=== PATIENT | female | born 1950 | race Caucasian/White ===

== ENCOUNTER 2016-07-16 19:45 | Outpatient (CLI) | payer MEDICARE, OTHER ==
[~2016-07-16 19:45] MED LIST: ALPR0.5T7 PO; ASPI-587 PO; CALC-671 PO; CHOL200014 PO; DIVA250T4 PO; FLEC100T PO; FLECAINIDE; FLUO20CA42 PO; HYDR-2890; LEVO125T PO; LISI40TA PO; LISINOPRIL; MULT-1039 PO; NAPR500T8 PO; OMEP40CA36 PO; ONDA-42 SL; SERT100T8; SIMV40TA4 PO; SYNTHROID; TRAZ150T72 PO; [UNRECOGNIZED DRUG - OTHER] PO
== END 2016-07-17 06:35 | disposition home or self-care (01) ==
LOC: SLEEP 19:45
PROVIDERS: ATTEND Nurse Practitioner Family
DX: G47.33 Obstructive sleep apnea (adult) (pediatric) (principal)
CPT/HCPCS: 95811

== ENCOUNTER → 2016-07-19 | Outpatient (CLI) | payer MEDICARE, OTHER ==
--- NOTE | 2016-08-01 20:27 | Diagnostic Imaging Report ---
Bilateral screening mammogram. The current study was also evaluated with a Computer Aided Detection (CAD) system. INDICATION: Screening. No current complaints stated on the questionnaire. COMPARISON: 07/18/2015. FINDINGS: The breasts are composed of heterogeneously dense parenchyma which may decrease mammographic sensitivity. Multiple benign-appearing calcifications are seen. Allowing for technique and positional differences, no suspicious change is seen. IMPRESSION: Dense breasts with no definite change. ACR BI-RADS Category 2: Benign findings. Result letter will be mailed to the patient. Note: At least 10% of breast cancer is not imaged by mammography. Dictated by: Dictated on workstation # [id number]
== END ==
LOC: RAD 09:38
PROVIDERS: ATTEND Nurse Practitioner Community Health
DX: Z12.31 Encounter for screening mammogram for malignant neoplasm of breast (principal)
CPT/HCPCS: 77067

== ENCOUNTER 2016-08-01 09:19 | Outpatient (RCR) | payer MEDICARE, OTHER ==
[2016-07-22 15:09] LABS: INR 1.9 (0.8-1.4); PROTHROMBIN TIME PATIENT 21.7 SEC (12.2-14.7)
[2016-08-01 09:54] LABS: INR 1.4 (0.8-1.4); PROTHROMBIN TIME PATIENT 17.2 SEC (12.2-14.7)
[2016-08-09 10:18] LABS: INR 1.5 (0.8-1.4); PROTHROMBIN TIME PATIENT 17.7 SEC (12.2-14.7)
== END 2016-10-20 | disposition home or self-care (01) ==
LOC: LAB 09:19
PROVIDERS: ATTEND Nurse Practitioner Family
DX: I48.0 Paroxysmal atrial fibrillation (principal)
CPT/HCPCS: 36415; 85610

== ENCOUNTER → 2017-08-18 | Outpatient (CLI) | payer MEDICARE, OTHER ==
--- NOTE | 2017-08-18 11:15 | Diagnostic Imaging Report ---
INDICATION: Routine screening. COMPARISON: 07/19/2016 and 07/18/2015. TECHNIQUE: 2D and 3D bilateral screening mammography was performed with CAD. FINDINGS: Scattered fibroglandular densities are identified bilaterally. Benign-appearing calcifications are identified bilaterally. No spiculated mass or malignant appearing microcalcifications are seen. The axillae are unremarkable. IMPRESSION: No mammographic features suspicious for malignancy are identified. ACR BI-RADS Category 2: Benign findings. Result letter will be mailed to the patient. Note: At least 10% of breast cancer is not imaged by mammography. Dictated by: Dictated on workstation # [id number]
== END ==
LOC: RAD 08:27
PROVIDERS: ATTEND Nurse Practitioner Community Health
DX: Z12.31 Encounter for screening mammogram for malignant neoplasm of breast (principal)
CPT/HCPCS: 77067

== ENCOUNTER → 2017-12-11 | Outpatient (CLI) | payer MEDICARE, OTHER ==
[~2017-12-11] MED LIST changes: +APIX5TAB PO; +ASPI81TA16 PO; +CALC-694 PO; -CHOL200014 PO; +CHOL200085 PO; +DIVA-74 PO; +DIVA250T12 PO; -DIVA250T4 PO; +FLUO40CA PO; +LEVO100T7 PO
[2017-12-11 10:19] LABS: RED BLOOD COUNT 3.72 10^6/uL (4.35-5.85); RETICULOCYTE % 1.61 % (0.50-2.40)
[2017-12-11 13:06] LABS: BILIRUBIN,URINE NEGATIVE (NEGATIVE); CLARITY,URINE CLEAR; COLOR,URINE YELLOW; GLUCOSE, URINE (UA) NEGATIVE (NEGATIVE); KETONES,URINE NEGATIVE (NEGATIVE); LEUKOCYTE ESTERASE ,URINE 1+ (NEGATIVE); NITRITE,URINE NEGATIVE (NEGATIVE); PH,URINE 8 (5-9); PROTEIN,URINE NEGATIVE (NEGATIVE); UROBILINOGEN,URINE 1 MG/DL (NORMAL)
[2017-12-11 13:19] LABS: BACTERIA,URINE LARGE /HPF; RBC,URINE 0-2 /HPF
== END ==
LOC: LAB 09:59
PROVIDERS: ATTEND Nurse Practitioner Community Health
DX: D50.9 Iron deficiency anemia, unspecified (principal)
CPT/HCPCS: 36415; 81000; 82607; 82728; 82746; 83540; 85045; 87088; 87186

== ENCOUNTER 2017-12-25 10:15 | Outpatient (CLI) | payer MEDICARE, OTHER ==
[~2017-12-25] VITALS: Ht 167.6 cm; Wt 61.2 kg
[~2017-12-25 10:15] MED LIST changes: -APIX5TAB PO; -ASPI81TA16 PO; -CALC-694 PO; -DIVA250T12 PO; -FLUO40CA PO; -LEVO100T7 PO
[2017-12-25] MEDS ORDERED: DIVA250T12 PO (10:26)
[2017-12-25] MEDS ORDERED: ASPI81TA16 PO (10:26)
[2017-12-25] MEDS ORDERED: CALC-694 PO (10:26)
[2017-12-25] MEDS ORDERED: LEVO100T7 PO (10:26)
[2017-12-25] MEDS ORDERED: FLUO40CA PO (10:26)
[2017-12-25] MEDS ORDERED: APIX5TAB PO (10:26)
== END 2017-12-25 11:59 | disposition home or self-care (01) ==
LOC: PREOP 10:15
PROVIDERS: ATTEND Surgery
DX: Z01.818 Encounter for other preprocedural examination (principal)

== ENCOUNTER 2017-12-29 07:33 | Day surgery (SDC) | payer MEDICARE, OTHER ==
[~2017-12-29] VITALS: Ht 167.6 cm; Wt 61.2 kg
[~2017-12-29 07:33] MED LIST changes: +APIX5TAB PO; +ASPI81TA16 PO; +CALC-694 PO; +DIVA250T12 PO; +FLUO40CA PO; +LEVO100T7 PO
[2017-12-29] MEDS ORDERED: NS IV 500 ML 500 ML ONE (07:42)
[2017-12-29] MEDS ORDERED: NS IV 500 ML 500 ML IV PRN (07:47)
[2017-12-29 07:58] VITALS: BP 163/88
[2017-12-29] MEDS ORDERED: HURRICAINE EXT TUBE (BENZOCAINE) XX PRN (08:00)
[2017-12-29] MEDS ORDERED: fentaNYL INJECTION 100 MCG/2 ML AMP IVP ONE (08:00)
[2017-12-29] MEDS ORDERED: MIDAZOLAM 2 MG/2 ML (VERSED) VIAL IVP ONE (08:00)
[2017-12-29] MEDS ORDERED: MIDAZOLAM 2 MG/2 ML (VERSED) VIAL ONE ×6 (08:38→09:41)
[2017-12-29] MEDS ORDERED: fentaNYL INJECTION 100 MCG/2 ML AMP ONE (08:38)
[2017-12-29] MEDS ORDERED: HURRICAINE EXT TUBE (BENZOCAINE) ONE (08:38)
--- NOTE | 2017-12-29 10:00 | History & Physicial ---
History of Present Illness History of Present Illness Reason for visit/HPI to undergo an upper endoscopy with concomitant colonoscopy, in view of Sheri deficiency anemia. In addition, she has a family history of colon cancer as well. Date of Admission 12/29/17 Date Seen by a Provider: Dec 29, 2017 Time Seen by a Provider: 08:10 I consulted on this patient on 12/29/17 09:58 Attending Physician Ayaan Small MD Admitting Physician Faviola William DO Consult Allergies and Home Medications Allergies Coded Allergies: No Known Drug Allergies (Unverified , 03/14/16) Home Medications Apixaban 5 Mg Tablet, 5 MG PO BID, (Reported) Aspirin 81 Mg Tablet.dr, 81 MG PO HS, (Reported) Calcium Carbonate/Vitamin D3 1 Each Tablet, 1 EACH PO DAILY, (Reported) Divalproex Sodium 250 Mg Tab.er.24h, 250 MG PO HS, (Reported) Flecainide Acetate 100 Mg Tablet, 100 MG PO BID, (Reported) Fluoxetine HCl 40 Mg Capsule, 40 MG PO DAILY, (Reported) Levothyroxine Sodium 100 Mcg Tablet, 100 MCG PO DAILY, (Reported) Lisinopril 40 Mg Tablet, 40 MG PO DAILY, (Reported) Multivit-Min/FA/Lycopene/Lut 1 Each Tablet, 1 EACH PO DAILY, (Reported) Naproxen 500 Mg Tablet.dr, 500 MG PO Q12H PRN for BACK PAIN, (Reported) Omeprazole 40 Mg Capsule.dr, 40 MG PO DAILY, (Reported) Simvastatin 40 Mg Tablet, 40 MG PO HS, (Reported) Patient Home Medication List Home Medication List Reviewed: Yes Past Hyliiti-Pojjtn-Xignmy Hx Patient Social History Marrital Status: Employed/Student: retired Alcohol Use: Denies Use Recreational Drug Use: No Smoking Status: Former Smoker Former Smoker, Quit: Mar 14, 2000 Type Used: Cigarettes Recent Foreign Travel: No Contact w/other who traveled: No Recent Hopitalizations: No Recent Infectious Disease Expo: No Immunizations Up To Date Tetanus Booster (TDap): Less than 5yrs Date of Pneumonia Vaccine: Mar 14, 2015 Date of Influenza Vaccine: Jan 08, 2016 Seasonal Allergies Seasonal Allergies: No Surgeries Yes Hysterectomy, Joint Replacement, Orthopedic, Tonsillectomy, Tubal Ligation Respiratory No Currently Using CPAP: No Cardiovascular Yes Atrial Fibrillation, Hypertension Reproductive System Hx Reproductive Disorders: No Sexually Transmitted Disease: No HIV/AIDS: No 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 BALLS History: Hysterectomy Gastrointestinal Yes Polyps Musculoskeletal Yes Arthritis, Chronic Back Pain Endocrine Endocrine Disorders: Hypothyroidsim HEENT HEENT Disorders: Cataract Loss of Vision: Bilateral Hearing Impairment: Denies Psychosocial Behavioral Health Disorders: Anxiety, Depression Blood Transfusions Adverse Reaction to a Blood Tr: No (N/A) Family Medical History Family Hx: Colon cancer Review of Systems Constitutional: no symptoms reported EENTM: no symptoms reported Respiratory: no symptoms reported Cardiovascular: no symptoms reported Gastrointestinal: see HPI Genitourinary: no symptoms reported Musculoskeletal: joint pain Skin: no symptoms reported Psychiatric/Neurological: No Symptoms Reported Physical Exam Vital Signs Vital Signs - First Documented 12/29/17 07:58 Temp 97.1 Pulse 56 Resp 16 B/P (MAP) 163/88 (113) Pulse Ox 100 O2 Delivery Room Air Capillary Refill : Height, Weight, BMI Height: 5'6.00" Weight: 135lbs. 0.0oz. 61.499972vn; 21.8 BMI Method:Stated General Appearance: No Apparent Distress Respiratory: Lungs Clear Cardiovascular: Regular Rate, Rhythm Gastrointestinal: Non Tender, Soft Rectal: Deferred Neurologic/Psychiatric: Oriented x3 Skin: Warm/Dry Assessment/Plan Assessment and Plan lady with iron deficiency anemia and a family history of colon cancer. For upper endoscopy with colonoscopy Admission Diagnosis Admission Status: Other (Outpt Proc) AYAAN SMALL MD Dec 29, 2017 10:00
--- NOTE | 2017-12-29 10:03 | Conscious Sedation/ASA ---
Conscious Sedation Pre-Proced Time 08:12 ASA Score 2 For ASA 3 and 4: Consider anesthesia and medical clearance. Also, for patients with a history of failed moderate sedation consider anesthesia. Airway Lungs Heart ASA score ASA 1: a normal healthy patient ASA 2: a patient with a mild systemic disease (mid diabetes, controlled hypertension, obesity ASA 3: a patient with a severe systemic disease that limits activity (angina , COPD, prior Myocardial infarction) ASA 4: a patient with an incapacitating disease that is a constant threat to life (CHF, renal failure) ASA 5: a moribund patient not expected to survive 24 hrs. (ruptured aneurysm) ASA 6: a declared brain patient whose organs are being harvested. For emergent operations, add the letter E after the classification Mallampati Classification Grade 1 Sedation Plan Discussed options with patient/fam The patient is an appropriate candidate to undergo the planned procedure, sedation, and anesthesia. The patient immediately re-assessed prior to indication. ABDOUL SMALL MD Dec 29, 2017 10:03
--- OUTSIDE RECORDS SUMMARY | 2017-12-29 10:04 | XMS REPORT ---
Author Author TINO GRESHAM [facility] Address [address] [place] [address] Care Team Providers Care Catalogue Maker Name Role Phone TINO GRESHAM Unavailable PROBLEMS Type Condition ICD9-CM Code VTZ00-OA Code Onset Dates Condition Status SNOMED Code Problem Hypothyroidism, unspecified type E03.9 Active 24516850 Problem Atrial fibrillation, unspecified type I48.91 Active 03009724 Problem Hyperlipidemia, unspecified hyperlipidemia type E78.5 Active 58198781 Problem Abnormal laboratory test result R89.9 Active 642492469 Problem Frequent falls R29.6 Active 744082611 Problem Anxiety F41.9 Active 82095245 Problem Anemia, unspecified type D64.9 Active 452122392 Problem Essential hypertension I10 Active 61548847 Problem Sleep apnea in adult G47.33 Active 23820783 Problem Sleep apnea in adult G47.30 Active 37980399 Problem Psychophysiological insomnia F51.04 Active 958772162 Problem Microcytic anemia D50.9 Active 274147486 Problem Other bipolar disorder F31.89 Active 50300254 Problem Hypertriglyceridemia E78.1 Active 308193032 Problem Forgetfulness R68.89 Active 92836358 Problem Chronic atrial fibrillation I48.2 Active 764617260 Problem Other chronic pain G89.29 Active 35708976 Problem Unspecified symptoms and signs involving cognitive functions and awareness R41.9 Active 000020879 Problem Depression, unspecified depression type F32.9 Active 66595017 Problem Dorsalgia, unspecified M54.9 Active 709073110 Problem PAF (paroxysmal atrial fibrillation) I48.0 Active 787963146 ALLERGIES No Information ENCOUNTERS Encounter Location Date Diagnosis [facility] [address] [facility] [id number] [address] Feb, [facility] [address] [facility] [id number] [address] Nov, [facility] [id number] [place] [address]86[address] 13 Nov, 2017 Microcytic anemia D50.9 ; Diaper rash L22 ; Urinary tract infection without hematuria, site unspecified N39.0 and Anxiety F41.9 [facility] [id number] [place] [address] 19712- 8762 12 Nov, 2017 Microcytic anemia D50.9 [facility] [id number] [place] [address] 10865- 9359 Oct, Hypertriglyceridemia E78.1 and Abnormal laboratory test result R89.9 [place] [address] [address] Aug, PAF (paroxysmal atrial fibrillation) I48.0 ; Hyperlipidemia , unspecified hyperlipidemia type E78.5 ; Essential hypertension I10 and Sleep apnea in adult G47.30 [place] [address] [address] July, Hypertriglyceridemia E78.1 and Abnormal laboratory test result R89.9 [facility] [id number] [place] [address] 76513- 2605 July, Chronic atrial fibrillation I48.2 and Hypothyroidism, unspecified type E03.9 [facility] [id number] [place] [address] 98872- 2063 16 Jul, 2017 Sleep apnea in adult G47.33 ; Chronic atrial fibrillation I48.2 ; Depression, unspecified depression type F32.9 ; Essential hypertension I10 ; Hypothyroidism, unspecified type E03.9 ; Encounter for screening mammogram for breast cancer Z12.31 and Anxiety F41.9 [place] [id number] [place] [address] 96572- 4730 Jun, [facility] [id number] [place] [address]6479 -9989 09 May, 2017 Acute nasopharyngitis J00 [place] [id number] [place] [address] 76136- 6928 Jan, Medicare annual wellness visit, initial Z00.00 and Encounter for immunization Z23 [place] [id number] [place] [address] 21523- 8738 20 Nov, 2016 [facility] [place] [id number] [place] [address] 89068- 9742 13 Nov, 2016 Sebaceous cyst L72.3 [place] [address] [address] Oct, Other eczema L30.8 [facility] [id number] [place] [address] 95997- 7076 Sep, Hyperlipidemia, unspecified hyperlipidemia type E78.5 and Sleep apnea in adult G47.33 [facility] [place] [id number] [place] [address] 64393- 0815 Sep, PAF (paroxysmal atrial fibrillation) I48.0 ; Hyperlipidemia , unspecified hyperlipidemia type E78.5 ; Sleep apnea in adult G47.33 and Essential hypertension I10 [place] [id number] [place] [address] 26481- 8485 Aug, Hypothyroidism, unspecified type E03.9 ; PAF (paroxysmal atrial fibrillation) I48.0 ; Hyperlipidemia, unspecified hyperlipidemia type E78.5 ; Sleep apnea in adult G47.33 and Essential hypertension I10 [place] [id number] [place] [address] 26600- 0233 Jun, PAF (paroxysmal atrial fibrillation) I48.0 ; Hyperlipidemia , unspecified hyperlipidemia type E78.5 ; Sleep apnea in adult G47.33 and Essential hypertension I10 [place] [id number] [place] [address] 15745- 0854 Jun, PAF (paroxysmal atrial fibrillation) I48.0 ; Hyperlipidemia , unspecified hyperlipidemia type E78.5 ; Sleep apnea in adult G47.33 and Essential hypertension I10 [place] [id number] [place] [address] 35079- 9694 Jun, Breast cancer screening Z12.39 ; Yeast vaginitis B37.3 ; Sleep apnea in adult G47.30 and Encounter for immunization Z23 [place] [id number] [place] [address] 84142- 0152 May, Hypothyroidism, unspecified type E03.9 [facility] [place] [id number] [place] [address] 12370- 9346 May, Hypothyroidism, unspecified type E03.9 [facility] [place] [id number] [place] [address] 41975- 3115 May, Hypothyroidism, unspecified type E03.9 [place] [address] 91700- 8289 May, [facility] [id number] [place] [address] 48100- 1678 May, Other bipolar disorder F31.89 [place] [address] 45782- 1683 May, Other bipolar disorder F31.89 [facility] [place] [id number] [place] [address] 61964- 8643 Mar, PAF (paroxysmal atrial fibrillation) I48.0 ; Essential hypertension I10 ; Hyperlipidemia, unspecified hyperlipidemia type E78.5 and Sleep apnea in adult G47.33 [place] [id number] [place] [address] 31774- 4168 Mar, Depression, unspecified depression type F32.9 ; Sleep apnea in adult G47.33 and Psychophysiological insomnia F51.04 [place] [id number] [place] [address] 14370- 1646 Feb, [place] [address] [address]- [address] Feb, [place] [id number] [place] [address] 78747- 9903 Jan, Other bipolar disorder F31.89 ; Polyp of colon, unspecified part of colon, unspecified type K63.5 and Left hip pain M25.552 [place] [address] [place] [address] 03511- 7117 Jan, [facility] [place] [id number] [place] [address] 30877- 3164 Jan, PAF (paroxysmal atrial fibrillation) I48.0 ; Palpitations R00.2 ; Pain in right leg M79.604 ; Pain of left leg M79.605 ; Sleep apnea in adult G47.33 ; Hypothyroidism, unspecified type E03.9 and Hyperlipidemia, unspecified hyperlipidemia type E78.5 [facility] [place] [id number] [place] [address] 79900- 3102 Dec, [place] [id number] [place] [address] 25741- 3601 Oct, Chronic atrial fibrillation I48.2 [place] [id number] [place] [address] 54974- 4647 Oct, Chronic atrial fibrillation I48.2 [facility] [place] [id number] [place] [address] 09071- 9346 Oct, Depression, unspecified depression type F32.9 ; Chronic atrial fibrillation I48.2 ; Other chronic pain G89.29 and Hyperlipidemia, unspecified hyperlipidemia type E78.5 [place] [address] [place] [address] 10013- 4292 Sep, [place] [id number] [place] [address] 71886- 4459 Aug, [place] [id number] [place] [address] 62145- 9320 Aug, Dorsalgia, unspecified M54.9 ; Other chronic pain G89.29 ; Depression, unspecified depression type F32.9 and Chronic atrial fibrillation I48.2 [place] [id number] [place] [address] 15524- 9122 Aug, Other bipolar disorder F31.89 and Unspecified symptoms and signs involving cognitive functions and awareness R41.9 [facility] [address] [address] Aug, Dental examination Z01.20 [facility] [address] [address] Aug, [facility] [id number] [place] [address] 61662- 0048 Aug, Other bipolar disorder F31.89 [facility] [id number] [place] [address] 27224- 7595 Aug, [facility] [id number] [place] [address] 98315- 8850 July, [facility] [id number] [place] [address] 39715- 2126 July, [facility] [id number] [place] [address] 88811- 2805 July, Other bipolar disorder F31.89 [facility] [id number] [place] [address] 48017- 7402 July, Other bipolar disorder F31.89 and Unspecified symptoms and signs involving cognitive functions and awareness R41.9 [place] [address] [address] July, Establishing care with new doctor, encounter for Z71.89 ; Bianca F30.9 ; Essential hypertension I10 and Hyperlipidemia, unspecified hyperlipidemia type E78.5 IMMUNIZATIONS No Known Immunizations SOCIAL HISTORY Never Assessed REASON FOR VISIT Lab (walk-in) PLAN OF CARE VITAL SIGNS MEDICATIONS Unknown Medications RESULTS No Results PROCEDURES Procedure Date Ordered Result Body Site LAB NOT BILLED BY [facility] Nov 18, 2017 INSTRUCTIONS MEDICATIONS ADMINISTERED No Known Medications MEDICAL (GENERAL) HISTORY Type Description Date Medical History Hyperlipidemia, unspecified hyperlipidemia type Medical History Essential (primary) hypertension Medical History Cardiac arrhythmia, unspecified Medical History Sleep apnea, unspecified Medical History right rotator cuff pain Medical History bulging discs in her back. Has had epidurals without benefit. Medical History irregular heart beat Medical History Normal Echo 01/2016 EF 65% Surgical History right hip replacement 2013 Surgical History hysterectomy, total with bilateral salpingo-oophorectomy (BSO ) Surgical History tonsillectomy and adenoidectomy Surgical History colonoscopy Surgical History tubal ligation Hospitalization History Hospitalization History [facility]
--- OUTSIDE RECORDS SUMMARY | 2017-12-29 10:04 | XMS REPORT | Clinical Summary ---
Author Author [facility] Organization [facility] Address Unknown Phone Unavailable Care Team Providers Care Marketing Director Name Role Phone Yanira Ward MD PCP Roxi Meng MD Unavailable Carol Moran MD Unavailable Johnna Wilkinson RN Unavailable Unavailable Robb Tenorio MD Unavailable Clarissa Sanchez RN Unavailable Unavailable Franklin Washington RN Unavailable Unavailable Yin Gonzales PA-C Unavailable Chayito Irizarry Unavailable Unavailable Kristin Navarro LPN Unavailable Unavailable Source Comments Some departments are not documenting in the electronic medical record. If you do not see the information that you expected, contact Release of Information in the Health Information Management department at [phone] for further assistance in locating additional records.[facility] Allergies No Known Allergies Current Medications Prescription Sig. Disp. Refills Start End Date Status Date ezetimibe-simvastatin Take 1 Tab by mouth at 90 Tab 3 12/28/19 Active (VYTORIN) 10-40 mg tablet bedtime daily. 14 calcium carbonate/vitamin Take 1 Tab by mouth twice Active D-3 (OSCAL-500+D) 1250 daily with meals. Calcium mg/200 unit tablet Carb 1250mg delivers 500mg elemental Ca vitamins, multiple Take 1 Tab by mouth Active (MULTIPLE VITAMINS) daily. tablet FLECAINIDE ACETATE Take by mouth. Unknown Active (FLECAINIDE PO) dose - taking bid levothyroxine (SYNTHROID) Take 1 Tab by mouth 30 Tab 3 05/19/19 Active 100 mcg tablet daily. 15 ALPRAZolam (XANAX) 0.5 mg 1 Tab three times daily 60 Tab 0 08/31/19 Active tablet as needed. Leonardo borrero 15 lisinopril (PRINIVIL, TAKE 1 TABLET BY MOUTH 30 Tab 5 01/06/20 Active ZESTRIL) 40 mg tablet DAILY. 15 HYDROcodone-acetaminophen 1 Tab every 4 hours as 100 Tab 0 04/07/19 Active (+) (LORTAB, NORCO) needed for Pain Earliest 16 10-325 mg tablet Fill Date: 04/07/15 HYDROcodone/acetaminophen Take 1 Tab by mouth every 100 Tab 0 Active (+) (LORTAB, NORCO) 4 hours as needed for 16 10/325 mg tablet Pain Earliest Fill Date: 07/11/15 meloxicam (MOBIC) 7.5 mg Take 7.5 mg by mouth Active tablet daily. omeprazole DR(+) Take 20 mg by mouth Active (PRILOSEC) 20 mg capsule daily. sertraline (ZOLOFT) 100 Take 200 mg by mouth Active mg tablet daily. DOCOSAHEXANOIC ACID/EPA Take 2,400 mg by mouth Active (FISH OIL PO) twice daily. traZODone (DESYREL) 50 mg Take 1 Tab by mouth at 30 Tab 5 07/18/19 Active tablet bedtime daily. 16 cephalexin (KEFLEX) 500 Take 4 capsules by mouth 20 Cap 3 07/18/19 Active mg capsule one hour before dental 16 procedure. Use remaining capsules for future dental procedures. HYDROcodone/acetaminophen 1 Tab every 4 hours as 100 Tab 0 07/18/19 Active (+) (LORTAB, NORCO) needed for Pain 16 10/325 mg tablet Active Problems Problem Noted Date LEIGHA (obstructive sleep apnea) 05/18/2014 Paroxysmal A-fib (HCC) 05/18/2014 Oxygen desaturation during sleep 01/20/2014 Osteoarthritis 01/17/2014 S/P total hip arthroplasty 01/17/2014 Hip arthritis 12/07/2013 Back pain 09/11/2007 Hypercholesteremia 08/06/2007 Hypertension 08/06/2007 Depression 05/29/2000 Hypothyroidism 05/29/2000 Resolved Problems Problem Noted Date Resolved Date Other screening mammogram 05/20/2008 05/20/2008 Nonspecific abnormal results of liver function study 08/14/2007 08/23/2009 Nonspecific abnormal results of other endocrine function study 03/03/2007 05/20/2008 Abdominal pain, unspecified site 02/27/2007 02/17/2009 Immunizations Name Dates Previously Given Next Due FLU VACCINE >3YO 01/13/2012 Flu Vaccine 6-35 Months 02/16/2009 Flu Vaccine=>3 YO 01/29/2015 (Historical) Flu Vaccine 01/18/2014 Quadrivalent=>3 Yo (Preservative Free) Pneumococcal 07/18/2015 Vaccine(13-[facility]/immunocompromised adult) Td Vaccine 05/29/2000 Tdap Vaccine 07/15/2011 Varicella-Zoster Vaccine 07/15/2011 - live (ZOSTAVAX) Family History Medical History Relation Name Comments High Cholesterol Brother Relation Name Status Comments Brother CAD- metastatic cancer- pt thinks lung primary Brother Etoh-head and neck cancer (Age 66) Brother Father CVA (Age 75) Mother colon cancer (Age 53) Sister brain tumor (Age 60) Social History Tobacco Use Types Packs/Day Years Used Date Former Smoker Cigarettes 30 Quit: 10/30/1999 Smokeless Tobacco: Never Used Tobacco Cessation: Counseling Given: Yes Comments: quit at age 49 Alcohol Use Drinks/Week oz/Week Comments No 0 Standard 0.0 drinks or equivalent Sex Assigned at Date Recorded Not on file Last Filed Vital Signs Vital Sign Reading Time Taken Blood Pressure 140/70 07/18/2015 8:51 AM CDT Pulse 56 07/18/2015 8:51 AM CDT Temperature 36.7 C (98.1 F) 01/20/2014 6:28 AM CDT Respiratory Rate 16 05/20/2008 9:00 AM SHANKER OUT Oxygen Saturation 95% 01/20/2014 9:14 AM CDT Inhaled Oxygen - - Concentration Weight 68.3 kg (150 lb 8 oz) 07/18/2015 8:51 AM CDT Height 167.6 cm (5' 6") 07/18/2015 8:51 AM CDT Body Mass Index 24.29 07/18/2015 8:51 AM CDT Plan of Treatment Health Maintenance Due Date Last Done Comments SHINGLES RECOMBINANT 09/13/1999 VACCINE (1 of 2) PHYSICAL (COMPREHENSIVE) 05/18/2015 05/18/2014, 04/09/2013, 06/29/2012, EXAM Additional history exists BREAST CANCER SCREENING 07/17/2016 07/18/2015, 05/18/2014, 04/09/2013, Additional history exists PNEUMONIA (PCV13/PPSV23) 07/17/2016 07/18/2015 VACCINES (2 of 2 - PPSV23) INFLUENZA VACCINE 10/29/2017 01/29/2015, 12/29/2014, 01/18/2014, Additional history exists COLORECTAL CANCER 08/22/2020 08/22/2010, 08/22/2010 SCREENING TETANUS VACCINE 07/14/2021 07/15/2011, 05/29/2000 HEPATITIS C SCREENING Completed 03/06/2007 OSTEOPOROSIS SCREENING Completed 08/07/2010 PERTUSSIS VACCINE Completed 07/15/2011 Results Not on filefrom Last 3 Months
--- OUTSIDE RECORDS SUMMARY | 2017-12-29 10:04 | XMS REPORT ---
Author Author TREVA HATFIELD [facility] Address [address] [place] [address] Care Team Providers Care Dry Goods Clerk Name Role Phone ADAMAALEXANDRATREVA Unavailable PROBLEMS Type Condition ICD9-CM Code SGB65-RI Code Onset Dates Condition Status SNOMED Code Problem Hyperlipidemia, unspecified hyperlipidemia type E78.5 Active 45911443 Problem PAF (paroxysmal atrial fibrillation) I48.0 Active 073187051 Problem Atrial fibrillation, unspecified type I48.91 Active 41287373 Problem Abnormal laboratory test result R89.9 Active 473005623 Problem Anxiety F41.9 Active 51783067 Problem Essential hypertension I10 Active 20442935 Problem Sleep apnea in adult G47.33 Active 46945022 Problem Sleep apnea in adult G47.30 Active 09963413 Problem Psychophysiological insomnia F51.04 Active 127886973 Problem Hypertriglyceridemia E78.1 Active 396771063 Problem Other bipolar disorder F31.89 Active 74517152 Problem Microcytic anemia D50.9 Active 135630894 Problem Chronic atrial fibrillation I48.2 Active 403474278 Problem Other chronic pain G89.29 Active 45195253 Problem Unspecified symptoms and signs involving cognitive functions and awareness R41.9 Active 363481374 Problem Depression, unspecified depression type F32.9 Active 90140824 Problem Dorsalgia, unspecified M54.9 Active 775871144 Problem Hypothyroidism, unspecified type E03.9 Active 07200495 ALLERGIES No Known Allergies ENCOUNTERS Encounter Location Date Diagnosis [facility] [id number] [address] Feb, [facility] [address] [place] [address]92[address] Oct, Hypertriglyceridemia E78.1 and Abnormal laboratory test result R89.9 [facility] [id number], [place] [address] Aug, PAF (paroxysmal atrial fibrillation) I48.0 ; Hyperlipidemia , unspecified hyperlipidemia type E78.5 ; Essential hypertension I10 and Sleep apnea in adult G47.30 [facility] [id number] [place] [address] 6[address]32- 3737 July, Hypertriglyceridemia E78.1 and Abnormal laboratory test result R89.9 [facility] [address] [address] July, Chronic atrial fibrillation I48.2 and Hypothyroidism, unspecified type E03.9 [facility] [address] [address] July, Sleep apnea in adult G47.33 ; Chronic atrial fibrillation I48.2 ; Depression, unspecified depression type F32.9 ; Essential hypertension I10 ; Hypothyroidism, unspecified type E03.9 ; Encounter for screening mammogram for breast cancer Z12.31 and Anxiety F41.9 [facility] [address] [address] Jun, [facility] [address] [address] 09 May, 2017 Acute nasopharyngitis J00 [place] [address] [address] Jan, Medicare annual wellness visit, initial Z00.00 and Encounter for immunization Z23 [facility] [address] [address] Nov, [facility] [address] [address]- [address] Nov, Sebaceous cyst L72.3 [facility] [address] [address]- [address] Oct, Other eczema L30.[address] [address] Sep, Hyperlipidemia, unspecified hyperlipidemia type E78.5 and Sleep apnea in adult G47.33 [facility] [facility] [id number] [place] [address] 23436- 8993 Sep, PAF (paroxysmal atrial fibrillation) I48.0 ; Hyperlipidemia , unspecified hyperlipidemia type E78.5 ; Sleep apnea in adult G47.33 and Essential hypertension I10 [facility] [id number] [place] [address] 19745- 0221 Aug, Hypothyroidism, unspecified type E03.9 ; PAF (paroxysmal atrial fibrillation) I48.0 ; Hyperlipidemia, unspecified hyperlipidemia type E78.5 ; Sleep apnea in adult G47.33 and Essential hypertension I10 [facility] [address] [address] Jun, PAF (paroxysmal atrial fibrillation) I48.0 ; Hyperlipidemia , unspecified hyperlipidemia type E78.5 ; Sleep apnea in adult G47.33 and Essential hypertension I10 [facility] [id number] [place] [address] 64720- 8836 Jun, PAF (paroxysmal atrial fibrillation) I48.0 ; Hyperlipidemia , unspecified hyperlipidemia type E78.5 ; Sleep apnea in adult G47.33 and Essential hypertension I10 [facility] [id number] [place] [address] 60447- 6410 Jun, Breast cancer screening Z12.39 ; Yeast vaginitis B37.3 ; Sleep apnea in adult G47.30 and Encounter for immunization Z23 [facility] [id number] [place] [address] 06375- 0241 May, Hypothyroidism, unspecified type E03.9 [facility] [id number] [place] [address] 34791- 6311 May, Hypothyroidism, unspecified type E03.9 [facility] [id number] [place] [address] 05843- 3197 May, Hypothyroidism, unspecified type E03.9 [facility] [address] [address]- 14[address] May, [facility] [id number] [place] [address] 00429- 8068 May, Other bipolar disorder F31.89 [facility] [id number] [place] [address] 66820- 8985 May, Other bipolar disorder F31.89 [facility] [id number] [place] [address] 32972- 0298 Mar, PAF (paroxysmal atrial fibrillation) I48.0 ; Essential hypertension I10 ; Hyperlipidemia, unspecified hyperlipidemia type E78.5 and Sleep apnea in adult G47.33 [facility] [address] [address]- 3[address] Mar, Depression, unspecified depression type F32.9 ; Sleep apnea in adult G47.33 and Psychophysiological insomnia F51.04 [facility] [id number] [place] [address] 61845- 1198 Feb, [facility] [id number] [place] [address] 42035- 8974 Feb, [facility] [id number] [place] [address] 20760- 2587 Jan, Other bipolar disorder F31.89 ; Polyp of colon, unspecified part of colon, unspecified type K63.5 and Left hip pain M25.552 [facility] [id number] [place] [address] 02779- 0300 Jan, [facility] [id number] [place] [address] 77383- 1267 Jan, PAF (paroxysmal atrial fibrillation) I48.0 ; Palpitations R00.2 ; Pain in right leg M79.604 ; Pain of left leg M79.605 ; Sleep apnea in adult G47.33 ; Hypothyroidism, unspecified type E03.9 and Hyperlipidemia, unspecified hyperlipidemia type E78.5 [facility] [id number] [place] [address] 42291- 9373 Dec, [facility] [address] [address] Oct, Chronic atrial fibrillation I48.2 [facility] [id number] [place] [address] 05115- 8046 Oct, Chronic atrial fibrillation I48.2 [facility] [id number] [place] [address] 79607- 3253 Oct, Depression, unspecified depression type F32.9 ; Chronic atrial fibrillation I48.2 ; Other chronic pain G89.29 and Hyperlipidemia, unspecified hyperlipidemia type E78.5 [facility] [id number] [place] [address] 19565- 6795 Sep, [facility] [id number] [place] [address] 71457- 9041 Aug, [facility] [id number] [place] [address] 98674- 4823 Aug, Dorsalgia, unspecified M54.9 ; Other chronic pain G89.29 ; Depression, unspecified depression type F32.9 and Chronic atrial fibrillation I48.2 [facility] [id number] [place] [address] 81022- 1279 Aug, Other bipolar disorder F31.89 and Unspecified symptoms and signs involving cognitive functions and awareness R41.9 [facility] [address] [place] [address] 18132- 8489 Aug, Dental examination Z01.20 [facility] [id number] [place] [address] 96711- 4017 Aug, [facility] [id number] [place] [address] 69428- 2773 Aug, Other bipolar disorder F31.89 [facility] [id number] [place] [address] 42939- 9475 Aug, [facility] [id number] [place] [address] 72522- 7493 July, [place] [address] [facility] [id number] [address] July, [place] [place] [address] [facility] [id number] [address] July, Other bipolar disorder F31.89 [facility] [id number], [place] [address] July, Other bipolar disorder F31.89 and Unspecified symptoms and signs involving cognitive functions and awareness R41.9 [facility] [address] [facility] [id number] [address] July, Establishing care with new doctor, encounter for Z71.89 ; Bianca F30.9 ; Essential hypertension I10 and Hyperlipidemia, unspecified hyperlipidemia type E78.5 IMMUNIZATIONS No Known Immunizations SOCIAL HISTORY Never Assessed REASON FOR VISIT f/u (last seen 09/2016) PLAN OF CARE Activity Details Follow Up 6 Months Reason: VITAL SIGNS Height 66.0 in 2017-09-10 Weight 132 lbs 2017-09-10 Heart Rate 60 bpm 2017-09-10 Oximetry 91 % 2017-09-10 BMI 21.30 kg/m2 2017-09-10 Blood pressure systolic 130 mmHg 2017-09-10 Blood pressure diastolic 70 mmHg 2017-09-10 MEDICATIONS Medication Instructions Dosage Frequency Start Date End Date Duration Status Zocor 40 mg Orally Once a day 1 tablet in the evening 24h 90 Active Prilosec 40 mg Orally Once a day 1 capsule 24h 30 Active Lisinopril 40 mg Orally Once a day 1 tablet 24h 90 Active Flecainide Acetate 100 MG Orally 2 times a day 1 tablet 12h 90 Active Fluoxetine HCl 40 MG TAKE ONE CAPSULE BY MOUTH ONCE DAILY IN THE MORNING 90 Active Fish Oil 1200 MG Orally twice a day 2 capsules 12h Active Multivitamin Adult Active Lorazepam 0.5 MG Orally Once a day as needed 1 tablet as needed July, Active Depakote ER 250 MG Orally Once a day 1 tablet at bedtime 24h 90 Active Naproxen 500 MG TAKE ONE TABLET BY MOUTH EVERY 12 HOURS NEEDED FOR BACK PAIN 90 Active Triamcinolone Acetonide 0.5 % Externally Twice a day for 10 days and then prn. Apply Desitin over the triamcinolone 1 application to affected area Oct, Not-Taking Levothyroxine Sodium 100 MCG Orally Once a day 1 tablet 24h 90 Active Prozac 40 mg Orally Once a day 1 capsule in the morning 24h 30 Active Calcium 200 mg Orally Twice a day 1 tablet 12h Active Eliquis 5 MG Orally BID 1 tablet 12h Active Aspirin Adult Low Dose 81 MG Orally Once a day 1 tablet 24h Active RESULTS No Results PROCEDURES Procedure Date Ordered Result Body Site [facility] VISIT ESTABLISHED PATIENT September 10, 2017 INSTRUCTIONS MEDICATIONS ADMINISTERED No Known Medications [...] History tubal ligation Hospitalization History Hospitalization History [facility]
--- OUTSIDE RECORDS SUMMARY | 2017-12-29 10:05 | XMS REPORT ---
Author Author TINO GRESHAM [facility] Address [address] [place] [address] Care Team Providers Care Puppy Sitter Name Role Phone TINO GRESHAM Unavailable PROBLEMS Type Condition ICD9-CM Code KEW50-BX Code Onset Dates Condition Status SNOMED Code Problem Hyperlipidemia, unspecified hyperlipidemia type E78.5 Active 46773410 Problem PAF (paroxysmal atrial fibrillation) I48.0 Active 517243655 Problem Atrial fibrillation, unspecified type I48.91 Active 08818155 Problem Abnormal laboratory test result R89.9 Active 792908854 Problem Anxiety F41.9 Active 40846457 Problem Essential hypertension I10 Active 70534675 Problem Sleep apnea in adult G47.33 Active 65903468 Problem Sleep apnea in adult G47.30 Active 07066190 Problem Psychophysiological insomnia F51.04 Active 927529907 Problem Hypertriglyceridemia E78.1 Active 432674569 Problem Other bipolar disorder F31.89 Active 33587416 Problem Microcytic anemia D50.9 Active 419858049 Problem Chronic atrial fibrillation I48.2 Active 157784334 Problem Other chronic pain G89.29 Active 62994043 Problem Unspecified symptoms and signs involving cognitive functions and awareness R41.9 Active 368440285 Problem Depression, unspecified depression type F32.9 Active 46756626 Problem Dorsalgia, unspecified M54.9 Active 259293850 Problem Hypothyroidism, unspecified type E03.9 Active 58698196 ALLERGIES No Information ENCOUNTERS Encounter Location Date Diagnosis [facility] [address] [facility] [id number] [address] Feb, [facility] [id number] [address] 13 Aug, 2017 PAF (paroxysmal atrial fibrillation) I48.0 ; Hyperlipidemia , unspecified hyperlipidemia type E78.5 ; Essential hypertension I10 and Sleep apnea in adult G47.30 [facility] [id number] [place] [address]13- 0507 July, Hypertriglyceridemia E78.1 and Abnormal laboratory test result R89.9 [place] [id number] [place] [address] 05333- 4810 July, Chronic atrial fibrillation I48.2 and Hypothyroidism, unspecified type E03.9 [facility] [facility] [address] [address]- [address] July, Sleep apnea in adult G47.33 ; Chronic atrial fibrillation I48.2 ; Depression, unspecified depression type F32.9 ; Essential hypertension I10 ; Hypothyroidism, unspecified type E03.9 ; Encounter for screening mammogram for breast cancer Z12.31 and Anxiety F41.9 [place] [address] 29[address]- [address] Jun, [facility] [address] [address] 09 May, 2017 Acute nasopharyngitis J00 [place] [address] 10253- 3234 Jan, Medicare annual wellness visit, initial Z00.00 and Encounter for immunization Z23 [place] [id number] [place] [address] 20362- 2177 20 Nov, 2016 [place] [address] [address]- [address]505 Nov, Sebaceous cyst L72.3 [place] [address] 53[address]- 1721 Oct, Other eczema L30.8 [place] [address] 02032- 6133 Sep, Hyperlipidemia, unspecified hyperlipidemia type E78.5 and Sleep apnea in adult G47.33 [facility] [facility] [address] 05080- 9192 Sep, PAF (paroxysmal atrial fibrillation) I48.0 ; Hyperlipidemia , unspecified hyperlipidemia type E78.5 ; Sleep apnea in adult G47.33 and Essential hypertension I10 [facility] [id number] [place] [address] 29113- 4657 Aug, Hypothyroidism, unspecified type E03.9 ; PAF (paroxysmal atrial fibrillation) I48.0 ; Hyperlipidemia, unspecified hyperlipidemia type E78.5 ; Sleep apnea in adult G47.33 and Essential hypertension I10 [facility] [id number] [place] [address] 69517- 7321 Jun, PAF (paroxysmal atrial fibrillation) I48.0 ; Hyperlipidemia , unspecified hyperlipidemia type E78.5 ; Sleep apnea in adult G47.33 and Essential hypertension I10 [place] [id number] [place] [address] 15007- 3018 Jun, PAF (paroxysmal atrial fibrillation) I48.0 ; Hyperlipidemia , unspecified hyperlipidemia type E78.5 ; Sleep apnea in adult G47.33 and Essential hypertension I10 [place] [id number] [place] [address] 61147- 4179 Jun, Breast cancer screening Z12.39 ; Yeast vaginitis B37.3 ; Sleep apnea in adult G47.30 and Encounter for immunization Z23 [place] [id number] [place] [address] 29588- 0908 May, Hypothyroidism, unspecified type E03.9 [place] [id number] [place] [address] 56201- 7736 May, Hypothyroidism, unspecified type E03.9 [place] [id number] [place] [address] 40229- 8602 May, Hypothyroidism, unspecified type E03.9 [place] [id number] [place] [address] 30657- 1335 May, [place] [id number] [place] [address] 59786- 3078 May, Other bipolar disorder F31.89 [place] [id number] [place] [address] 54244- 4515 May, Other bipolar disorder F31.89 [place] [id number] [place] [address] 34956- 5428 Mar, PAF (paroxysmal atrial fibrillation) I48.0 ; Essential hypertension I10 ; Hyperlipidemia, unspecified hyperlipidemia type E78.5 and Sleep apnea in adult G47.33 [place] [address] 76457- 5521 Mar, Depression, unspecified depression type F32.9 ; Sleep apnea in adult G47.33 and Psychophysiological insomnia F51.04 [place] [id number] [place] [address] 71857- 1231 Feb, [place] [address] 99432- 1481 Feb, [place] [address] 89156- 0705 Jan, Other bipolar disorder F31.89 ; Polyp of colon, unspecified part of colon, unspecified type K63.5 and Left hip pain M25.552 [place] [id number] [place] [address] 11585- 4292 Jan, [place] [id number] [place] [address] 69514- 0503 Jan, PAF (paroxysmal atrial fibrillation) I48.0 ; Palpitations R00.2 ; Pain in right leg M79.604 ; Pain of left leg M79.605 ; Sleep apnea in adult G47.33 ; Hypothyroidism, unspecified type E03.9 and Hyperlipidemia, unspecified hyperlipidemia type E78.5 [place] [id number] [place] [address] 90994- 2393 Dec, [place] [id number] [place] [address] 75457- 1100 Oct, Chronic atrial fibrillation I48.2 [facility] [address] [address]- 0839 Oct, Chronic atrial fibrillation I48.2 [place] [address] [place] [address] 33905- 7520 Oct, Depression, unspecified depression type F32.9 ; Chronic atrial fibrillation I48.2 ; Other chronic pain G89.29 and Hyperlipidemia, unspecified hyperlipidemia type E78.5 [place] [id number] [place] [address] 89953- 1321 Sep, [place] [id number] [place] [address] 17637- 0237 Aug, [place] [id number] [place] [address] 98943- 5682 Aug, Dorsalgia, unspecified M54.9 ; Other chronic pain G89.29 ; Depression, unspecified depression type F32.9 and Chronic atrial fibrillation I48.2 [place] [address] [place] [address] 05060- 0158 Aug, Other bipolar disorder F31.89 and Unspecified symptoms and signs involving cognitive functions and awareness R41.9 [place] [address] [address]- 0377 Aug, Dental examination Z01.20 [place] [id number] [place] [address] 23033- 1783 Aug, [place] [address] [address]- 8357 Aug, Other bipolar disorder F31.89 [place] [id number] [place] [address] 57988- 4827 Aug, [place] [address] [place] [address] 47512- 2342 July, [place] [id number] [place] [address] 71269- 9121 July, [facility] [address] [facility] [id number] [address]- 6768 July, Other bipolar disorder F31.89 [facility] [address] [facility] [id number] [address] 8[address] July, Other bipolar disorder F31.89 and Unspecified symptoms and signs involving cognitive functions and awareness R41.9 [facility] [address] [facility] [id number] [place] [address]- [address] July, Establishing care with new doctor, encounter for Z71.89 ; Bianca F30.9 ; Essential hypertension I10 and Hyperlipidemia, unspecified hyperlipidemia type E78.5 IMMUNIZATIONS No Known Immunizations SOCIAL HISTORY Never Assessed REASON FOR VISIT Dental Question/LVM PLAN OF CARE VITAL SIGNS MEDICATIONS Unknown Medications RESULTS No Results PROCEDURES No Known procedures INSTRUCTIONS MEDICATIONS ADMINISTERED No Known Medications MEDICAL [...]
--- OUTSIDE RECORDS SUMMARY | 2017-12-29 10:05 | XMS REPORT ---
Author Author TINO GRESHAM [facility] Address [address] [place] [address] Care Team Providers Care Manager Of Human Resources Name Role Phone TINO GRESHAM Unavailable PROBLEMS Type Condition ICD9-CM Code HZR26-GI Code Onset Dates Condition Status SNOMED Code Problem Hyperlipidemia, unspecified hyperlipidemia type E78.5 Active 44166596 Problem PAF (paroxysmal atrial fibrillation) I48.0 Active 922722320 Problem Atrial fibrillation, unspecified type I48.91 Active 32962264 Problem Abnormal laboratory test result R89.9 Active 313229278 Problem Anxiety F41.9 Active 01090335 Problem Essential hypertension I10 Active 56970848 Problem Sleep apnea in adult G47.33 Active 36035375 Problem Sleep apnea in adult G47.30 Active 37136921 Problem Psychophysiological insomnia F51.04 Active 780208436 Problem Hypertriglyceridemia E78.1 Active 157249924 Problem Other bipolar disorder F31.89 Active 41357139 Problem Microcytic anemia D50.9 Active 168502448 Problem Chronic atrial fibrillation I48.2 Active 455408980 Problem Other chronic pain G89.29 Active 31218346 Problem Unspecified symptoms and signs involving cognitive functions and awareness R41.9 Active 135271453 Problem Depression, unspecified depression type F32.9 Active 10342297 Problem Dorsalgia, unspecified M54.9 Active 003949122 Problem Hypothyroidism, unspecified type E03.9 Active 35980706 ALLERGIES No Information ENCOUNTERS Encounter Location Date Diagnosis [facility] [address] [facility] [id number] [address] Feb, [facility] [address] [id number] [address] 13 Aug, 2017 PAF (paroxysmal atrial fibrillation) I48.0 ; Hyperlipidemia , unspecified hyperlipidemia type E78.5 ; Essential hypertension I10 and Sleep apnea in adult G47.30 [facility] [id number] [place] [address]- 9[address] July, Hypertriglyceridemia E78.1 and Abnormal laboratory test result R89.9 [place] [id number] [place] [address] 8[address]24- [address] July, Chronic atrial fibrillation I48.2 and Hypothyroidism, unspecified type E03.9 [place] [address] [address] July, Sleep apnea in adult G47.33 ; Chronic atrial fibrillation I48.2 ; Depression, unspecified depression type F32.9 ; Essential hypertension I10 ; Hypothyroidism, unspecified type E03.9 ; Encounter for screening mammogram for breast cancer Z12.31 and Anxiety F41.9 [place] [address] [address] Jun, [facility] [address] [address] May, Acute nasopharyngitis J00 [place] [address] [address] Jan, Encounter for immunization Z23 and Medicare annual wellness visit, initial Z00.00 [place] [id number] [place] [address] 9[address]25- 6327 20 Nov, 2016 [place] [address] [address] Nov, Sebaceous cyst L72.3 [place] [address] [address]- 1212 Oct, Other eczema L30.8 [place] [address] [address]73- 8[address] Sep, Hyperlipidemia, unspecified hyperlipidemia type E78.5 and Sleep apnea in adult G47.33 [place] [address] [address]- [address] Sep, PAF (paroxysmal atrial fibrillation) I48.0 ; Hyperlipidemia , unspecified hyperlipidemia type E78.5 ; Sleep apnea in adult G47.33 and Essential hypertension I10 [facility] [id number] [place] [address] 13052- 0490 Aug, Hypothyroidism, unspecified type E03.9 ; PAF (paroxysmal atrial fibrillation) I48.0 ; Hyperlipidemia, unspecified hyperlipidemia type E78.5 ; Sleep apnea in adult G47.33 and Essential hypertension I10 [facility] [id number] [place] [address] 1952 Jun, PAF (paroxysmal atrial fibrillation) I48.0 ; Hyperlipidemia , unspecified hyperlipidemia type E78.5 ; Sleep apnea in adult G47.33 and Essential hypertension I10 [place] [id number] [place] [address] 39672- 7[address] Jun, PAF (paroxysmal atrial fibrillation) I48.0 ; Hyperlipidemia , unspecified hyperlipidemia type E78.5 ; Sleep apnea in adult G47.33 and Essential hypertension I10 [place] [id number] [place] [address] 75004- 6552 Jun, Breast cancer screening Z12.39 ; Yeast vaginitis B37.3 ; Sleep apnea in adult G47.30 and Encounter for immunization Z23 [place] [id number] [place] [address] 77194- 2852 May, Hypothyroidism, unspecified type E03.9 [place] [id number] [place] [address] 73590- 8299 May, Hypothyroidism, unspecified type E03.9 [place] [id number] [place] [address] 14962- 9458 May, Hypothyroidism, unspecified type E03.9 [place] [id number] [place] [address] 72896- 7191 May, [place] [id number] [place] [address] 63264- 7048 May, Other bipolar disorder F31.89 [place] [id number] [place] [address] 11579- 8658 May, Other bipolar disorder F31.89 [place] [id number] [place] [address] 15417- 9098 Mar, PAF (paroxysmal atrial fibrillation) I48.0 ; Essential hypertension I10 ; Hyperlipidemia, unspecified hyperlipidemia type E78.5 and Sleep apnea in adult G47.33 [place] [address] 6[address]- 6[address] Mar, Depression, unspecified depression type F32.9 ; Sleep apnea in adult G47.33 and Psychophysiological insomnia F51.04 [place] [id number] [place] [address] 15908- 3677 Feb, [place] [address] [address]- [address] Feb, [place] [address] [address]- 1360 Jan, Other bipolar disorder F31.89 ; Polyp of colon, unspecified part of colon, unspecified type K63.5 and Left hip pain M25.552 [place] [id number] [place] [address] 67170- 6791 Jan, [place] [id number] [place] [address] 07814- 3732 Jan, PAF (paroxysmal atrial fibrillation) I48.0 ; Palpitations R00.2 ; Pain in right leg M79.604 ; Pain of left leg M79.605 ; Sleep apnea in adult G47.33 ; Hypothyroidism, unspecified type E03.9 and Hyperlipidemia, unspecified hyperlipidemia type E78.5 [place] [id number] [place] [address] 76790- 5126 Dec, [place] [id number] [place] [address] 67978- 5021 Oct, Chronic atrial fibrillation I48.2 [facility] [address] [address] Oct, Chronic atrial fibrillation I48.2 [place] [address] [place] [address] 52089- 5618 Oct, Depression, unspecified depression type F32.9 ; Chronic atrial fibrillation I48.2 ; Other chronic pain G89.29 and Hyperlipidemia, unspecified hyperlipidemia type E78.5 [place] [id number] [place] [address] 38757- 0474 Sep, [place] [id number] [place] [address] 10188- 3830 Aug, [place] [id number] [place] [address] 57377- 9082 Aug, Dorsalgia, unspecified M54.9 ; Other chronic pain G89.29 ; Depression, unspecified depression type F32.9 and Chronic atrial fibrillation I48.2 [place] [address] [place] [address] 76335- 8008 Aug, Other bipolar disorder F31.89 and Unspecified symptoms and signs involving cognitive functions and awareness R41.9 [place] [address] [address] Aug, Dental examination Z01.20 [place] [id number] [place] [address] 99990- 4189 Aug, [place] [address] [address] Aug, Other bipolar disorder F31.89 [place] [id number] [place] [address] 38783- 5089 Aug, [place] [address] [place] [address] 95641- 5968 July, [place] [id number] [place] [address] 67402- 1424 July, [facility] [address] [facility] [id number] [place] [address] July, Other bipolar disorder F31.89 [facility] [address] [facility] [id number], [place] [address] July, Other bipolar disorder F31.89 and Unspecified symptoms and signs involving cognitive functions and awareness R41.9 [facility] [address] [facility] [id number], [place] [address] July, Establishing care with new doctor, encounter for Z71.89 ; Bianca F30.9 ; Essential hypertension I10 and Hyperlipidemia, unspecified hyperlipidemia type E78.5 IMMUNIZATIONS No Known Immunizations SOCIAL HISTORY Never Assessed REASON FOR VISIT Lab (walk-in) PLAN OF CARE VITAL SIGNS MEDICATIONS Unknown Medications RESULTS No Results PROCEDURES Procedure Date Ordered Result Body Site LAB NOT BILLED BY [facility] August 14, 2017 VENIPUNCT, ROUTINE* August 14, 2017 INSTRUCTIONS MEDICATIONS ADMINISTERED No Known Medications [...] History tubal ligation Hospitalization History Hospitalization History [facility]
--- OUTSIDE RECORDS SUMMARY | 2017-12-29 10:05 | XMS REPORT ---
Author Author TINO GRESHAM [facility] Address [address] [place] [address] Care Team Providers Care Mri Manager Name Role Phone TINO GRESHAM Unavailable PROBLEMS Type Condition ICD9-CM Code YSO01-YH Code Onset Dates Condition Status SNOMED Code Problem Hyperlipidemia, unspecified hyperlipidemia type E78.5 Active 90732921 Problem PAF (paroxysmal atrial fibrillation) I48.0 Active 445923997 Problem Atrial fibrillation, unspecified type I48.91 Active 99248519 Problem Abnormal laboratory test result R89.9 Active 022960577 Problem Anxiety F41.9 Active 47984703 Problem Essential hypertension I10 Active 81353989 Problem Sleep apnea in adult G47.33 Active 86600145 Problem Sleep apnea in adult G47.30 Active 76436080 Problem Psychophysiological insomnia F51.04 Active 443421946 Problem Hypertriglyceridemia E78.1 Active 655558301 Problem Other bipolar disorder F31.89 Active 57450245 Problem Microcytic anemia D50.9 Active 343371383 Problem Chronic atrial fibrillation I48.2 Active 514888970 Problem Other chronic pain G89.29 Active 16588943 Problem Unspecified symptoms and signs involving cognitive functions and awareness R41.9 Active 776268745 Problem Depression, unspecified depression type F32.9 Active 31123005 Problem Dorsalgia, unspecified M54.9 Active 926946672 Problem Hypothyroidism, unspecified type E03.9 Active 81062908 ALLERGIES No Information ENCOUNTERS Encounter Location Date Diagnosis [facility] [address] [facility] [id number] [address] Feb, [facility] [address] [id number], [place] [address] 13 Aug, 2017 PAF (paroxysmal atrial fibrillation) I48.0 ; Hyperlipidemia , unspecified hyperlipidemia type E78.5 ; Essential hypertension I10 and Sleep apnea in adult G47.30 [facility] [id number] [place] [address]38- [address]40 July, Hypertriglyceridemia E78.1 and Abnormal laboratory test result R89.9 [place] [id number] [place] [address] 93695- 7017 July, Chronic atrial fibrillation I48.2 and Hypothyroidism, unspecified type E03.9 [place] [address] [address]- 1849 July, Sleep apnea in adult G47.33 ; Chronic atrial fibrillation I48.2 ; Depression, unspecified depression type F32.9 ; Essential hypertension I10 ; Hypothyroidism, unspecified type E03.9 ; Encounter for screening mammogram for breast cancer Z12.31 and Anxiety F41.9 [place] [address] 7[address]- 3219 Jun, [facility] [address] [address] 09 May, 2017 Acute nasopharyngitis J00 [place] [address] 54885- 7152 Jan, Medicare annual wellness visit, initial Z00.00 and Encounter for immunization Z23 [place] [id number] [place] [address] 36062- 8352 20 Nov, 2016 [place] [address] 36216- 0333 Nov, Sebaceous cyst L72.3 [place] [address] 19865- 8308 Oct, Other eczema L30.8 [place] [address] 58678- 0066 Sep, Hyperlipidemia, unspecified hyperlipidemia type E78.5 and Sleep apnea in adult G47.33 [place] [address] 56668- 0865 Sep, PAF (paroxysmal atrial fibrillation) I48.0 ; Hyperlipidemia , unspecified hyperlipidemia type E78.5 ; Sleep apnea in adult G47.33 and Essential hypertension I10 [facility] [id number] [place] [address] 79548- 3129 Aug, Hypothyroidism, unspecified type E03.9 ; PAF (paroxysmal atrial fibrillation) I48.0 ; Hyperlipidemia, unspecified hyperlipidemia type E78.5 ; Sleep apnea in adult G47.33 and Essential hypertension I10 [facility] [id number] [place] [address] 59229- 3002 Jun, PAF (paroxysmal atrial fibrillation) I48.0 ; Hyperlipidemia , unspecified hyperlipidemia type E78.5 ; Sleep apnea in adult G47.33 and Essential hypertension I10 [place] [id number] [place] [address] 53599- 6064 Jun, PAF (paroxysmal atrial fibrillation) I48.0 ; Hyperlipidemia , unspecified hyperlipidemia type E78.5 ; Sleep apnea in adult G47.33 and Essential hypertension I10 [place] [id number] [place] [address] 47301- 1258 Jun, Breast cancer screening Z12.39 ; Yeast vaginitis B37.3 ; Sleep apnea in adult G47.30 and Encounter for immunization Z23 [place] [id number] [place] [address] 71508- 5113 May, Hypothyroidism, unspecified type E03.9 [place] [id number] [place] [address] 07164- 3653 May, Hypothyroidism, unspecified type E03.9 [place] [id number] [place] [address] 23980- 2731 May, Hypothyroidism, unspecified type E03.9 [place] [id number] [place] [address] 19272- 2901 May, [place] [id number] [place] [address] 95353- 7378 May, Other bipolar disorder F31.89 [place] [id number] [place] [address] 04414- 4563 May, Other bipolar disorder F31.89 [place] [id number] [place] [address] 56692- 9434 Mar, PAF (paroxysmal atrial fibrillation) I48.0 ; Essential hypertension I10 ; Hyperlipidemia, unspecified hyperlipidemia type E78.5 and Sleep apnea in adult G47.33 [place] [address] 47548- 8829 Mar, Depression, unspecified depression type F32.9 ; Sleep apnea in adult G47.33 and Psychophysiological insomnia F51.04 [place] [id number] [place] [address] 88342- 1905 Feb, [place] [address] 30454- 9040 Feb, [place] [address] 96472- 7808 Jan, Other bipolar disorder F31.89 ; Polyp of colon, unspecified part of colon, unspecified type K63.5 and Left hip pain M25.552 [place] [id number] [place] [address] 58378- 9097 Jan, [place] [id number] [place] [address] 14367- 0772 Jan, PAF (paroxysmal atrial fibrillation) I48.0 ; Palpitations R00.2 ; Pain in right leg M79.604 ; Pain of left leg M79.605 ; Sleep apnea in adult G47.33 ; Hypothyroidism, unspecified type E03.9 and Hyperlipidemia, unspecified hyperlipidemia type E78.5 [place] [id number] [place] [address] 26577- 5797 Dec, [place] [id number] [place] [address] 46526- 2545 Oct, Chronic atrial fibrillation I48.2 [facility] [address], [place] [address]- 0158 Oct, Chronic atrial fibrillation I48.2 [place] [address] [place] [address] 28361- 5422 Oct, Depression, unspecified depression type F32.9 ; Chronic atrial fibrillation I48.2 ; Other chronic pain G89.29 and Hyperlipidemia, unspecified hyperlipidemia type E78.5 [place] [id number] [place] [address] 82301- 2634 Sep, [place] [id number] [place] [address] 57313- 4507 Aug, [place] [id number] [place] [address] 28363- 0744 Aug, Dorsalgia, unspecified M54.9 ; Other chronic pain G89.29 ; Depression, unspecified depression type F32.9 and Chronic atrial fibrillation I48.2 [place] [address] [place] [address] 03138- 5932 Aug, Other bipolar disorder F31.89 and Unspecified symptoms and signs involving cognitive functions and awareness R41.9 [place] [address], [place] [address]- 8331 Aug, Dental examination Z01.20 [place] [id number] [place] [address] 73950- 4284 Aug, [place] [address], [place] [address]- 3165 Aug, Other bipolar disorder F31.89 [place] [id number] [place] [address] 93833- 0776 Aug, [place] [address] [place] [address] 78708- 7806 July, [place] [id number] [place] [address] 43292- 0285 July, [facility] [address] [facility] [id number] [place] [address]- 1470 July, Other bipolar disorder F31.89 [facility] [address] [facility] [id number], [place] [address]- 1790 July, Other bipolar disorder F31.89 and Unspecified symptoms and signs involving cognitive functions and awareness R41.9 [facility] [address] [facility] [id number] [place] [address]- 2009 July, Establishing care with new doctor, encounter for Z71.89 ; Bianca F30.9 ; Essential hypertension I10 and Hyperlipidemia, unspecified hyperlipidemia type E78.5 IMMUNIZATIONS No Known Immunizations SOCIAL HISTORY Never Assessed REASON FOR VISIT Orders from Results PLAN OF CARE VITAL SIGNS MEDICATIONS Unknown [...] History tubal ligation Hospitalization History Hospitalization History [facility]
--- OUTSIDE RECORDS SUMMARY | 2017-12-29 10:05 | XMS REPORT ---
Author Author TINO GRESHAM [facility] Address [address] [place] [address] Care Team Providers Care Rotary Furnace Operator Name Role Phone TINO GRESHAM Unavailable PROBLEMS Type Condition ICD9-CM Code LFK77-DQ Code Onset Dates Condition Status SNOMED Code Problem Hyperlipidemia, unspecified hyperlipidemia type E78.5 Active 58299311 Problem PAF (paroxysmal atrial fibrillation) I48.0 Active 342110501 Problem Atrial fibrillation, unspecified type I48.91 Active 49666407 Problem Abnormal laboratory test result R89.9 Active 699651984 Problem Anxiety F41.9 Active 18105805 Problem Essential hypertension I10 Active 87078285 Problem Sleep apnea in adult G47.33 Active 18676719 Problem Sleep apnea in adult G47.30 Active 90775999 Problem Psychophysiological insomnia F51.04 Active 743579110 Problem Hypertriglyceridemia E78.1 Active 247789792 Problem Other bipolar disorder F31.89 Active 74548600 Problem Microcytic anemia D50.9 Active 208223249 Problem Chronic atrial fibrillation I48.2 Active 953198674 Problem Other chronic pain G89.29 Active 12413017 Problem Unspecified symptoms and signs involving cognitive functions and awareness R41.9 Active 891812585 Problem Depression, unspecified depression type F32.9 Active 38993277 Problem Dorsalgia, unspecified M54.9 Active 069420642 Problem Hypothyroidism, unspecified type E03.9 Active 41342907 ALLERGIES No Known Allergies ENCOUNTERS Encounter Location Date Diagnosis [facility] [address] [facility] [id number] [address] Feb, [facility] [address] [id number] [address] 13 Aug, 2017 PAF (paroxysmal atrial fibrillation) I48.0 ; Hyperlipidemia , unspecified hyperlipidemia type E78.5 ; Essential hypertension I10 and Sleep apnea in adult G47.30 [facility] [id number] [place] [address]020[address] 85[address] July, Hypertriglyceridemia E78.1 and Abnormal laboratory test result R89.9 [place] [address] [address] July, Chronic atrial fibrillation I48.2 and Hypothyroidism, unspecified type E03.9 [place] [address] [address] July, Sleep apnea in adult G47.33 ; Chronic atrial fibrillation I48.2 ; Depression, unspecified depression type F32.9 ; Essential hypertension I10 ; Hypothyroidism, unspecified type E03.9 ; Encounter for screening mammogram for breast cancer Z12.31 and Anxiety F41.9 [place] [address] [address] Jun, [facility] [address] [address] 09 May, 2017 Acute nasopharyngitis J00 [place] [address] [address] Jan, Medicare annual wellness visit, initial Z00.00 and Encounter for immunization Z23 [place] [address] [address] 20 Nov, 2016 [place] [address] [address] Nov, Sebaceous cyst L72.3 [place] [address] [address] Oct, Other eczema L30.8 [place] [address] [address] Sep, Hyperlipidemia, unspecified hyperlipidemia type E78.5 and Sleep apnea in adult G47.33 [place] [address] [address] Sep, PAF (paroxysmal atrial fibrillation) I48.0 ; Hyperlipidemia , unspecified hyperlipidemia type E78.5 ; Sleep apnea in adult G47.33 and Essential hypertension I10 [facility] [id number] [place] [address] 64677- 6651 Aug, Hypothyroidism, unspecified type E03.9 ; PAF (paroxysmal atrial fibrillation) I48.0 ; Hyperlipidemia, unspecified hyperlipidemia type E78.5 ; Sleep apnea in adult G47.33 and Essential hypertension I10 [facility] [id number] [place] [address] 09129- 8934 Jun, PAF (paroxysmal atrial fibrillation) I48.0 ; Hyperlipidemia , unspecified hyperlipidemia type E78.5 ; Sleep apnea in adult G47.33 and Essential hypertension I10 [facility] [id number] [place] [address] 11974- 2888 Jun, PAF (paroxysmal atrial fibrillation) I48.0 ; Hyperlipidemia , unspecified hyperlipidemia type E78.5 ; Sleep apnea in adult G47.33 and Essential hypertension I10 [facility] [id number] [place] [address] 96291- 6745 Jun, Breast cancer screening Z12.39 ; Yeast vaginitis B37.3 ; Sleep apnea in adult G47.30 and Encounter for immunization Z23 [place] [id number] [place] [address] 61650- 1761 May, Hypothyroidism, unspecified type E03.9 [place] [id number] [place] [address] 68313- 2485 May, Hypothyroidism, unspecified type E03.9 [place] [id number] [place] [address] 46051- 2708 May, Hypothyroidism, unspecified type E03.9 [facility] [id number] [place] [address] 72977- 9223 May, [place] [id number] [place] [address] 50001- 6798 May, Other bipolar disorder F31.89 [place] [address] [place] [address] 73506- 7680 15 May, 2016 Other bipolar disorder F31.89 [place] [id number] [place] [address] 27574- 4735 Mar, PAF (paroxysmal atrial fibrillation) I48.0 ; Essential hypertension I10 ; Hyperlipidemia, unspecified hyperlipidemia type E78.5 and Sleep apnea in adult G47.33 [place] [id number] [place] [address] 68419- 0500 Mar, Depression, unspecified depression type F32.9 ; Sleep apnea in adult G47.33 and Psychophysiological insomnia F51.04 [place] [id number] [place] [address] 43241- 6809 Feb, [place] [id number] [place] [address] 45578- 6244 Feb, [place] [id number] [place] [address] 57749- 4379 Jan, Other bipolar disorder F31.89 ; Polyp of colon, unspecified part of colon, unspecified type K63.5 and Left hip pain M25.552 [place] [id number] [place] [address] 12396- 8756 Jan, [place] [id number] [place] [address] 32490- 3848 Jan, PAF (paroxysmal atrial fibrillation) I48.0 ; Palpitations R00.2 ; Pain in right leg M79.604 ; Pain of left leg M79.605 ; Sleep apnea in adult G47.33 ; Hypothyroidism, unspecified type E03.9 and Hyperlipidemia, unspecified hyperlipidemia type E78.5 [place] [id number] [place] [address] 05229- 6440 Dec, [place] [id number] [place] [address] 94621- 0989 Oct, Chronic atrial fibrillation I48.2 [facility] [address], [place] [address] Oct, Chronic atrial fibrillation I48.2 [facility] [address] [place] [address] 65370- 8078 Oct, Depression, unspecified depression type F32.9 ; Chronic atrial fibrillation I48.2 ; Other chronic pain G89.29 and Hyperlipidemia, unspecified hyperlipidemia type E78.5 [place] [id number] [place] [address] 43773- 3728 Sep, [place] [id number] [place] [address] 93691- 8266 Aug, [place] [id number] [place] [address] 16587- 9900 Aug, Dorsalgia, unspecified M54.9 ; Other chronic pain G89.29 ; Depression, unspecified depression type F32.9 and Chronic atrial fibrillation I48.2 [place] [address] [address] Aug, Other bipolar disorder F31.89 and Unspecified symptoms and signs involving cognitive functions and awareness R41.9 [place] [address], [place] [address] Aug, Dental examination Z01.20 [place] [id number] [address] Aug, [place] [address] [place] [address] 98901- 0049 Aug, Other bipolar disorder F31.89 [place] [address] [id number] [address] Aug, [place] [address] [place] [address] 12736- 5743 July, [place] [id number] [place] [address] 43043- [address]65 July, [facility] [address] [facility] [id number] [address] July, Other bipolar disorder F31.89 [place] [address] [facility] [id number], [place] [address] July, Other bipolar disorder F31.89 and Unspecified symptoms and signs involving cognitive functions and awareness R41.9 [place] [address] [facility] [id number], [place] [address] July, Establishing care with new doctor, encounter for Z71.89 ; Bianca F30.9 ; Essential hypertension I10 and Hyperlipidemia, unspecified hyperlipidemia type E78.5 IMMUNIZATIONS No Known Immunizations SOCIAL HISTORY Never Assessed REASON FOR VISIT Blood pressure/eczema WB-MA PLAN OF CARE Activity Details Follow Up 6 Months Reason:anxiety VITAL SIGNS Height 66.0 in 2017-08-13 Weight 132.5 lbs 2017-08-13 Temperature 98.0 degrees Fahrenheit 2017-08-13 Heart Rate 68 bpm 2017-08-13 Respiratory Rate 20 2017-08-13 BMI 21.38 kg/m2 2017-08-13 Blood pressure systolic 114 mmHg 2017-08-13 Blood pressure diastolic 74 mmHg 2017-08-13 MEDICATIONS Medication Instructions Dosage Frequency Start Date End Date Duration Status Fluoxetine HCl 40 MG TAKE ONE CAPSULE BY MOUTH ONCE DAILY IN THE MORNING 90 Active Calcium 200 mg Orally Twice a day 1 tablet 12h Active Depakote ER 250 MG Orally Once a day 1 tablet at bedtime 24h 90 Active Prilosec 40 mg Orally Once a day 1 capsule 24h 30 Active Lorazepam 0.5 MG Orally Once a day as needed 1 tablet as needed July, Active Zocor 40 mg Orally Once a day 1 tablet in the evening 24h 90 Active Aspirin Adult Low Dose 81 MG Orally Once a day 1 tablet 24h Active Triamcinolone Acetonide 0.5 % Externally Twice a day for 10 days and then prn. Apply Desitin over the triamcinolone 1 application to affected area Oct, Not-Taking Fish Oil 1200 MG Orally twice a day 2 capsules 12h Active Multivitamin Adult Active Flecainide Acetate 100 MG Orally 2 times a day 1 tablet 12h 90 Active Naproxen 500 MG TAKE ONE TABLET BY MOUTH EVERY 12 HOURS NEEDED FOR BACK PAIN 90 Active Levothyroxine Sodium 100 MCG Orally Once a day 1 tablet 24h 90 Active Prozac 40 mg Orally Once a day 1 capsule in the morning 24h 30 Active Lisinopril 40 mg Orally Once a day 1 tablet 24h 90 Active Eliquis 5 MG Orally BID 1 tablet 12h Active RESULTS Name Result Date Reference Range Mammogram, Bilateral Screening 2017-08-18 PROCEDURES Procedure Date Ordered Result Body Site [facility] VISIT ESTABLISHED PATIENT August 13, 2017 INSTRUCTIONS MEDICATIONS ADMINISTERED No Known Medications [...] History tubal ligation Hospitalization History Hospitalization History [facility]
--- OUTSIDE RECORDS SUMMARY | 2017-12-29 10:05 | XMS REPORT ---
Author Author TINO GRESHAM Organization [facility] Address [address] [place] [address] Care Team Providers Care Attorney General Name Role Phone TINO GRESHAM Unavailable PROBLEMS Type Condition ICD9-CM Code KIT69-MM Code Onset Dates Condition Status SNOMED Code Problem Depression, unspecified depression type F32.9 Active 86825251 Problem Hyperlipidemia, unspecified hyperlipidemia type E78.5 Active 26422813 Problem Hypothyroidism, unspecified type E03.9 Active 30965808 Problem Sleep apnea in adult G47.30 Active 81976715 Problem Psychophysiological insomnia F51.04 Active 987382507 Problem PAF (paroxysmal atrial fibrillation) I48.0 Active 906327063 Problem Atrial fibrillation, unspecified type I48.91 Active 54805529 Problem Essential hypertension I10 Active 47239111 Problem Sleep apnea in adult G47.33 Active 62668681 Problem Unspecified symptoms and signs involving cognitive functions and awareness R41.9 Active 988694673 Problem Dorsalgia, unspecified M54.9 Active 301268696 Problem Chronic atrial fibrillation I48.2 Active 538661370 Problem Other bipolar disorder F31.89 Active 97071720 Problem Other chronic pain G89.29 Active 85114346 ALLERGIES No Information ENCOUNTERS Encounter Location Date Diagnosis [facility] [address] [id number], [place] [address] July, [facility] [address], [place] [address] Jun, [facility] [address] [place] [address] 09 May, 2017 Acute nasopharyngitis J00 [facility] [address] [id number], [place] [address] Jan, Medicare annual wellness visit, initial Z00.00 and Encounter for immunization Z23 [place] [id number] [place] [address] 36154- 4701 20 Nov, 2016 [place] [address] [id number] [place] [address] 94191- 7274 13 Nov, 2016 Sebaceous cyst L72.3 [place] [address] 23487- 6749 Oct, Other eczema L30.8 [place] [address] 16992- 1927 Sep, Hyperlipidemia, unspecified hyperlipidemia type E78.5 and Sleep apnea in adult G47.33 [place] [address] [address]28- 0973 Sep, PAF (paroxysmal atrial fibrillation) I48.0 ; Hyperlipidemia , unspecified hyperlipidemia type E78.5 ; Sleep apnea in adult G47.33 and Essential hypertension I10 [place] [id number] [place] [address] 93235- 0664 Aug, Hypothyroidism, unspecified type E03.9 ; PAF (paroxysmal atrial fibrillation) I48.0 ; Hyperlipidemia, unspecified hyperlipidemia type E78.5 ; Sleep apnea in adult G47.33 and Essential hypertension I10 [place] [address] [id number] [place] [address] 30757- 5818 Jun, PAF (paroxysmal atrial fibrillation) I48.0 ; Hyperlipidemia , unspecified hyperlipidemia type E78.5 ; Sleep apnea in adult G47.33 and Essential hypertension I10 [place] [address] [place] [address] 21653- 4737 Jun, PAF (paroxysmal atrial fibrillation) I48.0 ; Hyperlipidemia , unspecified hyperlipidemia type E78.5 ; Sleep apnea in adult G47.33 and Essential hypertension I10 [place] [address] [place] [address] 87195- 5011 Jun, Breast cancer screening Z12.39 ; Yeast vaginitis B37.3 ; Sleep apnea in adult G47.30 and Encounter for immunization Z23 [facility] [address] [place] [address] 25213- 5011 May, Hypothyroidism, unspecified type E03.9 [facility] [id number] [place] [address] 04422- 7572 May, Hypothyroidism, unspecified type E03.9 [place] [address] [id number] [place] [address] 80123- 4739 May, Hypothyroidism, unspecified type E03.9 [place] [address] [id number] [place] [address] 77748- 7950 May, [place] [address] [id number] [place] [address] 68821- 1226 May, Other bipolar disorder F31.89 [place] [address] [id number] [place] [address] 32363- 6735 May, Other bipolar disorder F31.89 [place] [address] [id number] [place] [address] 53627- 9966 Mar, PAF (paroxysmal atrial fibrillation) I48.0 ; Essential hypertension I10 ; Hyperlipidemia, unspecified hyperlipidemia type E78.5 and Sleep apnea in adult G47.33 [place] [address] [place] [address] 69833- 3013 Mar, Depression, unspecified depression type F32.9 ; Sleep apnea in adult G47.33 and Psychophysiological insomnia F51.04 [place] [address], [place] [address]- 18[address] Feb, [place] [address] [id number] [place] [address] 04500- 2784 Feb, [place] [address] [id number] [place] [address] 16915- 0975 Jan, Other bipolar disorder F31.89 ; Polyp of colon, unspecified part of colon, unspecified type K63.5 and Left hip pain M25.552 [place] [address], [place] [address]- 30[address] Jan, [place] [id number] [place] [address] 62134- 8446 Jan, PAF (paroxysmal atrial fibrillation) I48.0 ; Palpitations R00.2 ; Pain in right leg M79.604 ; Pain of left leg M79.605 ; Sleep apnea in adult G47.33 ; Hypothyroidism, unspecified type E03.9 and Hyperlipidemia, unspecified hyperlipidemia type E78.5 [place] [address] [id number] [place] [address] 91789- 0030 Dec, [place] [address] [id number] [place] [address] 99667- 8483 Oct, Chronic atrial fibrillation I48.2 [place] [id number] [place] [address] 03629- 9377 Oct, Chronic atrial fibrillation I48.2 [place] [id number] [place] [address] 85878- 4694 Oct, Depression, unspecified depression type F32.9 ; Chronic atrial fibrillation I48.2 ; Other chronic pain G89.29 and Hyperlipidemia, unspecified hyperlipidemia type E78.5 [place] [address], [place] [address]- [address] Sep, [address], [place] [address]- 8[address] Aug, [place] [address] [place] [address] 90884- 6068 Aug, Dorsalgia, unspecified M54.9 ; Other chronic pain G89.29 ; Depression, unspecified depression type F32.9 and Chronic atrial fibrillation I48.2 [place] [address], [place] [address]- 8316 14 Aug, 2015 Other bipolar disorder F31.89 and Unspecified symptoms and signs involving cognitive functions and awareness R41.[address] [id number] [address] Aug, Dental examination Z01.20 [place] [address] [id number] [place] [address] 38284- 1551 Aug, [place] [address] [id number] [place] [address] 42900- 4555 Aug, Other bipolar disorder F31.89 [place] [address] [id number] [place] [address] 29071- 1434 Aug, [place] [address] [id number] [place] [address] 52858- 0208 July, [place] [address] [id number] [place] [address] 24649- 8296 July, [place] [address] [id number] [place] [address] 08919- 7723 July, Other bipolar disorder F31.89 [place] [address] [id number] [place] [address] 26453- 2389 July, Other bipolar disorder F31.89 and Unspecified symptoms and signs involving cognitive functions and awareness R41.9 [place] [address] [place] [address] 76255- 1986 July, Establishing care with new doctor, encounter for Z71.89 ; Bianca F30.9 ; Essential hypertension I10 and Hyperlipidemia, unspecified hyperlipidemia type E78.5 IMMUNIZATIONS No Known Immunizations SOCIAL HISTORY Never Assessed REASON FOR VISIT Suture removal [facility] PLAN OF CARE VITAL SIGNS MEDICATIONS Unknown [...] History tubal ligation Hospitalization History Hospitalization History [facility]
--- OUTSIDE RECORDS SUMMARY | 2017-12-29 10:06 | XMS REPORT ---
Author Author ALMA BAR [facility] Address [address] [id number] Care Team Providers Care School Age Teacher Name Role Phone ALMA BAR Unavailable PROBLEMS Type Condition ICD9-CM Code NZN84-YQ Code Onset Dates Condition Status SNOMED Code Problem Dorsalgia, unspecified M54.9 Active 625949135 Problem Hypothyroidism, unspecified type E03.9 Active 98568586 Problem Hyperlipidemia, unspecified hyperlipidemia type E78.5 Active 91914459 Problem Sleep apnea in adult G47.30 Active 76025159 Problem Psychophysiological insomnia F51.04 Active 806514969 Problem PAF (paroxysmal atrial fibrillation) I48.0 Active 091988617 Problem Sleep apnea in adult G47.33 Active 06366109 Problem Essential hypertension I10 Active 08278243 Problem Atrial fibrillation, unspecified type I48.91 Active 93610481 Problem Other bipolar disorder F31.89 Active 81852459 Problem Chronic atrial fibrillation I48.2 Active 874946103 Problem Depression, unspecified depression type F32.9 Active 24621688 Problem Unspecified symptoms and signs involving cognitive functions and awareness R41.9 Active 934453476 Problem Other chronic pain G89.29 Active 12558312 ALLERGIES Unknown Allergies SOCIAL HISTORY No smoking Hx information available PLAN OF CARE VITAL SIGNS MEDICATIONS Unknown Medications RESULTS No Results PROCEDURES No Known procedures IMMUNIZATIONS No Known Immunizations
--- OUTSIDE RECORDS SUMMARY | 2017-12-29 10:06 | XMS REPORT ---
Author Author TINO GRESHAM [facility] Address [address] [place] [address] Care Team Providers Care Ski Lift Attendant Name Role Phone TINO GRESHAM Unavailable PROBLEMS Type Condition ICD9-CM Code IQU61-HW Code Onset Dates Condition Status SNOMED Code Problem Depression, unspecified depression type F32.9 Active 00492839 Problem Hyperlipidemia, unspecified hyperlipidemia type E78.5 Active 94229010 Problem Hypothyroidism, unspecified type E03.9 Active 32569226 Problem Sleep apnea in adult G47.30 Active 40572511 Problem Psychophysiological insomnia F51.04 Active 552019241 Problem PAF (paroxysmal atrial fibrillation) I48.0 Active 978940337 Problem Atrial fibrillation, unspecified type I48.91 Active 58586568 Problem Essential hypertension I10 Active 11649629 Problem Sleep apnea in adult G47.33 Active 84349075 Problem Unspecified symptoms and signs involving cognitive functions and awareness R41.9 Active 676801443 Problem Dorsalgia, unspecified M54.9 Active 215602024 Problem Chronic atrial fibrillation I48.2 Active 026290359 Problem Other bipolar disorder F31.89 Active 57268670 Problem Other chronic pain G89.29 Active 75871040 ALLERGIES Substance Reaction Event Type Date Status N.K.D.A. Unknown Non Drug Allergy Mar, Unknown SOCIAL HISTORY No smoking Hx information available PLAN OF CARE Activity Details Follow Up 6 Months Reason:depression VITAL SIGNS Height 66.0 in 2016-04-03 Weight 135 lbs 2016-04-03 Temperature 98.6 degrees Fahrenheit 2016-04-03 Heart Rate 68 bpm 2016-04-03 Respiratory Rate 16 2016-04-03 BMI 21.79 kg/m2 2016-04-03 Blood pressure systolic 100 mmHg 2016-04-03 Blood pressure diastolic 80 mmHg 2016-04-03 MEDICATIONS Medication Instructions Dosage Frequency Start Date End Date Duration Status Levothyroxine Sodium 125 mcg Orally Once a day 1 tablet 24h 30 Active Prozac 40 mg Orally Once a day 1 capsule in the morning 24h 90 days Active Prilosec 40 mg Orally Once a day 1 capsule 24h Active Fish Oil 1200 MG Orally twice a day 2 capsules 12h Active Zocor 40 mg Orally Once a day 1 tablet in the evening 24h Oct, Active Multivitamin Adult Active Lisinopril 40 mg Orally Once a day 1 tablet 24h 30 days Active Depakote ER 250 MG Orally Once a day 1 tablet at bedtime 24h 90 days Active Naproxen 500 MG Orally every 12 hrs for back pain 1 tablet as needed Aug, Active Flecainide Acetate 100 MG Orally 2 times a day 1 tablet 12h Active Calcium 200 mg Orally Twice a day 1 tablet 12h Active RESULTS No Results PROCEDURES Procedure Date Ordered Related Diagnosis Body Site [facility] VISIT ESTABLISHED PATIENT Apr 03, 2016 Office Visit, Est Pt., Level 3 Apr 03, 2016 IMMUNIZATIONS No Known Immunizations
--- OUTSIDE RECORDS SUMMARY | 2017-12-29 10:06 | XMS REPORT ---
Author Author TINO GRESHAM Organization [facility] Address [address] [place] [address] Care Team Providers Care Field Artillery Senior Sergeant Name Role Phone TINO GRESHAM Unavailable PROBLEMS Type Condition ICD9-CM Code VOI15-DI Code Onset Dates Condition Status SNOMED Code Problem Depression, unspecified depression type F32.9 Active 67006564 Problem Hyperlipidemia, unspecified hyperlipidemia type E78.5 Active 31616753 Problem Hypothyroidism, unspecified type E03.9 Active 92805111 Problem Sleep apnea in adult G47.30 Active 40100466 Problem Psychophysiological insomnia F51.04 Active 384995008 Problem PAF (paroxysmal atrial fibrillation) I48.0 Active 605212205 Problem Atrial fibrillation, unspecified type I48.91 Active 51923721 Problem Essential hypertension I10 Active 94568569 Problem Sleep apnea in adult G47.33 Active 26772840 Problem Unspecified symptoms and signs involving cognitive functions and awareness R41.9 Active 980998297 Problem Dorsalgia, unspecified M54.9 Active 930880763 Problem Chronic atrial fibrillation I48.2 Active 513239324 Problem Other bipolar disorder F31.89 Active 00765954 Problem Other chronic pain G89.29 Active 35803150 ALLERGIES No Known Allergies ENCOUNTERS Encounter Location Date Diagnosis [facility] [id number] [address] July, [facility] [id number] [address] Jun, [facility] [address] [address] May, Acute nasopharyngitis J00 [facility] [id number] [address] Jan, Medicare annual wellness visit, initial Z00.00 and Encounter for immunization Z23 [address] [place] [address]491[address] Nov, [place] [address] [address] [address] Nov, Sebaceous cyst L72.3 [place] [address] [address] Oct, Other eczema L30.8 [place] [address] [address] Sep, Hyperlipidemia, unspecified hyperlipidemia type E78.5 and Sleep apnea in adult G47.33 [address] [address] [address] Sep, PAF (paroxysmal atrial fibrillation) I48.0 ; Hyperlipidemia , unspecified hyperlipidemia type E78.5 ; Sleep apnea in adult G47.33 and Essential hypertension I10 [address] [id number] [place] [address] 87915- 97[address] Aug, Hypothyroidism, unspecified type E03.9 ; PAF (paroxysmal atrial fibrillation) I48.0 ; Hyperlipidemia, unspecified hyperlipidemia type E78.5 ; Sleep apnea in adult G47.33 and Essential hypertension I10 [address] [id number] [place] [address] 19487- 9979 Jun, PAF (paroxysmal atrial fibrillation) I48.0 ; Hyperlipidemia , unspecified hyperlipidemia type E78.5 ; Sleep apnea in adult G47.33 and Essential hypertension I10 [address] [address] [id number] [place] [address] 5[address]34- 9[address] Jun, PAF (paroxysmal atrial fibrillation) I48.0 ; Hyperlipidemia , unspecified hyperlipidemia type E78.5 ; Sleep apnea in adult G47.33 and Essential hypertension I10 [address] [address] [place] [address] 90343- 8221 Jun, Breast cancer screening Z12.39 ; Yeast vaginitis B37.3 ; Sleep apnea in adult G47.30 and Encounter for immunization Z23 [facility] [address] [place] [address]18- 7114 May, Hypothyroidism, unspecified type E03.9 [facility] [id number] [place] [address] 16408- 0679 May, Hypothyroidism, unspecified type E03.9 [facility] [id number] [place] [address] 49677- 7096 May, Hypothyroidism, unspecified type E03.9 [facility] [id number] [place] [address] 26665- 0081 May, [facility] [id number] [place] [address] 94091- 2668 May, Other bipolar disorder F31.89 [place] [id number] [place] [address] 40779- 9466 May, Other bipolar disorder F31.89 [facility] [id number] [place] [address] 27359- 1511 Mar, PAF (paroxysmal atrial fibrillation) I48.0 ; Essential hypertension I10 ; Hyperlipidemia, unspecified hyperlipidemia type E78.5 and Sleep apnea in adult G47.33 [address] [place] [address] 57270- 7033 Mar, Depression, unspecified depression type F32.9 ; Sleep apnea in adult G47.33 and Psychophysiological insomnia F51.04 [facility] [address] [place] [address] 24169- 1851 Feb, [place] [id number] [place] [address] 91977- 35[address] Feb, [facility] [id number] [place] [address] 31892- 3345 Jan, Other bipolar disorder F31.89 ; Polyp of colon, unspecified part of colon, unspecified type K63.5 and Left hip pain M25.552 [address] [address] Jan, [address] [id number] [place] [address] 37172- 87[address] Jan, PAF (paroxysmal atrial fibrillation) I48.0 ; Palpitations R00.2 ; Pain in right leg M79.604 ; Pain of left leg M79.605 ; Sleep apnea in adult G47.33 ; Hypothyroidism, unspecified type E03.9 and Hyperlipidemia, unspecified hyperlipidemia type E78.5 [address] [address] [address] Dec, [place] [id number] [place] [address] 71202- 0181 Oct, Chronic atrial fibrillation I48.2 [id number] [place] [address] 79628- 77[address] Oct, Chronic atrial fibrillation I48.2 [address] [id number] [place] [address] 52655- 7239 Oct, Depression, unspecified depression type F32.9 ; Chronic atrial fibrillation I48.2 ; Other chronic pain G89.29 and Hyperlipidemia, unspecified hyperlipidemia type E78.5 [address] [address] [address] Sep, [address] [address] [place] [address] 26827- 4778 Aug, [place] [id number] [place] [address] 69769- [address] Aug, Dorsalgia, unspecified M54.9 ; Other chronic pain G89.29 ; Depression, unspecified depression type F32.9 and Chronic atrial fibrillation I48.2 [address] [address] 14 Aug, 2015 Other bipolar disorder F31.89 and Unspecified symptoms and signs involving cognitive functions and awareness R41.9 [address] [address] 08 Aug, 2015 Dental examination Z01.20 [id number] [place] [address] 45350- 7524 Aug, [address] [address] [place] [address] 09043- 3563 Aug, Other bipolar disorder F31.89 [address] [id number] [place] [address] 52445- 5824 Aug, [place] [id number] [place] [address] 38763- 2567 July, [place] [id number] [place] [address] 21340- 5139 July, [place] [id number] [place] [address] 92990- 8119 July, Other bipolar disorder F31.89 [address] [address] [place] [address] 16114- 4718 July, Other bipolar disorder F31.89 and Unspecified symptoms and signs involving cognitive functions and awareness R41.9 [address] [address] [place] [address] 68388- 2605 July, Establishing care with new doctor, encounter for Z71.89 ; Bianca F30.9 ; Essential hypertension I10 and Hyperlipidemia, unspecified hyperlipidemia type E78.5 IMMUNIZATIONS No Known Immunizations SOCIAL HISTORY Never Assessed REASON FOR VISIT Bug bite that has gotten worse since the last visit that is near her groin on the left side- Yanely MORRIS PLAN OF CARE Activity Details Follow Up prn Reason: VITAL SIGNS Height 66.0 in 2016-12-11 Weight 130.0 lbs 2016-12-11 Temperature 97.8 degrees Fahrenheit 2016-12-11 Heart Rate 68 bpm 2016-12-11 Respiratory Rate 20 2016-12-11 BMI 20.98 kg/m2 2016-12-11 Blood pressure systolic 132 mmHg 2016-12-11 Blood pressure diastolic 82 mmHg 2016-12-11 MEDICATIONS Medication Instructions Dosage Frequency Start Date End Date Duration Status Prilosec 40 mg Orally Once a day 1 capsule 24h 30 Active Multivitamin Adult Active Fish Oil 1200 MG Orally twice a day 2 capsules 12h Active Lisinopril 40 mg Orally Once a day 1 tablet 24h 30 Active Zocor 40 mg Orally Once a day 1 tablet in the evening 24h 90 Active Levothyroxine Sodium 100 MCG Orally Once a day 1 tablet 24h 30 Active Calcium 200 mg Orally Twice a day 1 tablet 12h Active Eliquis 5 MG Orally BID 1 tablet 12h Active Naproxen 500 MG Orally every 12 hrs for back pain 1 tablet as needed 30 Active Flecainide Acetate 100 MG Orally 2 times a day 1 tablet 12h 30 Active Aspirin Adult Low Dose 81 MG Orally Once a day 1 tablet 24h Active Depakote ER 250 MG Orally Once a day 1 tablet at bedtime 24h 90 Active Prozac 40 mg Orally Once a day 1 capsule in the morning 24h 30 Active RESULTS No Results PROCEDURES Procedure Date Ordered Result Body Site I & D SIMPLE ABSCESS 2016-12-11 N/A DRAINAGE OF SKIN ABSCESS Dec 11, 2016 [facility] VISIT ESTABLISHED PATIENT Dec 11, 2016 INSTRUCTIONS MEDICATIONS ADMINISTERED No Known Medications MEDICAL [...]
--- OUTSIDE RECORDS SUMMARY | 2017-12-29 10:06 | XMS REPORT ---
Author Author TINO GRESHAM Organization [facility] Address [address] [place] [address] Care Team Providers Care Senior Litigation Paralegal Name Role Phone TINO GRESHAM Unavailable PROBLEMS Type Condition ICD9-CM Code XCR13-RP Code Onset Dates Condition Status SNOMED Code Problem Depression, unspecified depression type F32.9 Active 38477274 Problem Hyperlipidemia, unspecified hyperlipidemia type E78.5 Active 31843994 Problem Hypothyroidism, unspecified type E03.9 Active 29495003 Problem Sleep apnea in adult G47.30 Active 02405578 Problem Psychophysiological insomnia F51.04 Active 405792193 Problem PAF (paroxysmal atrial fibrillation) I48.0 Active 643672815 Problem Atrial fibrillation, unspecified type I48.91 Active 26257989 Problem Essential hypertension I10 Active 57496477 Problem Sleep apnea in adult G47.33 Active 11092389 Problem Unspecified symptoms and signs involving cognitive functions and awareness R41.9 Active 952560418 Problem Dorsalgia, unspecified M54.9 Active 546711320 Problem Chronic atrial fibrillation I48.2 Active 669882150 Problem Other bipolar disorder F31.89 Active 58275398 Problem Other chronic pain G89.29 Active 30871252 ALLERGIES No Information ENCOUNTERS Encounter Location Date Diagnosis [facility] [id number], [place] [address] May, 2017 Acute nasopharyngitis J00 [facility] [address] [place] [address]50- [address] Jan, Encounter for immunization Z23 and Medicare annual wellness visit, initial Z00.00 [facility] [address], [place] [address] Nov, [facility] [id number] [place] [address] 22005- 1511 Nov, Sebaceous cyst L72.3 [address] [id number] [place] [address] 24724- 8217 Oct, Other eczema L30.8 [address] [address] 24[address]- [address]01 Sep, Hyperlipidemia, unspecified hyperlipidemia type E78.5 and Sleep apnea in adult G47.33 [address] [address] [address]- [address] Sep, PAF (paroxysmal atrial fibrillation) I48.0 ; Hyperlipidemia , unspecified hyperlipidemia type E78.5 ; Sleep apnea in adult G47.33 and Essential hypertension I10 [address] 74[address]- [address] Aug, Hypothyroidism, unspecified type E03.9 ; PAF (paroxysmal atrial fibrillation) I48.0 ; Hyperlipidemia, unspecified hyperlipidemia type E78.5 ; Sleep apnea in adult G47.33 and Essential hypertension I10 [address] 40790- [address] Jun, PAF (paroxysmal atrial fibrillation) I48.0 ; Hyperlipidemia , unspecified hyperlipidemia type E78.5 ; Sleep apnea in adult G47.33 and Essential hypertension I10 [address] [id number] [place] [address] 94036- 5700 Jun, PAF (paroxysmal atrial fibrillation) I48.0 ; Hyperlipidemia , unspecified hyperlipidemia type E78.5 ; Sleep apnea in adult G47.33 and Essential hypertension I10 [address] [place] [id number] [place] [address] 89756- 3724 Jun, Breast cancer screening Z12.39 ; Yeast vaginitis B37.3 ; Sleep apnea in adult G47.30 and Encounter for immunization Z23 [address] [id number] [place] [address] 62812- 1528 May, Hypothyroidism, unspecified type E03.9 [address] [place] 23215- 2865 May, Hypothyroidism, unspecified type E03.9 [address] [place] [address] 50651- 8189 May, Hypothyroidism, unspecified type E03.9 [address] [place] [place] [address] 42625- 7622 May, [address] [id number] [place] [address] 07505- 7245 May, Other bipolar disorder F31.89 [address] [place] [address] 26409- 9889 May, Other bipolar disorder F31.89 [address] [id number] [place] [address] 72943- 0985 Mar, PAF (paroxysmal atrial fibrillation) I48.0 ; Essential hypertension I10 ; Hyperlipidemia, unspecified hyperlipidemia type E78.5 and Sleep apnea in adult G47.33 [address] [id number] [place] [address] 51148- 4737 Mar, Depression, unspecified depression type F32.9 ; Sleep apnea in adult G47.33 and Psychophysiological insomnia F51.04 [address], [place] [address] Feb, [address] [place] [place] [address] 34842- 0225 Feb, [address] [id number] [place] [address] 14855- 7160 Jan, Other bipolar disorder F31.89 ; Polyp of colon, unspecified part of colon, unspecified type K63.5 and Left hip pain M25.552 [address] [place], [place] [address] Jan, [address] [place] [address] 37569- 2362 Jan, PAF (paroxysmal atrial fibrillation) I48.0 ; Palpitations R00.2 ; Pain in right leg M79.604 ; Pain of left leg M79.605 ; Sleep apnea in adult G47.33 ; Hypothyroidism, unspecified type E03.9 and Hyperlipidemia, unspecified hyperlipidemia type E78.5 [address] [id number] [place] [address] 99682- 9247 Dec, [address] [id number] [place] [address] 20052- 9959 Oct, Chronic atrial fibrillation I48.2 [place] [id number] [place] [address] 74761- 7361 Oct, Chronic atrial fibrillation I48.2 [place] [id number] [place] [address] 47835- 6921 Oct, Depression, unspecified depression type F32.9 ; Chronic atrial fibrillation I48.2 ; Other chronic pain G89.29 and Hyperlipidemia, unspecified hyperlipidemia type E78.5 [address] [id number] [place] [address] 67102- 2508 Sep, [place] [id number] [place] [address] 62405- 2735 Aug, [place] [id number] [place] [address] 31453- 8357 Aug, Dorsalgia, unspecified M54.9 ; Other chronic pain G89.29 ; Depression, unspecified depression type F32.9 and Chronic atrial fibrillation I48.2 [address] [place] [place] [address] 42884- 4658 14 Aug, 2015 Other bipolar disorder F31.89 and Unspecified symptoms and signs involving cognitive functions and awareness R41.9 [place] [id number] [place] [address] 05413- 1021 08 Aug, 2015 Dental examination Z01.20 [place] [id number] [place] [address] 22154- 3968 Aug, [place] [id number], [place] [address]- 0[address] Aug, Other bipolar disorder F31.89 [place], [place] [address] 96[address] Aug, [place] [address] [place] [address] 45445- 9632 July, [place] [id number] [place] [address] 25455- 2072 July, [address] [place] [address] 84199- 7742 July, Other bipolar disorder F31.89 [address] [place] [address] 68561- 9269 July, Other bipolar disorder F31.89 and Unspecified symptoms and signs involving cognitive functions and awareness R41.9 [address] [place], [place] [address] July, Establishing care with new doctor, encounter for Z71.89 ; Bianca F30.9 ; Essential hypertension I10 and Hyperlipidemia, unspecified hyperlipidemia type E78.5 IMMUNIZATIONS No Known Immunizations SOCIAL HISTORY Never Assessed REASON FOR VISIT Lab (walk-in) PLAN OF CARE VITAL SIGNS MEDICATIONS No Known Medications RESULTS Name Result Date Reference Range TSH 2016-09-23 TSH 0.580 0.450-4.500 PROCEDURES Procedure Date Ordered Result Body Site LAB NOT BILLED BY [facility] September 23, 2016 [place], ROUTINE* September 23, 2016 INSTRUCTIONS MEDICATIONS ADMINISTERED No Known Medications [...] History tubal ligation Hospitalization History Hospitalization History [facility]
--- OUTSIDE RECORDS SUMMARY | 2017-12-29 10:06 | XMS REPORT ---
Author Author TINO GRESHAM Organization [facility] Address [address] [place] [address] Care Team Providers Care Pattern Vault Clerk Name Role Phone TINO GRESHAM Unavailable PROBLEMS Type Condition ICD9-CM Code MCQ67-DR Code Onset Dates Condition Status SNOMED Code Problem Depression, unspecified depression type F32.9 Active 63822809 Problem Hyperlipidemia, unspecified hyperlipidemia type E78.5 Active 96751192 Problem Hypothyroidism, unspecified type E03.9 Active 49946737 Problem Sleep apnea in adult G47.30 Active 47806573 Problem Psychophysiological insomnia F51.04 Active 344207764 Problem PAF (paroxysmal atrial fibrillation) I48.0 Active 386419110 Problem Atrial fibrillation, unspecified type I48.91 Active 72185734 Problem Essential hypertension I10 Active 50823823 Problem Sleep apnea in adult G47.33 Active 38486053 Problem Unspecified symptoms and signs involving cognitive functions and awareness R41.9 Active 920085905 Problem Dorsalgia, unspecified M54.9 Active 577147959 Problem Chronic atrial fibrillation I48.2 Active 860809316 Problem Other bipolar disorder F31.89 Active 47608520 Problem Other chronic pain G89.29 Active 89447849 ALLERGIES No Information SOCIAL HISTORY Never Assessed PLAN OF CARE VITAL SIGNS MEDICATIONS Unknown Medications RESULTS No Results PROCEDURES No Known procedures IMMUNIZATIONS No Known Immunizations MEDICAL (GENERAL) HISTORY Type Description Date Medical [...] tubal ligation Hospitalization History Hospitalization History [facility]
--- OUTSIDE RECORDS SUMMARY | 2017-12-29 10:06 | XMS REPORT ---
Author Author TINO GRESHAM [facility] e[employer] Address Unknown Phone Unavailable Care Team Providers Care Cable Repairer Name Role Phone TINO GRESHAM CP Unavailable Allergies No Known Allergies Problems Problem Type Condition Code Onset Dates Condition Status Problem Other chronic pain G89.29 Active Problem Depression, unspecified depression type F32.9 Active Problem Dorsalgia, unspecified M54.9 Active Problem Unspecified symptoms and signs involving cognitive functions and awareness R41.9 Active Problem Chronic atrial fibrillation I48.2 Active Problem Other bipolar disorder F31.89 Active Medications Medication Code System Code Instructions Start Date End Date Status Dosage Lisinopril [facility][NOTE 3] [address]-67 40 mg Orally Once a day 1 tablet Levothyroxine Sodium [facility][NOTE 3] [address]-91 125 mcg Orally Once a day 1 tablet Results No Known Results Summary Purpose eClinical[employer] Submission
--- OUTSIDE RECORDS SUMMARY | 2017-12-29 10:06 | XMS REPORT ---
Author Author TREVA HATFIELD [facility] Address [address] [place] [address] Care Team Providers Care Automation Tester Name Role Phone TREVA HATFIELD Unavailable PROBLEMS Type Condition ICD9-CM Code [id number] Code Onset Dates Condition Status SNOMED Code Problem Depression, unspecified depression type F32.9 Active 18429693 Problem Hyperlipidemia, unspecified hyperlipidemia type E78.5 Active 22618962 Problem Hypothyroidism, unspecified type E03.9 Active 71683523 Problem Sleep apnea in adult G47.30 Active 34055419 Problem Psychophysiological insomnia F51.04 Active 054763867 Problem PAF (paroxysmal atrial fibrillation) I48.0 Active 937786607 Problem Atrial fibrillation, unspecified type I48.91 Active 97748986 Problem Essential hypertension I10 Active 05402878 Problem Sleep apnea in adult G47.33 Active 81727346 Problem Unspecified symptoms and signs involving cognitive functions and awareness R41.9 Active 977970539 Problem Dorsalgia, unspecified M54.9 Active 302738551 Problem Chronic atrial fibrillation I48.2 Active 028011377 Problem Other bipolar disorder F31.89 Active 34937647 Problem Other chronic pain G89.29 Active 48615568 ALLERGIES No Known Allergies SOCIAL HISTORY Never Assessed PLAN OF CARE Activity Details Follow Up 3 Months Reason: VITAL SIGNS Height 66.0 in 2016-07-10 Weight 132 lbs 2016-07-10 Heart Rate 68 bpm 2016-07-10 Oximetry 96 % 2016-07-10 BMI 21.30 kg/m2 2016-07-10 Blood pressure systolic 118 mmHg 2016-07-10 Blood pressure diastolic 78 mmHg 2016-07-10 MEDICATIONS Medication Instructions Dosage Frequency Start Date End Date Duration Status Depakote ER 250 MG Orally Once a day 1 tablet at bedtime 24h 30 days Active Fish Oil 1200 MG Orally twice a day 2 capsules 12h Active Multivitamin Adult Active Zocor 40 mg Orally Once a day 1 tablet in the evening 24h Oct, Active Levothyroxine Sodium 100 MCG Orally Once a day 1 tablet 24h 30 Active Naproxen 500 MG Orally every 12 hrs for back pain 1 tablet as needed 30 Active Aspirin Adult Low Dose 81 MG Orally Once a day 1 tablet 24h Active Lisinopril 40 mg Orally Once a day 1 tablet 24h 30 Active Flecainide Acetate 100 MG Orally 2 times a day 1 tablet 12h 30 Active Coumadin 5 MG Orally Once a day at bedtime 1 tablet Jun, 30 day(s) Active Calcium 200 mg Orally Twice a day 1 tablet 12h Active Prozac 40 mg Orally Once a day 1 capsule in the morning 24h 30 days Active Prilosec 40 mg Orally Once a day 1 capsule 24h 30 Active RESULTS No Results PROCEDURES Procedure Date Ordered Result Body Site MEASURE BLOOD OXYGEN LEVEL July 10, 2016 [facility] VISIT ESTABLISHED PATIENT July 10, 2016 IMMUNIZATIONS No Known Immunizations MEDICAL (GENERAL) HISTORY [...] ligation Hospitalization History Hospitalization History [facility]
--- OUTSIDE RECORDS SUMMARY | 2017-12-29 10:06 | XMS REPORT ---
Author Author TINO GRESHAM [facility] Address [address] [place] [address] Care Team Providers Care Sales And Service Technician Name Role Phone TINO GRESHAM Unavailable PROBLEMS Type Condition ICD9-CM Code [id number] Code Onset Dates Condition Status SNOMED Code Problem Depression, unspecified depression type F32.9 Active 61960641 Problem Hyperlipidemia, unspecified hyperlipidemia type E78.5 Active 53263818 Problem Hypothyroidism, unspecified type E03.9 Active 80954523 Problem Sleep apnea in adult G47.30 Active 68241227 Problem Psychophysiological insomnia F51.04 Active 593308845 Problem PAF (paroxysmal atrial fibrillation) I48.0 Active 892277781 Problem Atrial fibrillation, unspecified type I48.91 Active 04459274 Problem Essential hypertension I10 Active 85878919 Problem Sleep apnea in adult G47.33 Active 86415477 Problem Unspecified symptoms and signs involving cognitive functions and awareness R41.9 Active 657975152 Problem Dorsalgia, unspecified M54.9 Active 537745075 Problem Chronic atrial fibrillation I48.2 Active 679708313 Problem Other bipolar disorder F31.89 Active 24197688 Problem Other chronic pain G89.29 Active 17272962 ALLERGIES No Information SOCIAL HISTORY Never Assessed PLAN OF CARE VITAL SIGNS MEDICATIONS Medication Instructions Dosage Frequency Start Date End Date Duration Status Prozac 40 mg Orally Once a day 1 capsule in the morning 24h 30 days Active RESULTS No Results PROCEDURES No Known procedures [...]
--- OUTSIDE RECORDS SUMMARY | 2017-12-29 10:06 | XMS REPORT ---
Author Author TINO GRESHAM [facility] Address Unknown Phone Unavailable Care Team Providers Care Strain Technician Name Role Phone TINO GRESHAM CP Unavailable Allergies No Known Allergies Problems Problem Type Condition Code Onset Dates Condition Status Problem Other chronic pain G89.29 Active Problem Depression, unspecified depression type F32.9 Active Problem Dorsalgia, unspecified M54.9 Active Problem Unspecified symptoms and signs involving cognitive functions and awareness R41.9 Active Assessment Chronic atrial fibrillation I48.2 Active Problem Chronic atrial fibrillation I48.2 Active Problem Other bipolar disorder F31.89 Active Medications No Known Medications Procedures Procedure Coding System Code Date VENIPUNCT, ROUTINE* CPT-4 00044 Nov 08, 2015 ELECTROCARDIOGRAM, TRACING CPT-4 08980 Nov 08, 2015 [facility] CPT-4 NOBLL Nov 08, 2015 Results No Known Results Summary Purpose eClinicalWorks Submission
--- NOTE | 2017-12-29 10:07 | Endo Procedure Record ---
Endo Procedure Report Date of Procedure Last Colonoscopy: Yes Dec 29, 2017 Surgeon (s) ABDOUL SMALL MD Post Procedure/Op Diagnosis EGD: Grade 2 esophagitis. Antral erosions 2 Normal colonoscopy Procedure Performed EGD with antral biopsy for H. pylori Colonoscopy to cecum Description of Procedure Anesthesia Type: Conscious Sedation Specimen(s) collected/removed antral mucosa for H. pylori Description of the Procedure Indication for the procedures: This lady came in for an upper endoscopy with concomitant colonoscopy to investigate iron deficiency anemia. In addition, she has a family history: Cancer. Informed consent was obtained after reviewing the procedures in detail. Description of procedures: EGD/antral biopsy: She was placed in left lateral rectus position and her vital signs were monitored. Conscious sedation was achieved using Versed and fentanyl. The flexible gastroscope was introduced down the esophagus, past the stomach, into the proximal duodenum. Findings: Esophagus: Grade 2 esophagitis Stomach: The total of 2 shallow erosions were found at the antrum. Biopsy for H. pylori was obtained. Duodenum: Normal She tolerated the procedure well and was turned around in preparation for colonoscopy. Impression: An deficiency anemia. Nonbleeding gastric erosions. H. pylori status pending. Colonoscopy: Examination of the perianal area revealed external hemorrhoids. Digital examination showed a lax anal sphincter.the colonoscope was then introduced in the rectum and advanced with difficulty to the cecum Redundancy of the colon made examination rather difficult. The quality of bowel preparation was excellent. The scope was then withdrawn slowly and the mucosa examined in a systematic fashion. No abnormality was found. Specifically, there was no polyp. She tolerated the procedures well and was taken back to the nursing area in a stable condition. Impression: An deficiency anemia. Normal colonoscopy. Positive family history. Recommend screening examination in 5 years. Copy Copies To 1: JAEL HAUSER XAVIER M MD Dec 29, 2017 10:07
--- OUTSIDE RECORDS SUMMARY | 2017-12-29 10:07 | XMS REPORT ---
Author Author TINO GRESHAM Organization [facility] Address [address] [place] [address] Care Team Providers Care Field Software Engineer Name Role Phone TINO GRESHAM Unavailable PROBLEMS Type Condition ICD9-CM Code DRX45-[id number] Code Onset Dates Condition Status SNOMED Code Problem Depression, unspecified depression type F32.9 Active 01922131 Problem Hyperlipidemia, unspecified hyperlipidemia type E78.5 Active 86479270 Problem Hypothyroidism, unspecified type E03.9 Active 95699161 Problem Sleep apnea in adult G47.30 Active 45387798 Problem Psychophysiological insomnia F51.04 Active 666824034 Problem PAF (paroxysmal atrial fibrillation) I48.0 Active 465063710 Problem Atrial fibrillation, unspecified type I48.91 Active 53984871 Problem Essential hypertension I10 Active 20011717 Problem Sleep apnea in adult G47.33 Active 87615996 Problem Unspecified symptoms and signs involving cognitive functions and awareness R41.9 Active 037616206 Problem Dorsalgia, unspecified M54.9 Active 807615142 Problem Chronic atrial fibrillation I48.2 Active 420937859 Problem Other bipolar disorder F31.89 Active 90407952 Problem Other chronic pain G89.29 Active 19184612 ALLERGIES No Information SOCIAL HISTORY Never Assessed [...] History tubal ligation Hospitalization History Hospitalization History [facility]
--- OUTSIDE RECORDS SUMMARY | 2017-12-29 10:07 | XMS REPORT ---
Author Author TREVA HATFIELD [facility] Address [address] [place] [address] Care Team Providers Care Land Law Examiner Name Role Phone TREVA HATFIELD Unavailable PROBLEMS Type Condition ICD9-CM Code [id number] Code Onset Dates Condition Status SNOMED Code Problem Depression, unspecified depression type F32.9 Active 76114494 Problem Hyperlipidemia, unspecified hyperlipidemia type E78.5 Active 50221380 Problem Hypothyroidism, unspecified type E03.9 Active 82157168 Problem Sleep apnea in adult G47.30 Active 86140029 Problem Psychophysiological insomnia F51.04 Active 520841035 Problem PAF (paroxysmal atrial fibrillation) I48.0 Active 744393357 Problem Atrial fibrillation, unspecified type I48.91 Active 69153873 Problem Essential hypertension I10 Active 58713204 Problem Sleep apnea in adult G47.33 Active 92305386 Problem Unspecified symptoms and signs involving cognitive functions and awareness R41.9 Active 477193570 Problem Dorsalgia, unspecified M54.9 Active 046235141 Problem Chronic atrial fibrillation I48.2 Active 543477836 Problem Other bipolar disorder F31.89 Active 57606049 Problem Other chronic pain G89.29 Active 29893039 ALLERGIES Substance Reaction Event Type Date Status N.K.D.A. Unknown Non Drug Allergy Mar, Unknown SOCIAL HISTORY No smoking Hx information available PLAN OF CARE Activity Details Follow Up 3 Months Reason: VITAL SIGNS Height 66.0 in 2016-04-10 Weight 133 lbs 2016-04-10 Heart Rate 66 bpm 2016-04-10 Respiratory Rate 18 2016-04-10 Oximetry 98 % 2016-04-10 BMI 21.46 kg/m2 2016-04-10 Blood pressure systolic 108 mmHg 2016-04-10 Blood pressure diastolic 74 mmHg 2016-04-10 MEDICATIONS Medication Instructions Dosage Frequency Start Date End Date Duration Status Depakote ER 250 MG Orally Once a day 1 tablet at bedtime 24h 90 days Active Naproxen 500 MG Orally every 12 hrs for back pain 1 tablet as needed Aug, Active Prilosec 40 mg Orally Once a day 1 capsule 24h Active Fish Oil 1200 MG Orally twice a day 2 capsules 12h Active Aspirin Adult Low Dose 81 MG Orally Once a day 1 tablet 24h Active Multivitamin Adult Active Flecainide Acetate 100 MG Orally 2 times a day 1 tablet 12h Active Lisinopril 40 mg Orally Once a day 1 tablet 24h 30 days Active Zocor 40 mg Orally Once a day 1 tablet in the evening 24h Oct, Active Calcium 200 mg Orally Twice a day 1 tablet 12h Active Levothyroxine Sodium 125 mcg Orally Once a day 1 tablet 24h 30 Active Prozac 40 mg Orally Once a day 1 capsule in the morning 24h 90 days Active RESULTS No Results PROCEDURES Procedure Date Ordered Related Diagnosis Body Site MEASURE BLOOD OXYGEN LEVEL Apr 10, 2016 [facility] VISIT ESTABLISHED PATIENT Apr 10, 2016 Office Visit, Est Pt., Level 4 Apr 10, 2016 IMMUNIZATIONS No Known Immunizations
--- OUTSIDE RECORDS SUMMARY | 2017-12-29 10:07 | XMS REPORT ---
Author Author TINO GRESHAM [facility] Address [address] [place] [address] Care Team Providers Care Medical Physiologist Name Role Phone TINO GRESHAM Unavailable PROBLEMS Type Condition ICD9-CM Code [id number] Code Onset Dates Condition Status SNOMED Code Problem Depression, unspecified depression type F32.9 Active 63410950 Problem Hyperlipidemia, unspecified hyperlipidemia type E78.5 Active 71453347 Problem Hypothyroidism, unspecified type E03.9 Active 57560175 Problem Sleep apnea in adult G47.30 Active 93604163 Problem Psychophysiological insomnia F51.04 Active 107893881 Problem PAF (paroxysmal atrial fibrillation) I48.0 Active 173028633 Problem Atrial fibrillation, unspecified type I48.91 Active 48800980 Problem Essential hypertension I10 Active 73760830 Problem Sleep apnea in adult G47.33 Active 14543642 Problem Unspecified symptoms and signs involving cognitive functions and awareness R41.9 Active 945253345 Problem Dorsalgia, unspecified M54.9 Active 891272349 Problem Chronic atrial fibrillation I48.2 Active 434165019 Problem Other bipolar disorder F31.89 Active 36016699 Problem Other chronic pain G89.29 Active 15731520 ALLERGIES No Known Allergies SOCIAL HISTORY Never Assessed PLAN OF CARE Activity Details Follow Up 6 Months Reason:Bp VITAL SIGNS Height 66.0 in 2016-07-08 Weight 132.8 lbs 2016-07-08 Temperature 98.0 degrees Fahrenheit 2016-07-08 Heart Rate 88 bpm 2016-07-08 Respiratory Rate 18 2016-07-08 BMI 21.43 kg/m2 2016-07-08 Blood pressure systolic 118 mmHg 2016-07-08 Blood pressure diastolic 68 mmHg 2016-07-08 MEDICATIONS Medication Instructions Dosage Frequency Start Date End Date Duration Status Aspirin Adult Low Dose 81 MG Orally Once a day 1 tablet 24h Active Levothyroxine Sodium 100 MCG Orally Once a day 1 tablet 24h 30 Active Calcium 200 mg Orally Twice a day 1 tablet 12h Active Flecainide Acetate 100 MG Orally 2 times a day 1 tablet 12h 30 Active Depakote ER 250 MG Orally Once a day 1 tablet at bedtime 24h 30 days Active Naproxen 500 MG Orally every 12 hrs for back pain 1 tablet as needed 30 Active Fish Oil 1200 MG Orally twice a day 2 capsules 12h Active Multivitamin Adult Active Zocor 40 mg Orally Once a day 1 tablet in the evening 24h Oct, Active Lisinopril 40 mg Orally Once a day 1 tablet 24h 30 Active Diflucan 150 MG Orally one time May repeat in 3-4 days if needed 1 tablet Jun, Active Prilosec 40 mg Orally Once a day 1 capsule 24h 30 Active Prozac 40 mg Orally Once a day 1 capsule in the morning 24h 30 days Active RESULTS Name Result Date Reference Range Mammogram, Bilateral Screening 2016-07-19 PROCEDURES Procedure Date Ordered Result Body Site [facility] VISIT ESTABLISHED PATIENT July 08, 2016 SINGLE IMMUNIZATION ADMIN July 08, 2016 ZOSTER (ZOSTAVAX) July 08, 2016 IMMUNIZATIONS Vaccine Route Administration Date Status ZOSTER (ZOSTAVAX) SC Subcutaneous July 08, 2016 Administered MEDICAL (GENERAL) HISTORY Type Description Date Medical [...] ligation Hospitalization History Hospitalization History [facility]
--- OUTSIDE RECORDS SUMMARY | 2017-12-29 10:07 | XMS REPORT ---
Author Author TINO GRESHAM [facility] Address [address] [place] [address] Care Team Providers Care Paper Winder Name Role Phone TINO GRESHAM Unavailable PROBLEMS Type Condition ICD9-CM Code PMA96-FN Code Onset Dates Condition Status SNOMED Code Problem Depression, unspecified depression type F32.9 Active 63033844 Problem Hyperlipidemia, unspecified hyperlipidemia type E78.5 Active 40888235 Problem Hypothyroidism, unspecified type E03.9 Active 36486600 Problem Sleep apnea in adult G47.30 Active 99115662 Problem Psychophysiological insomnia F51.04 Active 413113606 Problem PAF (paroxysmal atrial fibrillation) I48.0 Active 480349354 Problem Atrial fibrillation, unspecified type I48.91 Active 75716115 Problem Essential hypertension I10 Active 28119117 Problem Sleep apnea in adult G47.33 Active 43809179 Problem Unspecified symptoms and signs involving cognitive functions and awareness R41.9 Active 753553035 Problem Dorsalgia, unspecified M54.9 Active 520723801 Problem Chronic atrial fibrillation I48.2 Active 166143261 Problem Other bipolar disorder F31.89 Active 35730655 Problem Other chronic pain G89.29 Active 71547333 ALLERGIES No Information SOCIAL HISTORY Never Assessed PLAN OF CARE VITAL SIGNS MEDICATIONS Medication Instructions Dosage Frequency Start Date End Date Duration Status Depakote ER 250 MG Orally Once a day 1 tablet at bedtime 24h 30 days Active RESULTS No Results [...] History tubal ligation Hospitalization History Hospitalization History [facility]
--- OUTSIDE RECORDS SUMMARY | 2017-12-29 10:07 | XMS REPORT ---
Author Author TINO GRESHAM [facility] Address [address] [place] [address] Care Team Providers Care Rail Project Engineer Name Role Phone TINO GRESHAM Unavailable PROBLEMS Type Condition ICD9-CM Code CVF45-UP Code Onset Dates Condition Status SNOMED Code Problem Hyperlipidemia, unspecified hyperlipidemia type E78.5 Active 12391358 Problem PAF (paroxysmal atrial fibrillation) I48.0 Active 662601710 Problem Atrial fibrillation, unspecified type I48.91 Active 95303178 Problem Abnormal laboratory test result R89.9 Active 525554353 Problem Anxiety F41.9 Active 27585447 Problem Essential hypertension I10 Active 61979155 Problem Sleep apnea in adult G47.33 Active 72619851 Problem Sleep apnea in adult G47.30 Active 04713362 Problem Psychophysiological insomnia F51.04 Active 083272684 Problem Hypertriglyceridemia E78.1 Active 122161813 Problem Other bipolar disorder F31.89 Active 71367695 Problem Microcytic anemia D50.9 Active 413489698 Problem Chronic atrial fibrillation I48.2 Active 903064289 Problem Other chronic pain G89.29 Active 84017891 Problem Unspecified symptoms and signs involving cognitive functions and awareness R41.9 Active 394730049 Problem Depression, unspecified depression type F32.9 Active 61792081 Problem Dorsalgia, unspecified M54.9 Active 601201667 Problem Hypothyroidism, unspecified type E03.9 Active 16769313 ALLERGIES No Known Allergies ENCOUNTERS Encounter Location Date Diagnosis [facility] [id number], [place] [address] Aug, [facility] [id number], [place] [address] July, Hypertriglyceridemia E78.1 and Abnormal laboratory test result R89.9 [facility] [id number] [place] [address] July, Chronic atrial fibrillation I48.2 and Hypothyroidism, unspecified type E03.9 [facility] [id number] [place] [address] July, Sleep apnea in adult G47.33 ; Chronic atrial fibrillation I48.2 ; Depression, unspecified depression type F32.9 ; Essential hypertension I10 ; Hypothyroidism, unspecified type E03.9 ; Encounter for screening mammogram for breast cancer Z12.31 and Anxiety F41.9 [facility] [id number] [place] [address] Jun, [facility] [address] [address] May, Acute nasopharyngitis J00 [facility] [address] [address] Jan, Medicare annual wellness visit, initial Z00.00 and Encounter for immunization Z23 [facility] [id number] [place] [address] Nov, [facility] [address] [address] Nov, Sebaceous cyst L72.3 [facility] [id number] [place] [address] Oct, Other eczema L30.8 [facility] [id number] [place] [address] Sep, Hyperlipidemia, unspecified hyperlipidemia type E78.5 and Sleep apnea in adult G47.33 [facility] [address] [address] Sep, PAF (paroxysmal atrial fibrillation) I48.0 ; Hyperlipidemia , unspecified hyperlipidemia type E78.5 ; Sleep apnea in adult G47.33 and Essential hypertension I10 [facility] [address] [address] Aug, Hypothyroidism, unspecified type E03.9 ; PAF (paroxysmal atrial fibrillation) I48.0 ; Hyperlipidemia, unspecified hyperlipidemia type E78.5 ; Sleep apnea in adult G47.33 and Essential hypertension I10 [facility] [id number] [place] [address] Jun, PAF (paroxysmal atrial fibrillation) I48.0 ; Hyperlipidemia , unspecified hyperlipidemia type E78.5 ; Sleep apnea in adult G47.33 and Essential hypertension I10 [facility] [id number] [place] [address]87- [address] Jun, PAF (paroxysmal atrial fibrillation) I48.0 ; Hyperlipidemia , unspecified hyperlipidemia type E78.5 ; Sleep apnea in adult G47.33 and Essential hypertension I10 [facility] [id number] [place] [address] Jun, Breast cancer screening Z12.39 ; Yeast vaginitis B37.3 ; Sleep apnea in adult G47.30 and Encounter for immunization Z23 [facility] [facility] [address] [address] May, Hypothyroidism, unspecified type E03.9 [facility] [address] [address] May, Hypothyroidism, unspecified type E03.9 [facility] [id number] [place] [address]47[address] 69[address] May, Hypothyroidism, unspecified type E03.9 [facility] [id number] [place] [address] 6[address] May, [facility] [address] [address] May, Other bipolar disorder F31.89 [facility] [id number] [place] [address] May, Other bipolar disorder F31.89 [facility] [address] [address] Mar, PAF (paroxysmal atrial fibrillation) I48.0 ; Essential hypertension I10 ; Hyperlipidemia, unspecified hyperlipidemia type E78.5 and Sleep apnea in adult G47.33 [facility] [id number] [place] [address] Mar, Depression, unspecified depression type F32.9 ; Sleep apnea in adult G47.33 and Psychophysiological insomnia F51.04 [facility] [id number] [place] [address] 6[address]- [address] Feb, [facility] [id number] [place] [address] 5[address]- [address] Feb, [facility] [id number] [place] [address] 8[address]87- [address] Jan, Other bipolar disorder F31.89 ; Polyp of colon, unspecified part of colon, unspecified type K63.5 and Left hip pain M25.552 [facility] [id number] [place] [address]- [address] Jan, [facility] [id number] [place] [address]13- [address] Jan, PAF (paroxysmal atrial fibrillation) I48.0 ; Palpitations R00.2 ; Pain in right leg M79.604 ; Pain of left leg M79.605 ; Sleep apnea in adult G47.33 ; Hypothyroidism, unspecified type E03.9 and Hyperlipidemia, unspecified hyperlipidemia type E78.5 [facility] [place] [address], [place] [address] Dec, [facility] [id number] [place] [address] 7[address] Oct, Chronic atrial fibrillation I48.2 [facility] [id number] [place] [address]- [address] 08 Oct, 2015 Chronic atrial fibrillation I48.2 [facility] [id number] [place] [address] 6[address]- [address] Oct, Depression, unspecified depression type F32.9 ; Chronic atrial fibrillation I48.2 ; Other chronic pain G89.29 and Hyperlipidemia, unspecified hyperlipidemia type E78.5 [facility] [address] [place] [address] Sep, [facility] [id number] [place] [address] 35593- [address] Aug, [facility] [id number] [place] [address]- [address] Aug, Dorsalgia, unspecified M54.9 ; Other chronic pain G89.29 ; Depression, unspecified depression type F32.9 and Chronic atrial fibrillation I48.2 [facility] [id number] [place] [address] 7[address]- [address] Aug, Other bipolar disorder F31.89 and Unspecified symptoms and signs involving cognitive functions and awareness R41.9 [facility] [id number] [place] [address]- 2085 Aug, Dental examination Z01.20 [facility] [id number] [place] [address]- [address] Aug, [facility] [id number] [place] [address] 49863- 32[address] Aug, Other bipolar disorder F31.89 [facility] [id number] [place] [address] 09677- 2419 Aug, [facility] [id number] [place] [address]61- [address] July, [facility] [id number] [place] [address] 29891- [address] July, [facility] [id number] [place] [address] 96273- 8[address] July, Other bipolar disorder F31.89 [facility] [id number] [place] [address] 9[address]- 9839 July, Other bipolar disorder F31.89 and Unspecified symptoms and signs involving cognitive functions and awareness R41.9 [facility] [address] [facility] [id number] [place] [address] July, Establishing care with new doctor, encounter for Z71.89 ; Bianca F30.9 ; Essential hypertension I10 and Hyperlipidemia, unspecified hyperlipidemia type E78.5 IMMUNIZATIONS Vaccine Route Administration Date Status PPSV23 (PNEUMOVAX) IM Intramuscular Feb 26, 2017 Administered SOCIAL HISTORY Never Assessed REASON FOR VISIT Medicare Annual Wellness Visit-Yanely MORRIS PLAN OF CARE Activity Details Follow Up annually for preventive care, sooner for chronic health maintenance Reason: VITAL SIGNS Height 66.0 in 2017-02-26 Weight 130.1 lbs 2017-02-26 Temperature 98.2 degrees Fahrenheit 2017-02-26 Heart Rate 74 bpm 2017-02-26 Respiratory Rate 18 2017-02-26 BMI 21.00 kg/m2 2017-02-26 Blood pressure systolic 132 mmHg 2017-02-26 Blood pressure diastolic 72 mmHg 2017-02-26 MEDICATIONS Medication Instructions Dosage Frequency Start Date End Date Duration Status Multivitamin Adult Active Levothyroxine Sodium 100 MCG Orally Once a day 1 tablet 24h 30 Active Fish Oil 1200 MG Orally twice a day 2 capsules 12h Active Aspirin Adult Low Dose 81 MG Orally Once a day 1 tablet 24h Active Lisinopril 40 mg Orally Once a day 1 tablet 24h 30 Active Prozac 40 mg Orally Once a day 1 capsule in the morning 24h 30 Active Flecainide Acetate 100 MG Orally 2 times a day 1 tablet 12h 30 Active Depakote ER 250 MG Orally Once a day 1 tablet at bedtime 24h 90 Active Zocor 40 mg Orally Once a day 1 tablet in the evening 24h 90 Active Eliquis 5 MG Orally BID 1 tablet 12h Active Naproxen 500 MG Orally every 12 hrs for back pain 1 tablet as needed 30 Active Calcium 200 mg Orally Twice a day 1 tablet 12h Active Triamcinolone Acetonide 0.5 % Externally Twice a day for 10 days and then prn. Apply Desitin over the triamcinolone 1 application to affected area Oct, Not-Taking Prilosec 40 mg Orally Once a day 1 capsule 24h 30 Active RESULTS No Results PROCEDURES Procedure Date Ordered Result Body Site ANNUAL WELLNES VST; PERSNL PPS INIT Feb 26, 2017 FALL RISK ASSESSMENT DOCD Feb 26, 2017 PPSV23 (PNEUMOVAX) Feb 26, 2017 PT TOBACCO SCREEN RCVD TLK Feb 26, 2017 SINGLE IMMUNIZATION ADMIN Feb 26, 2017 ADMN PNEUMCOC VAC NO FEE SCHED DAY Feb 26, 2017 INSTRUCTIONS MEDICATIONS ADMINISTERED No Known Medications [...] History tubal ligation Hospitalization History Hospitalization History [facility]
--- OUTSIDE RECORDS SUMMARY | 2017-12-29 10:07 | XMS REPORT ---
Author Author TINO GRESHAM [facility] [employer] Address Unknown Phone Unavailable Care Team Providers Care Trans Router Name Role Phone TINO GRESHAM CP Unavailable Allergies No Known Allergies Problems Problem Type Condition Code Onset Dates Condition Status Problem Other bipolar disorder F31.89 Active Problem Depression, unspecified depression type F32.9 Active Problem Chronic atrial fibrillation I48.2 Active Problem Unspecified symptoms and signs involving cognitive functions and awareness R41.9 Active Problem PAF (paroxysmal atrial fibrillation) I48.0 Active Problem Sleep apnea in adult G47.33 Active Problem Atrial fibrillation, unspecified type I48.91 Active Problem Dorsalgia, unspecified M54.9 Active Problem Other chronic pain G89.29 Active Problem Hypothyroidism, unspecified type E03.9 Active Problem Hyperlipidemia, unspecified hyperlipidemia type E78.5 Active Medications No Known Medications Results No Known Results Summary Purpose eClinical[employer] Submission
--- OUTSIDE RECORDS SUMMARY | 2017-12-29 10:07 | XMS REPORT ---
Author Author TINO GRESHAM [facility] Address [address] [place] [address] Care Team Providers Care Music Box Mechanic Name Role Phone TINO GRESHAM Unavailable PROBLEMS Type Condition ICD9-CM Code ALR14-FR Code Onset Dates Condition Status SNOMED Code Problem Chronic atrial fibrillation I48.2 Active 689092818 Problem Other chronic pain G89.29 Active 86184860 Problem Depression, unspecified depression type F32.9 Active 71194133 Problem Atrial fibrillation, unspecified type I48.91 Active 92666354 Problem PAF (paroxysmal atrial fibrillation) I48.0 Active 333403289 Problem Hyperlipidemia, unspecified hyperlipidemia type E78.5 Active 61275755 Problem Dorsalgia, unspecified M54.9 Active 046888583 Problem Sleep apnea in adult G47.33 Active 82426227 Problem Hypothyroidism, unspecified type E03.9 Active 14477331 Assessment Polyp of colon, unspecified part of colon, unspecified type K63.5 Jan, Active 63380717 Assessment Other bipolar disorder F31.89 Jan, Active 70487559 Problem Unspecified symptoms and signs involving cognitive functions and awareness R41.9 Active 887812080 Assessment Left hip pain M25.552 Jan, Active 40581118 Problem Other bipolar disorder F31.89 Active 09055551 ALLERGIES Substance Reaction Event Type Date Status N.K.D.A. Unknown Non Drug Allergy Jan, Unknown SOCIAL HISTORY No smoking Hx information available PLAN OF CARE VITAL SIGNS Height 66.0 in 2016-02-28 Weight 139.2 lbs 2016-02-28 Heart Rate 64 bpm 2016-02-28 Respiratory Rate 18 2016-02-28 BMI 22.47 kg/m2 2016-02-28 Blood pressure systolic 118 mmHg 2016-02-28 Blood pressure diastolic 80 mmHg 2016-02-28 MEDICATIONS Medication Instructions Dosage Frequency Start Date End Date Duration Status Prilosec 40 mg Orally Once a day 1 capsule 24h Active Zocor 40 mg Orally Once a day 1 tablet in the evening 24h Oct, Active Depakote ER 250 MG Orally Once a day 1 tablet at bedtime 24h 90 days Active Lisinopril 40 mg Orally Once a day 1 tablet 24h 30 days Active Fish Oil 1200 MG Orally twice a day 2 capsules 12h Active Flecainide Acetate 100 MG Orally 2 times a day 1 tablet 12h Active Naproxen 500 MG Orally every 12 hrs for back pain 1 tablet as needed Aug, Active Multivitamin Adult Active Calcium 200 mg Orally Twice a day 1 tablet 12h Active Prozac 40 mg Orally Once a day 1 capsule in the morning 24h 90 days Active Levothyroxine Sodium 125 mcg Orally Once a day 1 tablet 24h 30 days Active RESULTS No Results PROCEDURES Procedure Date Ordered Related Diagnosis Body Site X-RAY EXAM HIP UNI 2-3 VIEWS Feb 28, 2016 [facility] VISIT ESTABLISHED PATIENT Feb 28, 2016 Office Visit, Est Pt., Level 3 Feb 28, 2016 IMMUNIZATIONS No Known Immunizations
--- NOTE | 2017-12-29 10:08 | Discharge Inst-Simple/Standard ---
Discharge Inst-Standard Discharge Medications New, Converted or Re-Newed RX: Other Patient Instructions/Follow Up Plan of Care/Instructions/FU: repeat colonoscopy in 5 years. Follow up with her primary/please call for Protonix 40 mg daily 30 day supply with 5 refills Activity as Tolerated: Yes Discharge Diet: No Restrictions ABDOUL SMALL MD Dec 29, 2017 10:08
--- OUTSIDE RECORDS SUMMARY | 2017-12-29 10:08 | XMS REPORT | Continuity of Care Document ---
Author Author [facility] Organization [facility] Address Unknown Phone Unavailable Allergies Active Description Code Type Severity Reaction Onset Reported/Identified Relationship to Patient Clinical Status Yes No Known Drug Allergies [id number] Drug Allergy Unknown N/A 03/14/2016 Medications There is no data. Problems Date Dx Coded Attending Type Code Diagnosis Diagnosed By 08/15/2014 LISA MENENDEZ DO Ot 558.9 NONINF GASTROENTERIT NEC 08/15/2014 LISA MENENDEZ DO Ot 787.91 DIARRHEA 04/28/2015 SYDNEE PADGETT DO Ot M25.552 05/30/2015 SYDNEE PADGETT DO Ot M25.552 07/19/2015 SYDNEE PADGETT DO Ot M25.552 PAIN IN LEFT HIP 08/03/2015 ENDY CAPPS MD Ot M25.551 PAIN IN RIGHT HIP 08/03/2015 ENDY CAPPS MD Ot M25.552 PAIN IN LEFT HIP 08/03/2015 ENDY CAPPS MD Ot S00.531A CONTUSION OF LIP, INITIAL ENCOUNTER 08/03/2015 ENDY CAPPS MD Ot S03.2XXA DISLOCATION OF TOOTH, INITIAL ENCOUNTER 08/03/2015 ENDY CAPPS MD Ot W01.0XXA FALL SAME LEV FROM SLIP/TRIP W/O STRIKE 08/03/2015 ENDY CAPPS MD Ot Y92.010 KITCHEN OF SINGLE-FAMILY (PRIVATE) HOUSE 08/03/2015 ENDY CAPPS MD Ot Y93.E5 ACTIVITY, FLOOR MOPPING AND CLEANING 08/03/2015 ENDY CAPPS MD Ot Y99.8 OTHER EXTERNAL CAUSE STATUS 08/03/2015 ENDY CAPPS MD Ot Z96.641 PRESENCE OF RIGHT ARTIFICIAL HIP JOINT 08/03/2015 SYDNEE PADGETT DO Ot M25.552 PAIN IN LEFT HIP 12/21/2015 SYDNEE PADGETT DO S Ot M25.552 PAIN IN LEFT HIP 12/26/2015 SYDNEE PADGETT DO S Ot M25.552 PAIN IN LEFT HIP 02/15/2016 SYDNEE PADGETT DO S Ot M25.552 PAIN IN LEFT HIP 02/15/2016 DIPIKA KWAN FAC, ALI FACP CCDS Ot I48.0 PAROXYSMAL ATRIAL FIBRILLATION 02/20/2016 DIPIKA KWAN FACC, ALI FACP CCDS Ot I48.0 PAROXYSMAL ATRIAL FIBRILLATION 02/21/2016 DIPIKA KWAN FACC, ALI FACP CCDS Ot I48.0 PAROXYSMAL ATRIAL FIBRILLATION 02/21/2016 DIPIKA KWAN FACC, ALI FACP CCDS Ot I48.0 PAROXYSMAL ATRIAL FIBRILLATION 03/08/2016 DIPIAK KWAN FACC, ALI FACP CCDS Ot I48.0 PAROXYSMAL ATRIAL FIBRILLATION 03/15/2016 ABDOUL SMALL MD Ot Z01.818 ENCOUNTER FOR OTHER PREPROCEDURAL EXAMIN 03/15/2016 ABDOUL SMALL MD Ot Z80.0 FAMILY HISTORY OF MALIGNANT NEOPLASM OF 03/15/2016 ABDOUL SMALL MD Ot Z86.010 PERSONAL HISTORY OF COLONIC POLYPS 03/15/2016 DIPIKA KWAN [facility], ALI FACP CCDS Ot I48.0 PAROXYSMAL ATRIAL FIBRILLATION 03/18/2016 ABDOUL SMALL MD Ot E03.9 HYPOTHYROIDISM, UNSPECIFIED 03/18/2016 ABDOUL SMALL MD Ot I10 ESSENTIAL (PRIMARY) HYPERTENSION 03/18/2016 ABDOUL SMALL MD Ot I48.91 UNSPECIFIED ATRIAL FIBRILLATION 03/18/2016 ABDOUL SMALL MD Ot K57.90 DVRTCLOS OF INTEST, PART UNSP, W/O PERF 03/18/2016 ABDOUL SMALL MD Ot M19.90 UNSPECIFIED OSTEOARTHRITIS, UNSPECIFIED 03/18/2016 ABDOUL SMALL MD Ot Z12.11 ENCOUNTER FOR SCREENING FOR MALIGNANT NE 03/18/2016 ABDOUL SMALL MD Ot Z80.0 FAMILY HISTORY OF MALIGNANT NEOPLASM OF 03/18/2016 ABDOUL SMALL MD Ot Z86.010 PERSONAL HISTORY OF COLONIC POLYPS 03/19/2016 ABDOUL SMALL MD Ot E03.9 HYPOTHYROIDISM, UNSPECIFIED 03/19/2016 ABDOUL SMALL MD Ot I10 ESSENTIAL (PRIMARY) HYPERTENSION 03/19/2016 ABDOUL SMALL MD Ot I48.91 UNSPECIFIED ATRIAL FIBRILLATION 03/19/2016 ABDOUL SMALL MD Ot K57.90 DVRTCLOS OF INTEST, PART UNSP, W/O PERF 03/19/2016 ABDOUL SMALL MD Ot M19.90 UNSPECIFIED OSTEOARTHRITIS, UNSPECIFIED 03/19/2016 ABDOUL SMALL MD Ot Z12.11 ENCOUNTER FOR SCREENING FOR MALIGNANT NE 03/19/2016 ABDOUL SMALL MD Ot Z80.0 FAMILY HISTORY OF MALIGNANT NEOPLASM OF 03/19/2016 ABDOUL SMALL MD Ot Z86.010 PERSONAL HISTORY OF COLONIC POLYPS 03/20/2016 ABDOUL SMALL MD Ot Z01.818 ENCOUNTER FOR OTHER PREPROCEDURAL EXAMIN 03/20/2016 ABDOUL SMALL MD Ot Z80.0 FAMILY HISTORY OF MALIGNANT NEOPLASM OF 03/20/2016 ABDOUL SMALL MD Ot Z86.010 PERSONAL HISTORY OF COLONIC POLYPS 03/24/2016 ABDOUL SMALL MD Ot E03.9 HYPOTHYROIDISM, UNSPECIFIED 03/24/2016 ABDOUL SMALL MD Ot I10 ESSENTIAL (PRIMARY) HYPERTENSION 03/24/2016 ABDOUL SMALL MD Ot I48.91 UNSPECIFIED ATRIAL FIBRILLATION 03/24/2016 ABDOUL SMALL MD Ot K57.90 DVRTCLOS OF INTEST, PART UNSP, W/O PERF 03/24/2016 ABDOUL SMALL MD Ot M19.90 UNSPECIFIED OSTEOARTHRITIS, UNSPECIFIED 03/24/2016 ABDOUL SMALL MD Ot Z12.11 ENCOUNTER FOR SCREENING FOR MALIGNANT NE 03/24/2016 ABDOUL SMALL MD Ot Z80.0 FAMILY HISTORY OF MALIGNANT NEOPLASM OF 03/24/2016 ABDOUL SMALL MD Ot Z86.010 PERSONAL HISTORY OF COLONIC POLYPS 07/16/2016 MEHNAZ GARRETT APRN Ot G47.33 OBSTRUCTIVE SLEEP APNEA (ADULT) (PEDIATR 07/17/2016 MEHNAZ GARRETT APRN Ot G47.33 OBSTRUCTIVE SLEEP APNEA (ADULT) (PEDIATR 07/17/2016 MEHNAZ GARRETT APRN Ot G47.33 OBSTRUCTIVE SLEEP APNEA (ADULT) (PEDIATR 07/19/2016 MP, TINO CLINICAL AUDITOR Ot Z12.31 ENCNTR SCREEN MAMMOGRAM FOR MALIGNANT NE 07/19/2016 TINO GRESHAM CLINICAL AUDITOR Ot Z12.31 ENCNTR SCREEN MAMMOGRAM FOR MALIGNANT NE 07/19/2016 TINO GRESHAM CLINICAL AUDITOR Ot Z12.31 ENCNTR SCREEN MAMMOGRAM FOR MALIGNANT NE 07/22/2016 MEHNAZ GARRETT APRN Ot G47.33 OBSTRUCTIVE SLEEP APNEA (ADULT) (PEDIATR 07/23/2016 BAITREVA MORRIS L CLINICAL AUDITOR Ot I48.0 PAROXYSMAL ATRIAL FIBRILLATION 07/26/2016 LIU TREVA L CLINICAL AUDITOR Ot I48.0 PAROXYSMAL ATRIAL FIBRILLATION 08/12/2016 TINO GRESHAM CLINICAL AUDITOR Ot Z12.31 ENCNTR SCREEN MAMMOGRAM FOR MALIGNANT NE 08/23/2016 TREVA HATFIELD L CLINICAL AUDITOR Ot I48.0 PAROXYSMAL ATRIAL FIBRILLATION 10/16/2016 ADI PADGETT DOLINE S Ot M25.552 PAIN IN LEFT HIP 10/16/2016 DIPIKA KWAN FAC, ALI FACP CCDS Ot I48.0 PAROXYSMAL ATRIAL FIBRILLATION 10/16/2016 DIPIKA KWAN FAC, ALI FACP CCDS Ot I48.0 PAROXYSMAL ATRIAL FIBRILLATION 10/16/2016 STACI KWAN, ABDOUL Alegre Ot Z01.818 ENCOUNTER FOR OTHER PREPROCEDURAL EXAMIN 10/16/2016 STACI KWAN, ABDOUL Alegre Ot Z80.0 FAMILY HISTORY OF MALIGNANT NEOPLASM OF 10/16/2016 STACI KWAN, ABDOUL Alegre Ot Z86.010 PERSONAL HISTORY OF COLONIC POLYPS 10/16/2016 TINO GRESHAM CLINICAL AUDITOR Ot Z12.31 ENCNTR SCREEN MAMMOGRAM FOR MALIGNANT NE 10/16/2016 TREVA HATFIELD L CLINICAL AUDITOR Ot I48.0 PAROXYSMAL ATRIAL FIBRILLATION 10/20/2016 TREVA HATFIELD L CLINICAL AUDITOR Ot I48.0 PAROXYSMAL ATRIAL FIBRILLATION 08/19/2017 TINO GRESHAM CLINICAL AUDITOR Ot Z12.31 ENCNTR SCREEN MAMMOGRAM FOR MALIGNANT NE 09/10/2017 TINO GRESHAM CLINICAL AUDITOR Ot Z12.31 ENCNTR SCREEN MAMMOGRAM FOR MALIGNANT NE 12/11/2017 KATHYER ADI HOOPERLINE S Ot M25.552 PAIN IN LEFT HIP 12/11/2017 DIPIKA KWAN FACC, ALI FACP CCDS Ot I48.0 PAROXYSMAL ATRIAL FIBRILLATION 12/11/2017 DIPIKA KWAN [facility] CCDS Ot I48.0 PAROXYSMAL ATRIAL FIBRILLATION 12/11/2017 STACI KWAN, ABDOUL Alegre Ot Z01.818 ENCOUNTER FOR OTHER PREPROCEDURAL EXAMIN 12/11/2017 ABDOUL SMALL MD Ot Z80.0 FAMILY HISTORY OF MALIGNANT NEOPLASM OF 12/11/2017 ABDOUL SMALL MD Ot Z86.010 PERSONAL HISTORY OF COLONIC POLYPS 12/11/2017 TINO GRESHAM CLINICAL AUDITOR Ot Z12.31 ENCNTR SCREEN MAMMOGRAM FOR MALIGNANT NE 12/11/2017 TREVA HATFIELD CLINICAL AUDITOR Ot I48.0 PAROXYSMAL ATRIAL FIBRILLATION 12/11/2017 TINO GRESHAM CLINICAL AUDITOR Ot Z12.31 ENCNTR SCREEN MAMMOGRAM FOR MALIGNANT NE 12/16/2017 TINO GRESHAM CLINICAL AUDITOR Ot D50.9 IRON DEFICIENCY ANEMIA, UNSPECIFIED Procedures There is no data. Results Test Result Range TSH - 06/20/16 09:15 TSH 0.125 uIU/mL 0.450-4.500 Prothrombin Time (PT) - 07/15/16 09:08 INR 2.6 0.8-1.2 Prothrombin Time 26.8 sec 9.1-12.0 PT panel in platelet poor plasma by coagulation assay - 07/22/16 14:44 Prothrombin time (PT) in platelet poor plasma by coagulation assay 21.7 s 12.2-14.7 INR in platelet poor plasma or blood by coagulation assay 1.9 0.8-1.4 PT panel in platelet poor plasma by coagulation assay - 08/01/16 09:22 Prothrombin time (PT) in platelet poor plasma by coagulation assay 17.2 s 12.2-14.7 INR in platelet poor plasma or blood by coagulation assay 1.4 0.8-1.4 TSH - 09/23/16 17:07 TSH 0.580 uIU/mL 0.450-4.500 Comp. Metabolic Panel (14) - 10/10/16 10:33 Glucose, Serum 69 mg/dL 65-99 BUN 19 mg/dL 8-27 Creatinine, Serum 1.14 mg/dL 0.57-1.00 eGFR If NonAfricn Am 50 mL/min/1.73 >59 eGFR If Africn Am 57 mL/min/1.73 >59 BUN/Creatinine Ratio 17 12-28 Sodium, Serum 142 mmol/L 134-144 Potassium, Serum 4.5 mmol/L 3.5-5.2 Chloride, Serum 101 mmol/L 96-106 Carbon Dioxide, Total 24 mmol/L 18-29 Calcium, Serum 9.7 mg/dL 8.7-10.3 Protein, Total, Serum 6.5 g/dL 6.0-8.5 Albumin, Serum 4.2 g/dL 3.6-4.8 Globulin, Total 2.3 g/dL 1.5-4.5 A/G Ratio 1.8 1.2-2.2 Bilirubin, Total 0.5 mg/dL 0.0-1.2 Alkaline Phosphatase, S 49 IU/L 39-117 AST (SGOT) 24 IU/L 0-40 ALT (SGPT) 15 IU/L 0-32 Lipid Panel - 10/10/16 10:33 Cholesterol, Total 215 mg/dL 100-199 Triglycerides 97 mg/dL 0-149 HDL Cholesterol 92 mg/dL >39 VLDL Cholesterol Stu 19 mg/dL 5-40 LDL Cholesterol Calc 104 mg/dL 0-99 TSH - 08/14/17 08:54 TSH 1.06 mIU/L 0.40-4.50 LIPID PANEL - 11/18/17 10:10 CHOLESTEROL, TOTAL 216 mg/dL <200 HDL CHOLESTEROL 92 mg/dL >50 TRIGLYCERIDES 124 mg/dL <150 LDL-CHOLESTEROL 101 mg/dL (calc) NRG CHOL/HDLC RATIO 2.3 (calc) <5.0 NON HDL CHOLESTEROL 124 mg/dL (calc) <130 CBC - 11/18/17 10:10 WHITE BLOOD CELL COUNT 5.6 Thousand/uL 3.8-10.8 RED BLOOD CELL COUNT 3.82 Million/uL 3.80-5.10 HEMOGLOBIN 9.6 g/dL 11.7-15.5 HEMATOCRIT 31.3 % 35.0-45.0 MCV 81.9 fL 80.0-100.0 MCH 25.1 pg 27.0-33.0 MCHC 30.7 g/dL 32.0-36.0 RDW 14.5 % 11.0-15.0 PLATELET COUNT 282 Thousand/uL 140-400 MPV 10.1 fL 7.5-12.5 ABSOLUTE NEUTROPHILS 3382 cells/uL 7257-1443 ABSOLUTE LYMPHOCYTES 1282 cells/uL 850-3900 ABSOLUTE MONOCYTES 672 cells/uL 200-950 ABSOLUTE EOSINOPHILS 213 cells/uL 15-500 ABSOLUTE BASOPHILS 50 cells/uL 0-200 NEUTROPHILS 60.4 % NRG LYMPHOCYTES 22.9 % NRG MONOCYTES 12.0 % NRG EOSINOPHILS 3.8 % NRG BASOPHILS 0.9 % NRG Automated reticulocyte percentage - 12/11/17 10:15 Blood erythrocytes automated count (number/volume) 3.72 10*6/uL 4.35-5.85 Blood reticulocytes count (number/volume) 60 10*9/L 24- 90 Blood reticulocytes/100 erythrocytes 1.61 % 0.50-2.40 Serum or plasma folate measurement (mass/volume) - 12/11/17 10:15 Serum or plasma folate measurement (mass/volume) 16.4 % > =4.0 Serum iron and total iron binding capacity panel - 12/11/17 10:15 Serum or plasma iron measurement (mass/volume) 46 % 35- 180 Total iron binding capacity and transferrin saturation measurement 10 % 15-50 Iron binding capacity [mass/volume] in serum or plasma 480 % 280-380 UIBC (unsaturated iron binding capacity) 434 % 55-450 Serum or plasma ferritin measurement (mass/volume) 5.0 % 20.0-177.0 Cyanocobalamin measurement - 12/11/17 10:15 Vitamin B12 664 pg/mL 190-1100 Complete urinalysis with reflex to culture - 12/11/17 12:50 Urine color determination YELLOW NRG Urine clarity determination CLEAR NRG Urine pH measurement by test strip 8 5-9 Specific gravity of urine by test strip 1.010 1.016- 1.022 Urine protein assay by test strip, semi-quantitative NEGATIVE NEGATIVE Urine glucose detection by automated test strip NEGATIVE NEGATIVE Erythrocytes detection in urine sediment by light microscopy NEGATIVE NEGATIVE Urine ketones detection by automated test strip NEGATIVE NEGATIVE Urine nitrite detection by test strip NEGATIVE NEGATIVE Urine total bilirubin detection by test strip NEGATIVE NEGATIVE Urine urobilinogen measurement by automated test strip (mass/volume) 1 mg/dL NORMAL Urine leukocyte esterase detection by dipstick 1+ NEGATIVE Automated urine sediment erythrocyte count by microscopy (number/high power field) [HPF] NRG Automated urine sediment leukocyte count by microscopy (number/high power field ) [HPF] NRG Bacteria detection in urine sediment by light microscopy LARGE NRG Squamous epithelial cells detection in urine sediment by light microscopy NONE NRG Crystals detection in urine sediment by light microscopy NONE NRG Casts detection in urine sediment by light microscopy NONE NRG Mucus detection in urine sediment by light microscopy NEGATIVE NRG Complete urinalysis with reflex to culture YES NRG Bacterial urine culture - 12/11/17 12:50 Bacterial urine culture [id number] NRG COLONY COUNT >100,000/ML NRG FTX;REPORTABLE RML SENT SENSITIVITY REPORT 12/13 08:05 NRG RML Sensitivity Panel - 12/11/17 12:50 Gentamicin susceptibility test by minimum inhibitory concentration < = NRG Trimethoprim/sulfamethoxazole susceptibility test by minimum inhibitoryconcentration <= NRG Levofloxacin susceptibility test by minimum inhibitory concentration <= NRG Cefazolin susceptibility test by minimum inhibitory concentration 2 NRG Ceftriaxone susceptibility test by minimum inhibitory concentration <= NRG Ciprofloxacin susceptibility test by minimum inhibitory concentration <= NRG Meropenem susceptibility test by minimum inhibitory concentration < = NRG Nitrofurantoin susceptibility test by minimum inhibitory concentration <= NRG Amoxicillin and clavulanate potassium susc RUSSELL <= NRG Encounters ACCT No. Visit Date/Time Discharge Status Pt. Type Provider Facility Loc./Unit Complaint [id number] 12/22/2017 05:51:00 12/22/2017 23:59:59 CLS Outpatient ABDOUL SMALL MD [facility] PREOP COLO/EGD [id number] 12/11/2017 09:59:00 12/11/2017 23:59:59 CLS Outpatient TINO GRESHAM [facility] LAB D50.9 [id number] 08/18/2017 08:27:00 08/18/2017 23:59:59 CLS Outpatient TINO GRESHAM [facility] RAD Z12.31 SCREENING MAMMOGRAM FOR BREAST CANCER [id number] 10/21/2016 00:16:00 10/21/2016 23:59:59 CLS Preadmit TREVA HATFIELD [facility] LAB I48.0 [id number] 08/01/2016 09:19:00 10/20/2016 00:01:00 DIS Outpatient TREVA HATFIELD [facility] LAB I48.0 [id number] 07/19/2016 09:38:00 07/19/2016 23:59:59 CLS Outpatient TINO GRESHAMP [facility] RAD SCREENING [id number] 07/16/2016 19:45:00 07/17/2016 06:35:00 DIS Outpatient MEHNAZ GARRETT APRN [facility] SLEEP LEIGHA,HYPERSOMNIA, CARDIAC ARRHYTHMIA [id number] 03/18/2016 09:20:00 03/18/2016 12:20:00 DIS Outpatient ABDOUL SMALL MD [facility] SDC HISTORY POLYPS [id number] 03/14/2016 08:24:00 03/14/2016 23:59:59 CLS Outpatient ABDOUL SMALL MD [facility] PREOP HISTORY OF POLYPS [id number] 02/20/2016 09:00:00 02/20/2016 23:59:59 CLS Outpatient DIPIKA KWAN FACC, ALI FACP CCDS [facility] CARD PAF [id number] 02/15/2016 07:14:00 02/15/2016 23:59:59 CLS Outpatient DIPIKA KWAN FACC, ALI FACP CCDS [facility] CARD PAF [id number] 08/03/2015 09:40:00 08/03/2015 12:43:00 DIS Emergency ENDY CAPPS MD [facility] ER FALL [id number] 04/11/2015 11:50:00 04/11/2015 23:59:59 CLS Outpatient SYDNEE PADGETT DO [facility] RAD LT HIP PAIN [id number] 08/15/2014 12:51:00 08/15/2014 16:00:00 DIS Emergency LISA MENENDEZ DO [facility] ER DIARRHEA/NAUSEA WEAKNESS [id number] 12/29/2017 08:30:00 PEN Preadmit ABDOUL SMALL MD [facility] ENDO IRON DEFF ANEMIA/FX HX COLON CA [id number] 10/21/2017 18:16:29 10/21/2017 23:59:59 CLS Outpatient Sydnee Padgett [facility] 08/15/2014 12:52:09 ACT Document Registration [id number] 07/16/2016 07:05:00 Document Registration [id number] 10/11/2016 08:42:00 Document Registration [id number] 06/21/2016 09:12:00 Document Registration [id number] 09/24/2016 08:36:00 Document Registration [id number] 09/10/2017 09:15:00 09/10/2017 23:59:59 [facility] Outpatient TINO GRESHAM APRN [facility] [id number] 11/18/2017 09:00:00 Document Registration [id number] 08/14/2017 09:20:00 Document Registration
[2017-12-29 10:20] VITALS: BP 141/73
[2017-12-29 10:50] VITALS: BP 139/65
[2017-12-29 11:20] VITALS: BP 139/65
== END 2017-12-29 11:40 | disposition home or self-care (01) ==
LOC: ENDO 07:33
PROVIDERS: ATTEND Surgery
DX: D50.9 Iron deficiency anemia, unspecified (principal); K20.9 Esophagitis, unspecified; K25.9 Gastric ulcer, unspecified as acute or chronic, without hemorrhage or perforation; K64.4 Residual hemorrhoidal skin tags; Z80.0 Family history of malignant neoplasm of digestive organs; Z79.899 Other long term (current) drug therapy; Z87.891 Personal history of nicotine dependence; I48.91 Unspecified atrial fibrillation; I10 Essential (primary) hypertension; E03.9 Hypothyroidism, unspecified; F41.9 Anxiety disorder, unspecified; F32.9 Major depressive disorder, single episode, unspecified

== ENCOUNTER → 2018-04-16 | Outpatient (CLI) | payer MEDICARE, OTHER | LOC: CARD 13:01 | PROVIDERS: ATTEND Nurse Practitioner Family | DX: I10 Essential (primary) hypertension (principal); I48.0 Paroxysmal atrial fibrillation; I08.0 Rheumatic disorders of both mitral and aortic valves; R09.89 Other specified symptoms and signs involving the circulatory and respiratory systems; E78.5 Hyperlipidemia, unspecified | CPT/HCPCS: 93306 ==

== ENCOUNTER → 2018-05-18 | Outpatient (CLI) | payer MEDICARE, OTHER | LOC: CARD 10:20 | PROVIDERS: ATTEND Nurse Practitioner Family | DX: R42 Dizziness and giddiness (principal); I95.1 Orthostatic hypotension; I10 Essential (primary) hypertension; I08.0 Rheumatic disorders of both mitral and aortic valves; Q21.1 Atrial septal defect | CPT/HCPCS: 93225; 93226 ==

== ENCOUNTER → 2018-09-07 | Outpatient (CLI) | payer MEDICARE, OTHER ==
[~2018-09-07] MED LIST changes: +CHOL200014 PO; -CHOL200085 PO
--- NOTE | 2018-09-08 12:41 | Diagnostic Imaging Report ---
EXAMINATION: Digital mammogram bilateral screening with 3D tomosynthesis and CAD. INDICATION: Screening. COMPARISON: This study is compared to the prior exams of 08/18/2017, 07/19/2016, and 07/18/2015. PERSONAL HISTORY: At this time, there are no current complaints. FINDINGS: The fibroglandular tissue in both breasts is heterogeneously dense. This does limit the sensitivity of this exam. Overall, there does not appear to have been any significant change when compared to the prior study. No primary or secondary sign of malignancy is noted. IMPRESSION: There is no radiographic evidence for malignancy. ACR BI-RADS Category 1: Negative. Result letter will be mailed to the patient. Note: At least 10% of breast cancer is not imaged by mammography. Dictated by: Dictated on workstation # [id number]
== END ==
LOC: RAD 11:19
PROVIDERS: ATTEND Nurse Practitioner Family
DX: Z12.31 Encounter for screening mammogram for malignant neoplasm of breast (principal)
CPT/HCPCS: 77067

== ENCOUNTER → 2019-03-22 | Outpatient (CLI) | payer MEDICARE, OTHER ==
--- NOTE | 2019-03-22 10:31 | Diagnostic Imaging Report ---
INDICATION: Neck pain. TIME OF EXAM: 10:15 a.m. EXAMINATION: Three-view cervical spine were obtained. FINDINGS: Minimal anterolisthesis of C3 on C4 is noted. There is also anterolisthesis of C7 on T1. Multilevel degenerative disc disease is noted, greatest C5-C6 and C6-C7 levels where there is significant disc space narrowing and large marginal osteophytes. Multilevel facet arthropathy is noted. No fractures are seen. Prevertebral tissues are within normal limits. Odontoid is intact. IMPRESSION: Cervical spondylosis and listhesis. No acute bony abnormality is detected. Dictated by: Dictated on workstation # [id number]
== END ==
LOC: RAD 09:53
PROVIDERS: ATTEND Nurse Practitioner Family
DX: M47.812 Spondylosis without myelopathy or radiculopathy, cervical region (principal); M43.12 Spondylolisthesis, cervical region
CPT/HCPCS: 72040

== ENCOUNTER → 2019-04-26 | Outpatient (CLI) | payer MEDICARE, OTHER ==
[~2019-04-26] MED LIST changes: +OMEP40CA27 PO; -OMEP40CA36 PO; +SIMV40TA25 PO; -SIMV40TA4 PO
--- NOTE | 2019-04-26 16:56 | Diagnostic Imaging Report ---
PROCEDURE: MR imaging cervical spine without contrast. TECHNIQUE: Multiplanar, multisequence MR imaging of the cervical spine was performed without contrast. DATE: April 26, 2019. COMPARISON: Cervical spine radiographs March 22, 2019. INDICATION: 68-year-old female, neck pain. FINDINGS: There is grade 1 anterolisthesis of C3 on C4 which measures 4 mm. There is loss of normal cervical lordosis. There is moderate disc height loss at C5-C6. There is severe disc height loss at C6-C7. There are associated endplate degenerative related changes at these levels. There is arthritis at the C1-C2 articulation with small C1-C2 joint effusion. There is no identified abnormal signal within the spinal cord. C2-C3: There is no disc bulge. The uncovertebral and facet joints are unremarkable. There is no foraminal narrowing. There is no spinal canal stenosis. C3-C4: There is no disc bulge. There are advanced left facet degenerative changes. There is high-grade left foraminal narrowing. There is no spinal canal stenosis. C4-C5: There is a small posterior disc osteophyte complex. There are advanced left facet degenerative changes. There is moderate to severe left foraminal narrowing. There is no spinal canal stenosis. C5-C6: There is no disc bulge. There are left uncovertebral degenerative changes. There is moderate to severe left foraminal narrowing. There is no spinal canal stenosis. C6-C7: There is a small posterior disc osteophyte complex. There are mild left uncovertebral degenerative changes. There is moderate left foraminal narrowing. There is no spinal canal stenosis. C7-T1: There is a small left lateral recessed posterior disc osteophyte complex. The uncovertebral and facet joints are unremarkable. There is mild left foraminal narrowing. There is no spinal canal stenosis. IMPRESSION: 1. Multilevel disc, uncovertebral, and facet degenerative changes of the cervical spine as described specifically level by level above. 2. Grade 1 anterolisthesis of C3 on C4. 3. C1-C2 arthritis and small joint effusion at the C1-C2 articulation. This potentially can be seen with CPPD and rheumatoid arthritis. Dictated by: Dictated on workstation # [id number]
== END ==
LOC: RAD 15:01
PROVIDERS: ATTEND Nurse Practitioner Family
DX: M47.892 Other spondylosis, cervical region (principal); M25.48 Effusion, other site
CPT/HCPCS: 72141

== ENCOUNTER → 2019-05-03 | Outpatient (CLI) | payer MEDICARE, OTHER ==
--- NOTE | 2019-05-03 12:47 | Diagnostic Imaging Report ---
INDICATION: Left shoulder pain. COMPARISON: None. FINDINGS: Three views of the left shoulder were obtained. There is no fracture, dislocation, or other acute bony abnormality identified. The soft tissues appear unremarkable. No radiopaque foreign bodies identified. The visualized portions of the left lung are clear. IMPRESSION: No acute fractures or dislocations of the left shoulder. Dictated by: Dictated on workstation # [id number]
== END ==
LOC: RAD 11:39
PROVIDERS: ATTEND Nurse Practitioner Family
DX: M25.512 Pain in left shoulder (principal)
CPT/HCPCS: 73030

== ENCOUNTER 2019-05-07 14:58 | Emergency (ER) | payer MEDICARE, OTHER ==
[~2019-05-07] VITALS: Ht 167 cm; Wt 56.6 kg
[2019-05-07] MEDS ORDERED: NS IV 1000 ML 1,000 ML IV SCH (16:00)
[2019-05-07] MEDS ORDERED: KETOROLAC 30 MG/ML VIAL IVP ONE (16:00)
[2019-05-07] MEDS ORDERED: ONDANSETRON 4 MG/2 ML (SDV) Z0FRAN IVP ONE (16:00)
--- NOTE | 2019-05-07 16:01 | ED General ---
General Chief Complaint: General Problems/Pain Stated Complaint: DIZZINESS;WEAKNESS Nursing Triage Note: weakness, vomitting, dizziness, loss of balance. patient states she thinks it started yesterday. pain in neck and shoulders, states left arm painful with movement. Nursing Sepsis Screen: No Definite Risk Source of Information: Patient, Family Exam Limitations: No Limitations History of Present Illness Date Seen by Provider: May 07, 2019 Time Seen by Provider: 15:59 Initial Comments To ER with diffuse lower abdominal pain, nausea and vomiting that began last night. She denies dizziness now or at any time. She has felt feverish. No diarrhea. Timing/Duration: 1-2 Days Severity: Moderate Associated Systoms: Nausea/Vomiting Allergies and Home Medications Allergies Coded Allergies: No Known Drug Allergies (Unverified , 03/14/16) Home Medications Apixaban 5 Mg Tablet, 5 MG PO BID, (Reported) Aspirin 81 Mg Tablet.dr, 81 MG PO HS, (Reported) Calcium Carbonate/Vitamin D3 1 Each Tablet, 1 EACH PO DAILY, (Reported) Divalproex Sodium 250 Mg Tab.er.24h, 250 MG PO HS, (Reported) Flecainide Acetate 100 Mg Tablet, 100 MG PO BID, (Reported) Fluoxetine HCl 40 Mg Capsule, 40 MG PO DAILY, (Reported) Levothyroxine Sodium 100 Mcg Tablet, 100 MCG PO DAILY, (Reported) Lisinopril 40 Mg Tablet, 40 MG PO DAILY, (Reported) Multivit-Min/FA/Lycopene/Lut 1 Each Tablet, 1 EACH PO DAILY, (Reported) Naproxen 500 Mg Tablet.dr, 500 MG PO Q12H PRN for BACK PAIN, (Reported) Omeprazole 40 Mg Capsule.dr, 40 MG PO DAILY, (Reported) Simvastatin 40 Mg Tablet, 40 MG PO HS, (Reported) Patient Home Medication List Home Medication List Reviewed: Yes Review of Systems Review of Systems Constitutional: see HPI EENTM: see HPI Respiratory: no symptoms reported Cardiovascular: no symptoms reported Gastrointestinal: abdominal pain, nausea, vomiting Genitourinary: no symptoms reported Musculoskeletal: no symptoms reported Skin: no symptoms reported Psychiatric/Neurological: No Symptoms Reported Hematologic/Lymphatic: No Symptoms Reported Immunological/Allergic: no symptoms reported Past Rdcuegm-Ssdbhh-Nteoem Hx Patient Social History Type Used: Cigarettes Former Smoker, Quit: Mar 14, 2000 Recent Foreign Travel: No Contact w/Someone Who Travel: No Recent Infectious Disease Expo: No Recent Hopitalizations: No Immunizations Up To Date Tetanus Booster (TDap): Less than 5yrs Date of Pneumonia Vaccine: Mar 14, 2015 Date of Influenza Vaccine: Jan 08, 2016 Seasonal Allergies Seasonal Allergies: No Past Medical History Surgeries: Yes Hysterectomy, Joint Replacement, Orthopedic, Tonsillectomy, Tubal Ligation Respiratory: No Sleep Apnea Currently Using CPAP: No Cardiac: Yes Atrial Fibrillation, Hypertension Neurological: No 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 Sexually Transmitted Disease: No HIV/AIDS: No Genitourinary: No Gastrointestinal: Yes Polyps Musculoskeletal: Yes Arthritis, Chronic Back Pain Hypothyroidsim Cataract Loss of Vision: Bilateral Hearing Impairment: Denies Cancer: No Did You Recieve Any Treatments: No Anxiety, Depression Blood Disorders: No (iron def anemia) Adverse Reaction/Blood Tranf: No (N/A) Family Medical History Colon cancer Physical Exam Vital Signs Vital Signs - First Documented 05/07/19 15:07 Temp 36.9 Pulse 70 Resp 20 B/P (MAP) 185/97 (126) Pulse Ox 97 O2 Delivery Room Air Capillary Refill : Less Than 3 Seconds Height, Weight, BMI Height: 5'6.00" Weight: 135lbs. 0.0oz. 61.143750vm; 20.00 BMI Method:Stated General Appearance: No Apparent Distress, WD/WN Eyes: Bilateral Eye Normal Inspection, Bilateral Eye PERRL, Bilateral Eye EOMI HEENT: PERRL/EOMI, TMs Normal Neck: Full Range of Motion, Normal Inspection Respiratory: No Accessory Muscle Use Gastrointestinal: Soft, Tenderness (Mild diffuse tenderness) Extremity: Normal Capillary Refill, Normal Inspection Neurologic/Psychiatric: Alert, Oriented x3 Skin: Normal Color, Warm/Dry Progress/Results/Core Measures Suspected Sepsis Recent Fever Within 48 Hours: Yes Infection Criteria Present: None New/Unexplained Altered Menta: No Sepsis Screen: No Definite Risk SIRS Temperature: Pulse: 70 Respiratory Rate: 20 Laboratory Tests 05/07/19 16:00: White Blood Count 11.1H Blood Pressure 185 /97 Mean: 126 Laboratory Tests 05/07/19 16:00: Creatinine 1.67H, Platelet Count 255, Total Bilirubin 0.6 Results/Orders Lab Results Laboratory Tests Test 05/07/19 16:00 05/07/19 16:28 05/07/19 18:53 Range/Units White Blood Count 11.1 H 4.3-11.0 10^3/uL Red Blood Count 4.39 4.35-5.85 10^6/uL Hemoglobin 13.6 11.5-16.0 G/DL Hematocrit 40 35-52 % Mean Corpuscular Volume 91 80-99 FL Mean Corpuscular Hemoglobin 31 25-34 PG Mean Corpuscular Hemoglobin Concent 34 32-36 G/DL Red Cell Distribution Width 12.9 10.0-14.5 % Platelet Count 255 130-400 10^3/uL Mean Platelet Volume 10.4 7.4-10.4 FL Neutrophils (%) (Auto) 87 H 42-75 % Lymphocytes (%) (Auto) 8 L 12-44 % Monocytes (%) (Auto) 5 0-12 % Eosinophils (%) (Auto) 0 0-10 % Basophils (%) (Auto) 0 0-10 % Neutrophils # (Auto) 9.7 H 1.8-7.8 X 10^3 Lymphocytes # (Auto) 0.9 L 1.0-4.0 X 10^3 Monocytes # (Auto) 0.5 0.0-1.0 X 10^3 Eosinophils # (Auto) 0.0 0.0-0.3 10^3/uL Basophils # (Auto) 0.0 0.0-0.1 10^3/uL Neutrophils % (Manual) 89 % Lymphocytes % (Manual) 8 % Monocytes % (Manual) 3 % Blood Morphology Comment NORMAL Sodium Level 137 135-145 MMOL/L Potassium Level 4.4 3.6-5.0 MMOL/L Chloride Level 100 98-107 MMOL/L Carbon Dioxide Level 25 21-32 MMOL/L Anion Gap 12 5-14 MMOL/L Blood Urea Nitrogen 25 H 7-18 MG/DL Creatinine 1.67 H 0.60-1.30 MG/DL Estimat Glomerular Filtration Rate 30 BUN/Creatinine Ratio 15 Glucose Level 113 H 70-105 MG/DL Calcium Level 14.1 *H 11.8 H 8.5-10.1 MG/DL Corrected Calcium 8.5-10.1 MG/DL Total Bilirubin 0.6 0.1-1.0 MG/DL Aspartate Amino Transf (AST/SGOT) 33 5-34 U/L Alanine Aminotransferase (ALT/SGPT) 25 0-55 U/L Alkaline Phosphatase 55 40-136 U/L Troponin I < 0.028 <0.028 NG/ML Total Protein 7.8 6.4-8.2 GM/DL Albumin 4.9 H 3.2-4.5 GM/DL Lipase 50 8-78 U/L Urine Color YELLOW Urine Clarity CLEAR Urine pH 6.0 5-9 Urine Specific Metz >=1.030 1.016-1.022 Urine Protein NEGATIVE NEGATIVE Urine Glucose (UA) NEGATIVE NEGATIVE Urine Ketones NEGATIVE NEGATIVE Urine Nitrite NEGATIVE NEGATIVE Urine Bilirubin NEGATIVE NEGATIVE Urine Urobilinogen 0.2 < = 1.0 MG/DL Urine Leukocyte Esterase NEGATIVE NEGATIVE Urine RBC (Auto) NEGATIVE NEGATIVE Urine RBC 0-2 /HPF Urine WBC 0-2 /HPF Urine Crystals PRESENT H /LPF Urine Amorphous Sediment MOD BHARATH URATES H /LPF Urine Bacteria TRACE /HPF Urine Casts PRESENT /LPF Urine Hyaline Casts 10-25 H /LPF Urine Mucus NEGATIVE /LPF Urine Culture Indicated NO My Orders Orders - CELE BARRERA APRN Cbc With Automated Diff (05/07/19 15:49) Comprehensive Metabolic Panel (05/07/19 15:49) Lipase (05/07/19 15:49) Ua Culture If Indicated (05/07/19 15:49) Ed Iv/Invasive Line Start (05/07/19 15:49) Troponin I (05/07/19 15:58) Ekg Tracing (05/07/19 15:58) Ondansetron Injection (Zofran Injectio (05/07/19 16:00) Ns Iv 1000 Ml (Sodium Chloride 0.9%) (05/07/19 16:00) Ketorolac Injection (Toradol Injection) (05/07/19 16:00) Fentanyl Injection (Sublimaze Injection (05/07/19 16:15) Manual Differential (05/07/19 16:00) Para Thryoid Hormone Intact (05/07/19 16:50) Vitamin D 1,25 Dihydroxy (05/07/19 16:50) Ct Abdomen/Pelvis Wo (05/07/19 16:52) Ns Iv 500 Ml (Sodium Chloride 0.9%) (05/07/19 17:15) Clonidine Tablet (Catapres Tablet) (05/07/19 17:45) Calcium (05/07/19 18:41) Medications Given in ED Current Medications Medications Dose Ordered Sig/Tracy Route Start Time Stop Time Status Last Admin Dose Admin Clonidine HCl 0.1 mg ONCE ONCE PO 05/07/19 17:45 05/07/19 17:46 DC 05/07/19 17:40 0.1 MG Fentanyl Citrate 25 mcg ONCE PRN IVP 05/07/19 16:15 05/07/19 16:29 25 MCG Ondansetron HCl 4 mg ONCE ONCE IVP 05/07/19 16:00 05/07/19 16:01 DC 05/07/19 16:29 4 MG Vital Signs/I&O 05/07/19 15:07 Temp 36.9 Pulse 70 Resp 20 B/P (MAP) 185/97 (126) Pulse Ox 97 O2 Delivery Room Air Capillary Refill : Less Than 3 Seconds Blood Pressure Mean: 126 Diagnostic Imaging Diagonstic Imaging: CT Comments NAME: NAM KEN [facility] REC#: [id number] PT STATUS: REG ER : 1950 PHYSICIAN: CELE BARRERA PATIENT CARE ADMIT DATE: 05/07/19/ER Draft Date of Exam:05/07/19 CT ABDOMEN/PELVIS WO PROCEDURE: CT abdomen and pelvis without contrast. TECHNIQUE: Multiple contiguous axial images were obtained through the abdomen and pelvis without the use of intravenous contrast. Auto Exposure Controls were utilized during the CT exam to meet ALARA standards for radiation dose reduction. INDICATION: Weakness with emesis. COMPARISON: Comparison is made with study of 08/15/2014. FINDINGS: Unenhanced images of the liver and spleen reveal no focal abnormality. There is no evidence of gallbladder, pancreatic, or adrenal gland abnormality. Evaluation of the kidneys is limited without intravenous contrast; however, there is no evidence of stone, mass, or hydronephrosis. There is no evidence of free fluid within the abdomen or pelvis. No organized fluid collection is identified. There is no evidence of pathologic adenopathy. Images of the pelvis are somewhat limited due to artifact from right hip prosthesis. IMPRESSION: No evidence of acute abnormality or adverse change on the unenhanced CT study. Dictated on workstation # [id number] Dict: 05/07/19 1740 Trans: 05/07/19 1745 [id number] Interpreted by: DUY FARIA MD Electronically signed by: Departure Communication (Admissions) Discussed with her the hypercalcemia, she states that she does take a calcium supplement twice a day. I'll hydrate her with 1.5 L of normal saline and repeat calcium level. Impression Primary Impression: Hypercalcemia Additional Impression: Volume depletion Disposition: 01 HOME, SELF-CARE Condition: Stable Departure-Patient Inst. Decision time for Depature: 19:20 Referrals: LALITA HE MD (PCP/Family) Primary Care Physician Patient Instructions: Hypercalcemia (DC) Add. Discharge Instructions: 1. Stop taking your calcium supplement 2. Call Dr. He's office tomorrow to make an appointment to be seen. Return to ER for any worsening symptoms. All discharge instructions reviewed with patient and/or family. Voiced understanding. CELE BARRERA APRN May 07, 2019 16:00
[2019-05-07 16:12] LABS: BASOPHILS % (AUTO) 0 % (0-10); EOSINOPHILS % (AUTO) 0 % (0-10); HEMATOCRIT 40 % (35-52); HEMOGLOBIN 13.6 G/DL (11.5-16.0); LYMPHOCYTES # (AUTO) 0.9 X 10^3 (1.0-4.0); LYMPHOCYTES % (AUTO) 8 % (12-44); MEAN CORPUSCULAR HEMOGLOBIN 31 PG (25-34); MEAN CORPUSCULAR HGB CONC 34 G/DL (32-36); MEAN CORPUSCULAR VOLUME 91 FL (80-99); MEAN PLATELET VOLUME 10.4 FL (7.4-10.4); MONOCYTES # (AUTO) 0.5 X 10^3 (0.0-1.0); MONOCYTES % (AUTO) 5 % (0-12); NEUTROPHILS # (AUTO) 9.7 X 10^3 (1.8-7.8); NEUTROPHILS % (AUTO) 87 % (42-75); PLATELET COUNT 255 10^3/uL (130-400); RED CELL DISTRIBUTION WIDTH 12.9 % (10.0-14.5); WHITE BLOOD COUNT 11.1 10^3/uL (4.3-11.0)
[2019-05-07] MEDS ORDERED: fentaNYL INJECTION 100 MCG/2 ML AMP IVP PRN (16:15)
[2019-05-07 16:35] LABS: ALANINE AMINOTRANSFERASE 25 U/L (0-55); ALBUMIN 4.9 GM/DL (3.2-4.5); ALKALINE PHOSPHATASE 55 U/L (40-136); BILIRUBIN,TOTAL 0.6 MG/DL (0.1-1.0); BUN/CREATININE RATIO 15; CARBON DIOXIDE 25 MMOL/L (21-32); CHLORIDE 100 MMOL/L (98-107); CREATININE SERUM 1.67 MG/DL (0.60-1.30); GFR ESTIMATED 30; GLUCOSE 113 MG/DL (70-105); LIPASE 50 U/L (8-78); POTASSIUM 4.4 MMOL/L (3.6-5.0); SODIUM 137 MMOL/L (135-145); TOTAL PROTEIN 7.8 GM/DL (6.4-8.2)
[2019-05-07 16:37] LABS: BILIRUBIN,URINE NEGATIVE (NEGATIVE); CLARITY,URINE CLEAR; COLOR,URINE YELLOW; GLUCOSE, URINE (UA) NEGATIVE (NEGATIVE); KETONES,URINE NEGATIVE (NEGATIVE); LEUKOCYTE ESTERASE ,URINE NEGATIVE (NEGATIVE); NITRITE,URINE NEGATIVE (NEGATIVE); PROTEIN,URINE NEGATIVE (NEGATIVE)
[2019-05-07 16:42] LABS: CALCIUM 14.1 MG/DL (8.5-10.1)
[2019-05-07 16:52] LABS: NEUTROPHILS % (MANUAL) 89 %
[2019-05-07 16:53] LABS: LYMPHOCYTES % (MANUAL) 8 %; MONOCYTES % (MANUAL) 3 %; RBC MORPH NORMAL
[2019-05-07 17:01] LABS: RBC,URINE 0-2 /HPF; WBC,URINE 0-2 /HPF
[2019-05-07 17:06] LABS: AMORPHOUS SEDIMENT,UR MOD AMOR URATES /LPF; BACTERIA,URINE TRACE /HPF
[2019-05-07] MEDS ORDERED: NS IV 500 ML 500 ML IV SCH (17:15)
[2019-05-07] MEDS ORDERED: cloNIDine 0.1 MG (CATAPRES) TAB PO ONE (17:45)
--- NOTE | 2019-05-07 17:45 | Diagnostic Imaging Report ---
PROCEDURE: CT abdomen and pelvis without contrast. TECHNIQUE: Multiple contiguous axial images were obtained through the abdomen and pelvis without the use of intravenous contrast. Auto Exposure Controls were utilized during the CT exam to meet ALARA standards for radiation dose reduction. INDICATION: Weakness with emesis. COMPARISON: Comparison is made with study of 08/15/2014. FINDINGS: Unenhanced images of the liver and spleen reveal no focal abnormality. There is no evidence of gallbladder, pancreatic, or adrenal gland abnormality. Evaluation of the kidneys is limited without intravenous contrast; however, there is no evidence of stone, mass, or hydronephrosis. There is no evidence of free fluid within the abdomen or pelvis. No organized fluid collection is identified. There is no evidence of pathologic adenopathy. Images of the pelvis are somewhat limited due to artifact from right hip prosthesis. IMPRESSION: No evidence of acute abnormality or adverse change on the unenhanced CT study. Dictated by: Dictated on workstation # [id number]
[2019-05-07 19:22] VITALS: BP 155/76
--- NOTE | 2019-05-08 17:19 | NUR ---
LAB CALLED TO REPORT THAT CALCIUM WAS ELEVATED REPORT GIVEN TO Chayito HAMMOND APRN
== END 2019-05-07 19:31 | disposition home or self-care (01) ==
LOC: EDUNIT# 14:58 → ER 14:59
DX: E83.52 Hypercalcemia (principal); E86.9 Volume depletion, unspecified; I10 Essential (primary) hypertension; I48.91 Unspecified atrial fibrillation; E03.9 Hypothyroidism, unspecified; F41.9 Anxiety disorder, unspecified; F32.9 Major depressive disorder, single episode, unspecified; Z79.01 Long term (current) use of anticoagulants; Z79.82 Long term (current) use of aspirin
CPT/HCPCS: 36415; 74176; 80053; 81000; 82310; 82652; 83690; 83970; 84484; 85007; 85027; 93005

== ENCOUNTER → 2019-05-11 | Outpatient (CLI) | payer MEDICARE, OTHER ==
--- NOTE | 2019-05-11 15:35 | Diagnostic Imaging Report ---
EXAMINATION: MRI of the left shoulder without contrast dated 05/11/2019. TECHNIQUE: Multiplanar, multisequence non contrast-enhanced MRI of the left upper extremity was accomplished. INDICATION: Left shoulder pain. No known injury. FINDINGS: The subscapularis tendon is intact. Long head of the biceps tendon is intact and lies within the bicipital groove. The biceps tendon anchor is intact. The supraspinatus tendon demonstrates a full-thickness tear with a focal gap or area of retraction measuring almost 1 cm in transverse dimension. This involves essentially the entire supraspinatus tendon. The infraspinatus tendon contains abnormal signal intensity along its deep aspect consistent with partial-thickness articular sided tear. There is a small amount of fluid within the subdeltoid subacromial bursa. There is a small joint effusion in the glenohumeral joint. The labrum is grossly unremarkable on this noncontrast examination. There is mild atrophy of the supraspinatus muscle. Remaining musculature is well preserved. Visualized axilla is unremarkable. IMPRESSION: 1. Full-thickness tear of the supraspinatus tendon with a deep partial articular sided tear of the infraspinatus tendon. 2. Biceps tendon and subscapularis tendon intact. 3. Other findings as above. Dictated by: Dictated on workstation # [id number]
== END ==
LOC: RAD 13:09
PROVIDERS: ATTEND Nurse Practitioner Family
DX: S46.812A Strain of other muscles, fascia and tendons at shoulder and upper arm level, left arm, initial encounter (principal)
CPT/HCPCS: 73221

== ENCOUNTER 2019-05-20 16:22 | Observation (INO) | payer MEDICARE, OTHER ==
[~2019-05-20] VITALS: Ht 170.2 cm; Wt 60.7 kg
--- NOTE | 2019-05-20 16:37 | ED Fall/Injury ---
General Chief Complaint: Trauma-Non Activation Stated Complaint: FALL Nursing Triage Note: was walking to get the mail when she fell and hit her lip and R eye Source: patient Exam Limitations: no limitations History of Present Illness Date Seen by Provider: May 20, 2019 Time Seen by Provider: 16:35 Initial Comments was walking to get the mail when she fell after she tripped over some sort of a storm drain. She does not recall the fall. No neck pain. Location Injury Occurred: street Occurred: just prior to arrival Severity: moderate Associated Symptoms (Fall): Denies Symptoms Allergies and Home Medications Allergies Coded Allergies: No Known Drug Allergies (Unverified , 03/14/16) Home Medications Apixaban 5 Mg Tablet, 5 MG PO BID, (Reported) Aspirin 81 Mg Tablet.dr, 81 MG PO HS, (Reported) Calcium Carbonate/Vitamin D3 1 Each Tablet, 1 EACH PO DAILY, (Reported) Divalproex Sodium 250 Mg Tab.er.24h, 250 MG PO HS, (Reported) Flecainide Acetate 100 Mg Tablet, 100 MG PO BID, (Reported) Fluoxetine HCl 40 Mg Capsule, 40 MG PO DAILY, (Reported) Levothyroxine Sodium 100 Mcg Tablet, 100 MCG PO DAILY, (Reported) Lisinopril 40 Mg Tablet, 40 MG PO DAILY, (Reported) Multivit-Min/FA/Lycopene/Lut 1 Each Tablet, 1 EACH PO DAILY, (Reported) Naproxen 500 Mg Tablet.dr, 500 MG PO Q12H PRN for BACK PAIN, (Reported) Omeprazole 40 Mg Capsule.dr, 40 MG PO DAILY, (Reported) Simvastatin 40 Mg Tablet, 40 MG PO HS, (Reported) Patient Home Medication List Home Medication List Reviewed: Yes Review of Systems Review of Systems Constitutional: see HPI Eyes: See HPI Ears, Nose, Mouth, Throat: no symptoms reported Respiratory: no symptoms reported Cardiovascular: no symptoms reported Genitourinary: no symptoms reported Musculoskeletal: no symptoms reported Skin: no symptoms reported Psychiatric/Neurological: No Symptoms Reported Past Vrsrojc-Vupmua-Ldisrx Hx Patient Social History Alcohol Use: Denies Use Recreational Drug Use: No Type Used: Cigarettes Former Smoker, Quit: Mar 14, 2000 2nd Hand Smoke Exposure: No Recent Foreign Travel: No Contact w/Someone Who Travel: No Recent Infectious Disease Expo: No Recent Hopitalizations: No Immunizations Up To Date Tetanus Booster (TDap): Less than 5yrs Date of Pneumonia Vaccine: Mar 14, 2015 Date of Influenza Vaccine: Jan 08, 2016 Seasonal Allergies Seasonal Allergies: No Past Medical History Surgeries: Yes (R hip replaced) Hysterectomy, Joint Replacement, Orthopedic, Tonsillectomy, Tubal Ligation Respiratory: No Sleep Apnea Currently Using CPAP: No Cardiac: Yes Atrial Fibrillation, Hypertension Neurological: No 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 Sexually Transmitted Disease: No HIV/AIDS: No Genitourinary: No Gastrointestinal: Yes Polyps Musculoskeletal: Yes Arthritis, Chronic Back Pain Endocrine: Yes Hypothyroidsim Cataract Loss of Vision: Bilateral Hearing Impairment: Denies Cancer: No Did You Recieve Any Treatments: No Psychosocial: Yes Anxiety, Depression Integumentary: No Blood Disorders: No (iron def anemia) Adverse Reaction/Blood Tranf: No (N/A) Family Medical History Colon cancer Physical Exam Vital Signs Vital Signs - First Documented 05/20/19 16:24 Temp 36.0 Pulse 80 Resp 18 B/P (MAP) 195/102 (133) Capillary Refill : Less Than 3 Seconds Height, Weight, BMI Height: 5'6.00" Weight: 135lbs. 0.0oz. 61.674843tf; 21.00 BMI Method:Stated General Appearance: WD/WN, no apparent distress HEENT: PERRL/EOMI, normal ENT inspection, TMs normal, other (significant swelling to the right cheek. There is a large medial right thigh subconjunctival hemorrhage. There is no hyphema. PERRLA.) Neck: non-tender, full range of motion Respiratory: no respiratory distress, no accessory muscle use Gastrointestinal: normal bowel sounds, soft Neurologic/Psychiatric: alert, normal mood/affect Skin: normal color, warm/dry Progress/Results/Core Measures Results/Orders My Orders Orders - CELE BARRERA APRN Ct Head/Face/Cervical Wo (05/20/19 16:31) Vital Signs/I&O 05/20/19 05/20/19 16:24 16:33 Temp 36.0 36.0 Pulse 80 80 Resp 18 18 B/P (MAP) 195/102 (133) 195/102 (133) Blood Pressure Mean: 133 Diagnostic Imaging Diagonstic Imaging: CT Comments NAME: NAM KEN [facility] REC#: [id number] PT STATUS: REG ER : 1950 PHYSICIAN: CELE BARRERA APRN ADMIT DATE: 05/20/19/ER Draft Date of Exam:05/20/19 CT HEAD/FACE/CERVICAL WO PROCEDURE: CT head, face, and cervical spine without contrast. TECHNIQUE: Multiple contiguous axial images were obtained through the head, neck, and facial bones without the use of intravenous contrast. Sagittal and coronal reformations through the cervical spine and facial bones were also performed. Auto Exposure Controls were utilized during the CT exam to meet ALARA standards for radiation dose reduction. DATE: May 20, 2019. COMPARISON: MRI cervical spine April 26, 2019. CT head and maxillofacial area August 03, 2015. INDICATION: 68-year-old female, head, facial, neck pain. FINDINGS: There is no identified skull fracture. There is proportional prominence of the ventricles and CSF spaces consistent with mild cerebral volume loss. There is no mass effect or midline shift. There is no acute intracranial hemorrhage. There is no abnormal extra-axial fluid collection. The visualized portions of the mastoid air cells and middle ears are well-aerated. The temporomandibular joints are normally aligned. The mandible is intact. There are mildly displaced fractures of the base of the right nasal bones. There is a small amount of fluid layering in the right maxillary sinus. There is no clearly identified maxillary wall fracture on the right. There is no otherwise identified acute maxillofacial bone fracture. The additional paranasal sinuses are well aerated. The globes are grossly intact. There is no retro-orbital hematoma. There is abnormal soft tissue attenuation in the right cheek most likely relating to hematoma with adjacent inflammatory stranding. There are bilateral temporomandibular arthritic changes. There is reversal of the normal cervical lordosis. There is grade 1 anterolisthesis of C3 on C4. There is arthritis at the C1-C2 articulation. There is a bone erosion of the posterior aspect of C2. There are disc degenerative changes most notable at C5-C6 and C6-C7. There are multilevel facet degenerative changes of the cervical spine. There is no identified facet joint subluxation or dislocation. There is no asymmetric widening of the cervical disc spaces. There is no prominent prevertebral soft tissue swelling. There is no identified acute fracture of the cervical spine. The visualized portions of the lung apices are clear. There are findings of emphysema. IMPRESSION: 1. Acute mildly displaced comminuted fracture involving the base of the right nasal bone. 2. Small amount of fluid layering in the right maxillary sinus without clearly identified right maxillary sinus wall fracture. 3. No identified acute intracranial abnormality. 4. Mild cerebral volume loss. 5. No identified acute post traumatic abnormality of the cervical spine. 6. Multifocal degenerative changes of the cervical spine as well as temporomandibular arthritis, bilaterally. Rheumatoid arthritis would be in the differential diagnosis. Dictated on workstation # [id number] Dict: 05/20/191701 Trans: 05/20/191715 PJE [id number] Interpreted by: JERZY BURNS MD Electronically signed by: Departure Communication (Admissions) Time/Spoke to Admitting Phy: 17:31 She is alert and oriented with GCS of 15 but cannot recall at happen, given the head injury and the use of oral anticoagulants, we will admit for observation and neuro checks. Spoke with Dr. Valera, agrees to admit, consult family medicine given the comorbidities. She takes oral anticoagulation for atrial fibrillation. Spoke with Dr. He, she'll see the patient in the morning. Patient states her tetanus is up-to-date. She states that her vision of the right eye is unaffected and not blurry. Impression Primary Impression: CHI (closed head injury) Additional Impressions: On continuous oral anticoagulation Subconjunctival hematoma Nasal bone fracture Disposition: HOME, SELF-CARE Condition: Stable Admissions Decision to Admit Reason: Admit from ER (Trauma) Decision to Admit/Date: May 20, 2019 Time/Decision to Admit Time: 17:32 Departure-Patient Inst. Referrals: LALITA HE MD (PCP/Family) Primary Care Physician CELE BARRERA APRN May 20, 2019 16:36
--- NOTE | 2019-05-20 17:17 | Diagnostic Imaging Report ---
PROCEDURE: CT head, face, and cervical spine without contrast. TECHNIQUE: Multiple contiguous axial images were obtained through the head, neck, and facial bones without the use of intravenous contrast. Sagittal and coronal reformations through the cervical spine and facial bones were also performed. Auto Exposure Controls were utilized during the CT exam to meet ALARA standards for radiation dose reduction. DATE: May 20, 2019. COMPARISON: MRI cervical spine April 26, 2019. CT head and maxillofacial area August 03, 2015. INDICATION: 68-year-old female, head, facial, neck pain. FINDINGS: There is no identified skull fracture. There is proportional prominence of the ventricles and CSF spaces consistent with mild cerebral volume loss. There is no mass effect or midline shift. There is no acute intracranial hemorrhage. There is no abnormal extra-axial fluid collection. The visualized portions of the mastoid air cells and middle ears are well-aerated. The temporomandibular joints are normally aligned. The mandible is intact. There are mildly displaced fractures of the base of the right nasal bones. There is a small amount of fluid layering in the right maxillary sinus. There is no clearly identified maxillary wall fracture on the right. There is no otherwise identified acute maxillofacial bone fracture. The additional paranasal sinuses are well aerated. The globes are grossly intact. There is no retro-orbital hematoma. There is abnormal soft tissue attenuation in the right cheek most likely relating to hematoma with adjacent inflammatory stranding. There are bilateral temporomandibular arthritic changes. There is reversal of the normal cervical lordosis. There is grade 1 anterolisthesis of C3 on C4. There is arthritis at the C1-C2 articulation. There is a bone erosion of the posterior aspect of C2. There are disc degenerative changes most notable at C5-C6 and C6-C7. There are multilevel facet degenerative changes of the cervical spine. There is no identified facet joint subluxation or dislocation. There is no asymmetric widening of the cervical disc spaces. There is no prominent prevertebral soft tissue swelling. There is no identified acute fracture of the cervical spine. The visualized portions of the lung apices are clear. There are findings of emphysema. IMPRESSION: 1. Acute mildly displaced comminuted fracture involving the base of the right nasal bone. 2. Small amount of fluid layering in the right maxillary sinus without clearly identified right maxillary sinus wall fracture. 3. No identified acute intracranial abnormality. 4. Mild cerebral volume loss. 5. No identified acute post traumatic abnormality of the cervical spine. 6. Multifocal degenerative changes of the cervical spine as well as temporomandibular arthritis, bilaterally. Rheumatoid arthritis would be in the differential diagnosis. Dictated by: Dictated on workstation # [id number]
[2019-05-20 18:20] VITALS: BP 189/87
--- NOTE | 2019-05-20 18:23 | NUR ---
PT ARRIVED TO ROOM, CALL LIGHT IN REACH, BED RAILS X4, PT DENIES NEEDS AT THIS TIME, WILL CONTINUE TO MONITOR.
[2019-05-20] MEDS ORDERED: CATHETER FLUSH 10 ML SYR IV PRN (18:45)
[2019-05-20] MEDS ORDERED: OXYMETAZOLINE (AFRIN) 0.05% NA 30 ML BTL PRN (18:45)
--- NOTE | 2019-05-20 19:30 | NUR ---
[facility] informed this RN that pt BP is 189/87 and she was in pain. Notified Dr. He as there were no orders for the pt yet. Received orders for Metoprolol Tartrate 25mg BID and Fentanyl 25mcg q1h PRN for pain. Will execute orders and monitor.
--- NOTE | 2019-05-20 19:30 | NUR ---
PCT informed this RN that pt BP is 189/87 and she was in pain. Notified Dr. He as there were no orders for the pt yet. Received orders for Metoprolol Tartrate 25mg BID and Fentanyl 25mcg q1h for
[2019-05-20] MEDS ORDERED: fentaNYL INJECTION 100 MCG/2 ML AMP IVP PRN (19:45)
[2019-05-20 20:00] VITALS: BP 190/86
[2019-05-20] MEDS: AMOXICILLIN 500 MG (POLYMOX) CAP PO SCH (20:25)
[2019-05-20] MEDS: meTOprolol TARTRATE 25 MG (LOPRESSOR) TABLET PO SCH (20:28)
--- NOTE | 2019-05-20 22:05 | NUR ---
Pt is requesting a medication for sleep and anxiety. She states that she normally takes Xanax at home. Notified Dr. He and received orders for Xanax 0.5mg PRN. Will follow orders.
[2019-05-20] MEDS: CATHETER FLUSH 10 ML SYR IV SCH (22:13)
[2019-05-20] MEDS ORDERED: ALPRAZolam 0.5 MG (XANAX) TAB PO PRN (22:15)
--- NOTE | 2019-05-20 22:58 | History & Physical-Surgical ---
History of Present Illness History of Present Illness Reason for visit/HPI Seen and evaluated in ED CC: Fall Patient is a 68 year old female on Eliquis who was waking and hit some type of screw in grate in sidewalk and fell foward landing on right side of f laura. Her friend does not believe she had any loss of consciousness. Patient does not recall events of fall. Her friend went to and called 911. Patient with swelling to the right cheek and has right subconjunctival hemorrhage. Patient is on Eliquis. Patient denies any pain besides right side of face. Has small tear on upper lip with slight oozing of blood. Her GCS 15. Denies n/v fever sweats chills shortness of breath or chest pain. Date of Admission May 20, 2019 at 17:29 Date Seen by a Provider: May 20, 2019 Time Seen by a Provider: 17:30 I consulted on this patient on 05/20/19 17:30 Attending Physician Jose Guadalupe Valera DO Admitting Physician Lalita He MD Consult Allergies and Home Medications Allergies Coded Allergies: No Known Drug Allergies (Unverified , 03/14/16) Home Medications Amoxicillin 500 Mg Capsule, 500 MG PO Q8HR Prescribed by: LALITA HE on 05/21/19 1024 Apixaban 5 Mg Tablet, 5 MG PO BID restart eliquis on 05/22/2019 Prescribed by: LALITA HE on 05/21/19 1024 Aspirin 81 Mg Tablet., 81 MG PO HS restart aspirin on 05/23/2019 Prescribed by: LALITA HE on 05/21/19 1024 Calcium Carbonate/Vitamin D3 1 Each Tablet, 1 EACH PO DAILY, (Reported) Divalproex Sodium 250 Mg Tab.er.24h, 250 MG PO HS, (Reported) Flecainide Acetate 100 Mg Tablet, 100 MG PO BID, (Reported) Fluoxetine HCl 40 Mg Capsule, 40 MG PO DAILY, (Reported) Levothyroxine Sodium 100 Mcg Tablet, 100 MCG PO DAILY, (Reported) Lisinopril 40 Mg Tablet, 40 MG PO DAILY, (Reported) Multivit-Min/FA/Lycopene/Lut 1 Each Tablet, 1 EACH PO DAILY, (Reported) Naproxen 500 Mg Tablet., 500 MG PO Q12H PRN for BACK PAIN, (Reported) Omeprazole 40 Mg Capsule.dr, 40 MG PO DAILY, (Reported) Simvastatin 40 Mg Tablet, 40 MG PO HS, (Reported) Patient Home Medication List Home Medication List Reviewed: Yes Past Knvjzow-Wzuzxj-Lndjge Hx Patient Social History Alcohol Use: Denies Use Recreational Drug Use: No Former Smoker, Quit: Mar 14, 2000 Type Used: Cigarettes 2nd Hand Smoke Exposure: No Recent Foreign Travel: No Contact w/Someone Who Travel: No Recent Infectious Disease Expo: No Recent Hopitalizations: No Physical Abuse Screen: No Sexual Abuse: No Immunizations Up To Date Tetanus Booster (TDap): Less than 5yrs Date of Pneumonia Vaccine: Mar 14, 2015 Date of Influenza Vaccine: Jan 08, 2016 Seasonal Allergies Seasonal Allergies: No Surgeries History of Surgeries: Yes (R hip replaced) Surgeries: Hysterectomy, Joint Replacement, Orthopedic, Tonsillectomy, Tubal Ligation Respiratory History of Respiratory Disorde: No Respiratory Disorders: Sleep Apnea Cardiovascular History of Cardiac Disorders: Yes Cardiac Disorders: Atrial Fibrillation, Hypertension Neurological History of Neurological Disord: No Reproductive System Hx Reproductive Disorders: No Sexually Transmitted Disease: No 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 Genitourinary History of Genitourinary Disor: No Gastrointestinal History of Gastrointestinal Di: Yes Gastrointestinal Disorders: Polyps Musculoskeletal History of Musculoskeletal Dis: Yes Musculoskeletal Disorders: Arthritis, Chronic Back Pain Endocrine History of Endocrine Disorders: Yes Endocrine Disorders: Hypothyroidsim HEENT HEENT Disorders: Cataract Loss of Vision: Bilateral Hearing Impairment: Denies Cancer History of Cancer: No Psychosocial History of Psychiatric Problem: Yes Behavioral Health Disorders: Anxiety, Depression Integumentary History of Skin or Integumenta: No Blood Transfusions History of Blood Disorders: No (iron def anemia) Adverse Reaction to a Blood Tr: No (N/A) Reviewed Nursing Assessment Reviewed/Agree w Nursing PMH: Yes Family Medical History Significant Family History: No Pertinent Family Hx Family Medial History: Colon cancer Review of Systems Constitutional: No weakness, No weight loss EENTM: see HPI Respiratory: No cough, No short of breath Cardiovascular: No chest pain, No edema Gastrointestinal: no symptoms reported Genitourinary: No dysuria, No hematuria Musculoskeletal: No no symptoms reported, No back pain, No joint pain Skin: other (swelling right cheek, abrasion upper lip) Psychiatric/Neurological: Denies Anxiety, Denies Depressed, Denies Emotional Problems Physical Exam Vital Signs Vital Signs - First Documented 05/20/19 05/20/19 05/20/19 16:24 18:12 18:20 Temp 36.0 Pulse 80 Resp 18 B/P (MAP) 195/102 (133) Pulse Ox 96 O2 Delivery Room Air Capillary Refill : Less Than 3 Seconds Height, Weight, BMI Height: 5'6.00" Weight: 135lbs. 0.0oz. [id number]; 19.95 BMI Method:Stated General Appearance: No Apparent Distress, WD/WN, Other (GCS 15) HEENT: PERRL/EOMI, Other (right cheek swelling and tenderness. right eye subconjunctival hemorrhage, upper lip abrasion) Neck: Normal Inspection, Non Tender, Supple Respiratory: Chest Non Tender, No Accessory Muscle Use, No Respiratory Distress Cardiovascular: Regular Rate, Rhythm, Normal Peripheral Pulses Gastrointestinal: No Organomegaly, No Pulsatile Mass, Non Tender Rectal: Deferred Back: No CVA Tenderness, No Vertebral Tenderness Extremity: Normal Inspection, Normal Range of Motion, Non Tender Neurologic/Psychiatric: Alert, Oriented x3, No Motor/Sensory Deficits, Normal Mood/Affect, bobbin sorter II-XII Norm as Tested Skin: Normal Color, Other (swelling right cheek and abrasion upper lip) Lymphatic: No Adenopathy Assessment/Plan Assessment/Plan Admission Diagonsis fall from standing closed head injury on Eliquis mildly displace comminuted fx of right nasal bone right subconjunctival hemorrhage neuro checks if change in neurological status will repeat head ct hold anticoagulation pain control Dr. He consulted for medical mangement. No surgical intervention needed at this time Her c spine has already been cleared. Reviewed CT head and cspine and maxillofacial Admission Status: Observation Assessment/Plan fall from standing closed head injury on Eliquis mildly displace comminuted fx of right nasal bone right subconjunctival hemorrhage neuro checks if change in neurological status will repeat head ct hold anticoagulation pain control Dr. He consulted for medical mangement. No surgical intervention needed at this time Her c spine has already been cleared. Reviewed CT head, cspine and maxillofacial Discussed finding and plan with patient and family and they agree JOSE GUADALUPE VALERA DO May 20, 2019 22:58
[2019-05-21] VITALS: BP 180/77
[2019-05-21 04:00] VITALS: BP 183/85
--- NOTE | 2019-05-21 04:30 | NUR ---
0400 - PCT found pt standing near the window. PCT asked the pt what she was doing and pt replied that she had no idea how she got there. PCT took her back to bed and set the bed alarm on. 5 - PCT took her Vital Signs: T = 36.8; NC = 58; RR=20; 02 sat = 97 on room air; BP = 188/85. 0410 - Notified Dr. He about pt blood pressure and concerns about patient's increasing confusion and anxiety. Received orders for Hydralazine 10mg PO once and Stat CT without contrast. Executed orders. 0430 - Notified Dr. Valera of pt's current status and pending orders. Dr. Valera told this RN to make sure that the CT is done stat.
--- NOTE | 2019-05-21 06:01 | Diagnostic Imaging Report ---
PROCEDURE: CT head without contrast. TECHNIQUE: Multiple contiguous axial images were obtained through the brain without the use of intravenous contrast. Auto Exposure Controls were utilized during the CT exam to meet ALARA standards for radiation dose reduction. INDICATION: Altered mental status, recent fall. Subconjunctival hematoma. COMPARISON: None FINDINGS: There are diffuse atrophic changes with prominence of the ventricles and sulci. There are scattered areas of decreased attenuation, nonspecific but likely changes of chronic small vessel ischemic disease. There is otherwise normal decker-white differentiation. No abnormal areas of attenuation to suggest edema from ischemia. There is no midline shift or mass effect. No evidence for acute intracranial hemorrhage or abnormal extra-axial fluid collection. Bony calvarium is intact. Paranasal sinuses demonstrate trace fluid right maxillary sinus. Mastoid air cells also appear clear. Asymmetric right maxillofacial edema is present. Globes appearing symmetric as visualized on this study. IMPRESSION: 1. No CT evidence for acute intracranial abnormality. 2. Age-related atrophic changes with changes of small vessel ischemic disease. 3. Right maxillofacial edema. Small air-fluid level right maxillary sinus, appearing generally stable from imaging performed one day earlier. A preliminary report was provided by [facility]. Dictated by: Dictated on workstation # [id number]
[2019-05-21] MEDS: AMOXICILLIN 500 MG (POLYMOX) CAP PO SCH (06:23)
[2019-05-21] MEDS: CATHETER FLUSH 10 ML SYR IV SCH (06:23)
[2019-05-21 06:30] VITALS: BP 150/75
[2019-05-21 08:00] VITALS: BP 129/75
[2019-05-21] MEDS: meTOprolol TARTRATE 25 MG (LOPRESSOR) TABLET PO SCH (09:01)
--- NOTE | 2019-05-21 10:08 | Consultation ---
History of Present Illness History of Present Illness Patient Consulted On(constanza/time) 05/21/19 10:08 Date Seen by Provider: May 21, 2019 Time Seen by Provider: 08:40 Allergies and Home Medications Allergies Coded Allergies: No Known Drug Allergies (Unverified , 03/14/16) Home Medications Apixaban 5 Mg Tablet, 5 MG PO BID, (Reported) Aspirin 81 Mg Tablet.dr, 81 MG PO HS, (Reported) Calcium Carbonate/Vitamin D3 1 Each Tablet, 1 EACH PO DAILY, (Reported) Divalproex Sodium 250 Mg Tab.er.24h, 250 MG PO HS, (Reported) Flecainide Acetate 100 Mg Tablet, 100 MG PO BID, (Reported) Fluoxetine HCl 40 Mg Capsule, 40 MG PO DAILY, (Reported) Levothyroxine Sodium 100 Mcg Tablet, 100 MCG PO DAILY, (Reported) Lisinopril 40 Mg Tablet, 40 MG PO DAILY, (Reported) Multivit-Min/FA/Lycopene/Lut 1 Each Tablet, 1 EACH PO DAILY, (Reported) Naproxen 500 Mg Tablet.dr, 500 MG PO Q12H PRN for BACK PAIN, (Reported) Omeprazole 40 Mg Capsule.dr, 40 MG PO DAILY, (Reported) Simvastatin 40 Mg Tablet, 40 MG PO HS, (Reported) Past Hiiygkv-Fdfyal-Dfjpdw Hx Patient Social History Alcohol Use: Denies Use Recreational Drug Use: No Type Used: Cigarettes Former Smoker, Quit: Mar 14, 2000 2nd Hand Smoke Exposure: No Recent Foreign Travel: No Contact w/Someone Who Travel: No Recent Infectious Disease Expo: No Recent Hopitalizations: No Physical Abuse: No Sexual Abuse: No Mistreated: No Fear: No Immunizations Up To Date Tetanus Booster (TDap): Less than 5yrs Date of Pneumonia Vaccine: Mar 14, 2015 Date of Influenza Vaccine: Jan 08, 2016 Seasonal Allergies Seasonal Allergies: No Past Medical History Surgeries: Yes (R hip replaced) Hysterectomy, Joint Replacement, Orthopedic, Tonsillectomy, Tubal Ligation Respiratory: No Sleep Apnea Currently Using CPAP: No Cardiac: Yes Atrial Fibrillation, Hypertension Neurological: No 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 Sexually Transmitted Disease: No HIV/AIDS: No Genitourinary: No Gastrointestinal: Yes Polyps Musculoskeletal: Yes Arthritis, Chronic Back Pain Endocrine: Yes Hypothyroidsim Cataract Loss of Vision: Bilateral Hearing Impairment: Denies Cancer: No Did You Recieve Any Treatments: No Psychosocial: Yes Anxiety, Depression Integumentary: No Blood Disorders: No (iron def anemia) Adverse Reaction/Blood Tranf: No (N/A) Family Medical History Colon cancer No Pertinent Family Hx Physical Exam Vital Signs Vital Signs - First Documented 05/20/19 05/20/19 05/20/19 16:24 18:12 18:20 Temp 36.0 Pulse 80 Resp 18 B/P (MAP) 195/102 (133) Pulse Ox 96 O2 Delivery Room Air Capillary Refill : Less Than 3 Seconds Height, Weight, BMI Height: 5'6.00" Weight: 135lbs. 0.0oz. 61.428143ss; 19.95 BMI Method:Stated LALITA LEE MD May 21, 2019 10:08
[2019-05-21] MEDS ORDERED: AMOX500C2 PO (10:24)
[2019-05-21] MEDS ORDERED: APIX5TAB PO (10:24)
[2019-05-21] MEDS ORDERED: ASPI81TA16 PO (10:24)
--- NOTE | 2019-05-21 10:28 | Discharge Inst-Simple/Standard ---
Discharge Inst-Standard Reconcile Patient Problems Problems Reviewed?: Yes Discharge Medications New, Converted or Re-Newed RX: Other Patient Instructions/Follow Up Plan of Care/Instructions/FU: 1 wk follow up with [address]. ramos Activity as Tolerated: Yes Discharge Diet: Regular Diet Return to The Hospital For: any concern for worsening pain, worsening confusion, chest pain, shortness of breath or lifethreatening illness/injury Medication List: Active Scripts Active Amoxicillin 500 Mg Capsule 500 Mg PO Q8HR Eliquis (Apixaban) 5 Mg Tablet 5 Mg PO BID restart eliquis on 05/22/2019 Low Dose Aspirin EC (Aspirin) 81 Mg Tablet. 81 Mg PO HS restart aspirin on 05/23/2019 Reported Divalproex Sodium ER (Divalproex Sodium) 250 Mg Tab.er.24h 250 Mg PO HS Fluoxetine HCl 40 Mg Capsule 40 Mg PO DAILY Levothyroxine Sodium 100 Mcg Tablet 100 Mcg PO DAILY Calcium 600 + Vit D Caplet (Calcium Carbonate/Vitamin D3) 1 Each Tablet 1 Each PO DAILY Senior Tabs (Multivit-Min/FA/Lycopene/Lut) 1 Each Tablet 1 Each PO DAILY Naproxen 500 Mg Tablet. 500 Mg PO Q12H PRN Simvastatin 40 Mg Tablet 40 Mg PO HS Lisinopril 40 Mg Tablet 40 Mg PO DAILY Omeprazole 40 Mg Capsule. 40 Mg PO DAILY Flecainide Acetate 100 Mg Tablet 100 Mg PO BID My orders: Orders - LALITA RAMOS MD Fentanyl Injection (Sublimaze Injection (05/20/19 19:45) Metoprolol Tartrate (Ir) Tab (Lopressor (05/20/19 21:00) Alprazolam Tablet (Xanax Tablet) (05/20/19 22:15) Hydralazine Tablet (Apresoline Tablet) (05/21/19 04:15) Ct Head Wo (05/21/19 04:20) Hydralazine Tablet (Apresoline Tablet) (05/21/19 04:21) Attending Discharge Inpt/Inobs (05/21/19 10:25) Ambulate 08,12,20 (05/21/19 10:26) Sequential Compression Device Q4H (05/21/19 10:26) Dvt/Vte Risk - Notifiy Physici Q4H (05/21/19 10:26) LALITA RAMOS MD May 21, 2019 10:28
--- NOTE | 2019-05-21 11:08 | Progress Note - Surgery ---
[facility] 05/21/19 1108: Subjective Date Seen by a Provider: May 21, 2019 Time Seen by a Provider: 10:35 Subjective/Events-last exam pt sitting up in bed, conversing with her friend. Reports she is sore "all over". Other than mild PEREZ, she denies any other sx at this time. Review of Systems General: No Chills, No Fatigue HEENT: Head Aches; No Visual Changes Pulmonary: No Dyspnea, No Cough Cardiovascular: No: Chest Pain, Palpitations Gastrointestinal: No: Nausea, Vomiting, Abdominal Pain, Diarrhea, Constipation Musculoskeletal: other ("sore all over") Objective Exam Vital Signs Date Time Temp Pulse Resp B/P (MAP) Pulse Ox O2 Delivery O2 Flow Rate FiO2 05/21/19 08:03 Room Air 05/21/19 08:00 37.0 59 18 129/75 (93) 99 Room Air 05/21/19 06:30 150/75 (100) 05/21/19 04:00 36.8 58 20 183/85 (117) 97 Room Air 05/21/19 00:00 36.5 56 20 180/77 (111) 98 Room Air 05/20/19 20:00 37.2 67 20 190/86 (120) 99 Room Air 05/20/19 20:00 Room Air 05/20/19 18:20 37.2 65 20 189/87 99 Room Air 05/20/19 18:12 36.0 80 18 195/102 (133) 96 05/20/19 16:33 36.0 80 18 195/102 (133) 05/20/19 16:24 36.0 80 18 195/102 (133) I & O 05/21/19 07:00 Intake Total 100 ml Balance 100 ml Capillary Refill : Less Than 3 Seconds General Appearance: No Apparent Distress, WD/WN, Other (GCS 15) HEENT: PERRL/EOMI, Other (right cheek swelling and tenderness. right eye subconjunctival hemorrhage, upper lip abrasion) Neck: Normal Inspection, Non Tender, Supple Respiratory: Chest Non Tender, No Accessory Muscle Use, No Respiratory Distress Cardiovascular: Regular Rate, Rhythm, No Edema, Normal Peripheral Pulses Gastrointestinal: normal bowel sounds, soft Extremity: Normal Inspection, Normal Range of Motion, Non Tender, No Pedal Edema Neurologic/Psychiatric: Alert, Oriented x3, No Motor/Sensory Deficits, Normal Mood/Affect, supervisor functional testing II-XII Norm as Tested Skin: Normal Color, Other (swelling right cheek and abrasion upper lip, no bruising to abd) Lymphatic: No Adenopathy Assessment/Plan Assessment/Plan Assessment/Plan fall from standing closed head injury on Eliquis mildly displace comminuted fx of right nasal bone right subconjunctival hemorrhage Repeat head ct showed no evidence of acute intracranial abnormality, showed R maxillofacial edema w/ Small air-fluid level in right maxillary sinus, appearing generally stable from imaging performed one day earlier. hold anticoagulation, SCD in place pain control No surgical intervention needed at this time, Clear from surgical stand-point for d/c Plan for d/c today per Dr. He f/u w/ Dr. Soto regarding anticoagulation Clinical Quality Measures DVT/VTE Risk/Contraindication: Risk Factor Score Per Nursin RFS Level Per Nursing on Admit: 4+=Very High JOSE GUADALUPE LOUIS DO 05/22/19 1404: Subjective Subjective/Events-last exam Patient with some confusion overnight. Had repeat ct head which negative for bleed. No new complaints. Currently at baseline. Sore all over from fall. No visual changes or neurological deficits. Denies n/v fever sweats chills shortness of breath or chest pain. Objective Exam General Appearance: No Apparent Distress HEENT: PERRL/EOMI, Other (right cheek swelling and tenderness. right eye subconjunctival hemorrhage, upper lip abrasion) Neck: Normal Inspection, Non Tender, Supple Respiratory: Chest Non Tender, No Accessory Muscle Use, No Respiratory Distress Cardiovascular: Regular Rate, Rhythm, No Edema Gastrointestinal: normal bowel sounds, non tender, soft Extremity: Normal Inspection, Normal Range of Motion, Non Tender Neurologic/Psychiatric: Alert, Oriented x3, No Motor/Sensory Deficits, Normal Mood/Affect, supervisor functional testing II-XII Norm as Tested Skin: Warm/Dry, Other (swelling/echymosis right cheek and abrasion upper lip, ) Lymphatic: No Adenopathy Assessment/Plan Assessment/Plan Assessment/Plan fall from standing closed head injury on Eliquis mildly displace comminuted fx of right nasal bone right subconjunctival hemorrhage patient repeat ct head unchanged no general surgical issues neuro intact likely home today. discussed if any change in condition needs to be re-evaluated at that time. Supervisory-Addendum Brief Verification & Attestation Participated in pt care: history, MDM, physical Personally performed: exam, history, MDM, supervision of care Care discussed with: Medical Student Procedures: n/a Results interpretation: Verified all documentation Verification and Attestation of Medical Student E/M Service A medical student performed and documented this service in my presence. I reviewed and verified all information documented by the medical student and made modifications to such information, when appropriate. I personally performed the physical exam and medical decision making. Jose Guadalupe Louis, May 21, 2019,14:03 [facility] May 21, 2019 11:08 JOSE GUADALUPE LOUIS DO May 22, 2019 14:04
[2019-05-21 12:00] VITALS: BP 120/74
[2019-05-21 13:30] VITALS: BP 120/74
== END 2019-05-21 13:30 | disposition home or self-care (01) ==
LOC: EDUNIT# 16:22 → ER 16:23 → 4TH 17:29
PROVIDERS: ADMIT Surgery; ATTEND Surgery
DX: S09.90XA Unspecified injury of head, initial encounter (principal); S02.2XXA Fracture of nasal bones, initial encounter for closed fracture; S05.10XA Contusion of eyeball and orbital tissues, unspecified eye, initial encounter; I48.91 Unspecified atrial fibrillation; M19.90 Unspecified osteoarthritis, unspecified site; G89.29 Other chronic pain; M54.9 Dorsalgia, unspecified; E03.9 Hypothyroidism, unspecified; F32.9 Major depressive disorder, single episode, unspecified; F41.9 Anxiety disorder, unspecified; W01.0XXA Fall on same level from slipping, tripping and stumbling without subsequent striking against object, initial encounter; Z79.82 Long term (current) use of aspirin; Z79.899 Other long term (current) drug therapy; Z90.710 Acquired absence of both cervix and uterus; Z90.89 Acquired absence of other organs; Z79.01 Long term (current) use of anticoagulants
CPT/HCPCS: 70450; 70486; 72125; G0378

== ENCOUNTER 2019-09-13 05:40 | Outpatient (RCR) | payer MEDICARE, OTHER ==
[~2019-09-13] VITALS: Ht 165.1 cm; Wt 56.4 kg
[~2019-09-13 05:40] MED LIST changes: +ALPR0.25 PO; +AMOX500C2 PO; +BUPR150T9 PO; +LISI10TA2 PO; +TRAM50TA3 PO
== END 2019-09-13 15:08 | disposition home or self-care (01) ==
LOC: PREOP 05:40
PROVIDERS: ATTEND Orthopaedic Surgery
DX: Z01.818 Encounter for other preprocedural examination (principal); Z11.59 Encounter for screening for other viral diseases
CPT/HCPCS: 87635

== ENCOUNTER 2019-09-15 07:57 | Day surgery (SDC) | payer MEDICARE, OTHER ==
--- NOTE | 2019-09-05 16:00 | HISTORY AND PHYSICAL ---
DATE OF SERVICE: DATE OF ADMISSION: 09/15/2019. This will be for outpatient surgery on 09/15/2019 for left shoulder rotator cuff repair. HISTORY OF PRESENT ILLNESS: The patient is a 68-year-old right hand dominant female with complaints of prolonged history of left shoulder pain and weakness. She underwent an MRI, which showed a full thickness supraspinatus tear. She reports this affects her activities of daily living. She has undergone treatment with injections as well as home exercise program without relief. Due to functional impairment and failure to improve with conservative measures, the patient elected to proceed with surgical intervention. REVIEW OF SYSTEMS: No chest pain, no shortness of breath, no dysuria. PAST MEDICAL HISTORY: Depression, hypothyroidism, hip arthritis, hypercholesterolemia, atrial fibrillation, sleep apnea. PAST SURGICAL HISTORY: Tubal ligation, hip arthroplasty, hysterectomy. FAMILY HISTORY: Significant for coronary artery disease. PRIMARY CARE PROVIDER: Dr. He. MEDICATIONS: Alprazolam, adult aspirin, lisinopril, flecainide, mirtazapine, levothyroxine, Eliquis, tramadol, simvastatin, cyclobenzaprine, calcium, Wellbutrin, Voltaren. ALLERGIES: No known drug allergies. SOCIAL HISTORY: The patient denies alcohol use. She is a former smoker. Her previously obtained MRI reveals a full-thickness supraspinatus tear with approximately 1 cm of retraction. PHYSICAL EXAMINATION: GENERAL: The patient is well developed, well-nourished, in no acute distress. HEENT: Normocephalic, atraumatic. Pupils are equal, round, reactive to light. Oropharynx is clear. NECK: Supple, no lymphadenopathy. LUNGS: Clear to auscultation bilaterally. HEART: Regular rate and rhythm. ABDOMEN: Soft, nontender, nondistended. EXTREMITIES: The left shoulder demonstrates weakness with abduction and external rotation. She has active forward elevation of 170 degrees with painful beyond 90. External rotation actively 70 degrees, internal rotation is to her lower lumbar spine. She has a positive Neer's and positive De Dios sign with negative Spurling's maneuver. IMPRESSION: Left rotator cuff tear. PLAN: Left shoulder arthroscopy with open rotator cuff repair. Risks, benefits, options, ramifications and recovery were discussed at length with the patient. She understands and wishes to proceed. Job ID: [id number] DocumentID: [id number] Dictated Date: 09/05/2019 14:55:45 Sports Specialist Date: 09/05/2019 15:59:05 Dictated By: IRAJ HALL MD
[~2019-09-15] VITALS: Ht 165.1 cm; Wt 56.4 kg
[2019-09-15] VITALS (9 sets, daily range): BP systolic 140–182; BP diastolic 80–94
[~2019-09-15 07:57] MED LIST changes: +oxyCODONE/APAP 5/325MG (PERCOCET 5) TABLET PO PRN
--- OUTSIDE RECORDS SUMMARY | 2019-09-15 08:08 | XMS REPORT | Clinical Summary ---
Author Author [facility] Organization [facility] Address Unknown Phone Unavailable Care Team Providers Care Cable Installer Repairer Name Role Phone Yanira Ward MD PCP Roxi Meng MD Unavailable Carol Moran MD Unavailable Johnna Wilkinson RN Unavailable Unavailable Robb Tenorio MD Unavailable Clarissa Sanchez RN Unavailable Unavailable Franklin Washington RN Unavailable Unavailable Yin Gonzales PA-C Unavailable Chayito Irizarry Unavailable Unavailable Kristin Navarro LPN Unavailable Unavailable Source Comments Some departments are not documenting in the electronic medical record. If you d o not see the information that you expected, contact Release of Information in [facility] Health Information Management department at [phone] for further assistan ce in locating additional records.[facility] Allergies No Known Allergies Medications End Date Status Medication Sig Dispensed Refills Start Date Active ezetimibe-simvastatin Take 1 Tab by 90 Tab 3 (VYTORIN) 10-40 mg tablet mouth at 4 bedtime daily. Active calcium carbonate/vitamin Take 1 Tab by 0 D-3 (OSCAL-500+D) 1250 mouth twice mg/200 unit tablet daily with meals. Calcium Carb 1250mg delivers 500mg elemental Ca Active vitamins, multiple Take 1 Tab by 0 (MULTIPLE VITAMINS) mouth daily. tablet Active FLECAINIDE ACETATE Take by 0 (FLECAINIDE PO) mouth. Unknown dose - taking bid Active levothyroxine (SYNTHROID) Take 1 Tab by 30 Tab 3 100 mcg tablet mouth daily. 5 Active ALPRAZolam (XANAX) 0.5 mg 1 Tab three 60 Tab 0 tablet times daily 5 as needed. Fax [facility] [phone] Active lisinopril (PRINIVIL, TAKE 1 TABLET 30 Tab 5 ZESTRIL) 40 mg tablet BY MOUTH 5 DAILY. Active HYDROcodone-acetaminophen 1 Tab every 4 100 Tab 0 (+) (LORTAB, NORCO) hours as 6 10-325 mg tablet needed for Pain Earliest Fill Date: 04/07/15 Active HYDROcodone/acetaminophen Take 1 Tab by 100 Tab 0 (+) (LORTAB, NORCO) mouth every 4 6 10/325 mg tablet hours as needed for Pain Earliest Fill Date: 07/11/15 Active meloxicam (MOBIC) 7.5 mg Take 7.5 mg 0 tablet by mouth daily. Active omeprazole DR(+) Take 20 mg by 0 (PRILOSEC) 20 mg capsule mouth daily. Active sertraline (ZOLOFT) 100 Take 200 mg 0 mg tablet by mouth daily. Active DOCOSAHEXANOIC ACID/EPA Take 2,400 mg 0 (FISH OIL PO) by mouth twice daily. Active traZODone (DESYREL) 50 mg Take 1 Tab by 30 Tab 5 tablet mouth at 6 bedtime daily. Active cephalexin (KEFLEX) 500 Take 4 20 Cap 3 mg capsule capsules by 6 mouth one hour before dental procedure. Use remaining capsules for future dental procedures. Active HYDROcodone/acetaminophen 1 Tab every 4 100 Tab 0 (+) (LORTAB, NORCO) hours as 6 10/325 mg tablet needed for Pain Active Problems Problem Noted Date LEIGHA (obstructive sleep apnea) 05/18/2014 Paroxysmal A-fib 05/18/2014 Oxygen desaturation during sleep 01/20/2014 Osteoarthritis 01/17/2014 S/P total hip arthroplasty 01/17/2014 Hip arthritis 12/07/2013 Back pain 09/11/2007 Hypercholesteremia 08/06/2007 Hypertension 08/06/2007 Depression 05/29/2000 Hypothyroidism 05/29/2000 Resolved Problems Problem Noted Date Resolved Date Other screening mammogram 05/20/2008 05/20/2008 Nonspecific abnormal results of liver function study 08/1308/23/2009 Nonspecific abnormal results of other endocrine function [facility] 03/03/2007 05/20/2008 Abdominal pain, unspecified site 02/27/200702/17 Immunizations Name Administration Dates Next Due FLU VACCINE >3YO 01/13/2012 Flu Vaccine 6-35 Months 02/16/2009 Flu Vaccine =>3 YO 01/29/2015 (Historical) Flu Vaccine Quadrivalent 01/18/2014 =>3 Yo (Preservative Free) Pneumococcal 07/18/2015 Vaccine(13-[facility]/immunocompromised adult) Td Vaccine 05/29/2000 Tdap Vaccine 07/15/2011 Varicella-Zoster Vaccine 07/15/2011 - live (ZOSTAVAX) Family History Medical History Relation Name Comments High Cholesterol Brother Relation Name Status Comments Brother CAD- metastatic can cer- pt thinks lung primary Brother Etoh-head and neck cancer (Age 66) Brother Father CVA (Age 75) Mother colon cancer (Age 53) Sister brain tumor (Age 60) Social History Date Tobacco Use Types Packs/Day Years Used Quit: 10/30/1999 Former Smoker Cigarettes 1 30 Smokeless Tobacco: Never Used Tobacco Cessation: Counseling Given: Yes Comments: quit at age 49 Drinks/Week oz/Week Comments Alcohol Use 0 Standard drinks or equivalent 0.0 No Sex Assigned at Date Recorded Not on file Industry Job Start Date Occupation Not on file Not on file Not on file Travel End Travel History Travel Start No recent travel history available. Last Filed Vital Signs Reading Time Taken Comments Vital Sign 140/70 07/18/2015 8:51 AM CDT Blood Pressure 56 07/18/2015 8:51 AM CDT Pulse 36.7 C (98.1 F) 01/20/2014 6:28 AM CDT Temperature 16 05/20/2008 9:00 AM [employer]O [employer] Respiratory Rate 95% 01/20/2014 9:14 AM CDT Oxygen Saturation - - Inhaled Oxygen Concentration 68.3 kg (150 lb 8 oz) 07/18/2015 8:51 AM CDT Weight 167.6 cm (5' 6") 07/18/2015 8:51 AM CDT Height 24.29 07/18/2015 8:51 AM CDT Body Mass Index Plan of Treatment Health Maintenance Due Date Last Done Comments MEDICARE ANNUAL WELLNESS 1950 VISIT SHINGLES RECOMBINANT 09/13/1999 VACCINE (1 of 2) PHYSICAL (COMPREHENSIVE) 05/18/2015 05/18/2014, EXAM 05/18/2014, 04/09/2013, Additional history exists BREAST CANCER SCREENING 07/17/2016 07/18/2015, 05/18/2014, 04/09/2013, Additional history exists PNEUMONIA (PPSV23) 07/17/2016 07/18/2015 VACCINE (2 of 2 - PPSV23) INFLUENZA VACCINE 12/30/2019 01/29/2015, 12/29/2014, 01/18/2014, Additional history exists COLORECTAL CANCER 08/22/2020 08/22/2010, SCREENING 08/22/2010 DTAP/TDAP VACCINES (2 - 07/14/2021 07/15/2011, Td) 05/29/2000 HEPATITIS C SCREENING Completed 03/06/2007 OSTEOPOROSIS Completed 08/07/2010 SCREENING/MONITORING Results Not on filefrom Last 3 Months Insurance Type Payer Benefit Subscriber ID Effective Phone Address Plan / Dates Group Medicare MEDICARE MEDICARE xxxxxxxxxx [id number] PART A AND resent B [id number] Advance Directives Patient [facility] 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
--- OUTSIDE RECORDS SUMMARY | 2019-09-15 08:11 | XMS REPORT | Continuity of Care Document ---
Demographics Preferred Language Unknown Marital Status Unknown Amish Affiliation Unknown Race Unknown Ethnic Group Unknown Author Organization Unknown Address Unknown Phone Unavailable Allergies Active Description Code Type Severity Reaction Onset Reported/Identified Relationship to Patient Clinical Status Yes No Known Drug Allergies [id number] Drug Allergy Unknown N/A 03/14/2016 Medications There [...] AND CLEANING 08/03/2015 ENDY CAPPS MD Ot Y99 .8 OTHER EXTERNAL CAUSE STATUS 08/03/2015 ENDY CAPPS MD Ot Z96.641 PRESENCE OF RIGHT ARTIFICIAL HIP JOINT 08/03/2015 SYDNEE PADGETT DO S Ot M25.552 PAIN IN LEFT HIP 12/21/2015 SYDNEE PADGETT DO Ot M25.552 PAIN IN LEFT HIP 12/26/2015 SYDNEE PADGETT DO S Ot M25.552 PAIN IN LEFT HIP 02/15/2016 SYDNEE PADGETT DO S Ot M25.552 PAIN IN LEFT HIP 02/15/2016 DIPIKA KWAN FAC, ALI FACP CCDS Ot I48.0 PAROXYSMAL ATRIAL FIBRILLATION 02/20/2016 DIPIKA KWAN FAC, ALI FACP CCDS Ot I48.0 PAROXYSMAL ATRIAL FIBRILLATION 02/21/2016 DIPIKA KWAN [facility], ALI FACP CCDS Ot I48.0 PAROXYSMAL ATRIAL FIBRILLATION 02/21/2016 DIPIKA KWAN [facility], ALI FACP CCDS Ot I48.0 PAROXYSMAL ATRIAL FIBRILLATION 03/08/2016 DIPIKA KWAN [facility], ALI FACP CCDS Ot I48.0 PAROXYSMAL ATRIAL FIBRILLATION 03/15/2016 ABDOUL SMALL MD Ot Z01.818 ENCOUNTER FOR OTHER PREPROCEDURAL EXAMIN 03/15/2016 ABDOUL SMALL MD Ot Z80.0 FAMILY HISTORY OF MALIGNANT NEOPLASM OF 03/15/2016 ABDOUL SMALL MD Ot Z86.010 PERSONAL HISTORY OF COLONIC POLYPS 03/15/2016 DIPIKA KWAN [facility], ALMA GIRARDP CCDS Ot I48.0 PAROXYSMAL ATRIAL FIBRILLATION 03/18/2016 ABDOUL SMALL MD Ot E03.9 HYPOTHYROIDISM, UNSPECIFIED 03/18/2016 ABDOUL SMALL MD Ot I1 0 ESSENTIAL (PRIMARY) HYPERTENSION 03/18/2016 ABDOUL SMALL MD [...] HYPOTHYROIDISM, UNSPECIFIED 03/19/2016 ABDOUL SMALL MD Ot I1 0 ESSENTIAL (PRIMARY) HYPERTENSION 03/19/2016 ABDOUL SMALL MD Ot I48.91 UNSPECIFIED ATRIAL FIBRILLATION 03/19/2016 ABDOUL SMALL MD Ot K57.90 DVRTCLOS OF INTEST, PART UNSP, W/O PERF 03/19/2016 ABDOUL SMALL MD, Ot M19.90 UNSPECIFIED OSTEOARTHRITIS, UNSPECIFIED 03/19/2016 ABDOUL [...] HYPOTHYROIDISM, UNSPECIFIED 03/24/2016 ABDOUL SMALL MD Ot I1 0 ESSENTIAL (PRIMARY) HYPERTENSION 03/24/2016 ABDOUL SMALL MD Ot I48.91 UNSPECIFIED ATRIAL FIBRILLATION 03/24/2016 ABDOUL SMALL MD, Ot K57.90 DVRTCLOS OF INTEST, PART UNSP, W/O PERF 03/24/2016 ABDOUL SMALL MD, Ot M19.90 UNSPECIFIED OSTEOARTHRITIS, UNSPECIFIED 03/24/2016 ABDOUL SMALL MD Ot Z12.11 ENCOUNTER FOR SCREENING FOR MALIGNANT NE 03/24/2016 ABDOUL SMALL MD Ot Z80.0 FAMILY HISTORY OF MALIGNANT NEOPLASM OF 03/24/2016 ABDOUL SMALL MD Ot Z86.010 PERSONAL HISTORY OF COLONIC POLYPS 07/16/2016 MEHNAZ GARRETT APRN Ot G47.33 OBSTRUCTIVE SLEEP APNEA (ADULT) (PEDIATR 07/17/2016 MEHNAZ GARRETT PHYSICAL THERAPY AIDE Ot G47.33 OBSTRUCTIVE SLEEP APNEA (ADULT) (PEDIATR 07/17/2016 MEHNAZ GARRETT APRN Ot G47.33 OBSTRUCTIVE SLEEP APNEA (ADULT) (PEDIATR 07/19/2016 TINO GRESHAM Ot Z12.31 ENCNTR SCREEN MAMMOGRAM FOR MALIGNANT NE 07/19/2016 MP, TINO STRAIGHTENER Ot Z12.31 ENCNTR SCREEN MAMMOGRAM FOR MALIGNANT NE 07/19/2016 TINO GRESHAM STRAIGHTENER Ot Z12.31 ENCNTR SCREEN MAMMOGRAM FOR MALIGNANT NE 07/22/2016 MEHNAZ GARRETT APRN Ot G47.33 OBSTRUCTIVE SLEEP APNEA (ADULT) (PEDIATR 07/23/2016 BAIALEXANDRA TREVA L STRAIGHTENER Ot I48.0 PAROXYSMAL ATRIAL FIBRILLATION 07/26/2016 TREVA HATFIELD L STRAIGHTENER Ot I48.0 PAROXYSMAL ATRIAL FIBRILLATION 08/12/2016 TINO GRESHAM STRAIGHTENER Ot Z12.31 ENCNTR SCREEN MAMMOGRAM FOR MALIGNANT NE 08/23/2016 TREVA HATFIELD L STRAIGHTENER Ot I48.0 PAROXYSMAL ATRIAL FIBRILLATION 10/16/2016 SYDNEE PADGETT DO S Ot M25.552 PAIN IN LEFT HIP 10/16/2016 DIPIKA GIRARDC, ALI FACP CCDS Ot I48.0 PAROXYSMAL ATRIAL FIBRILLATION 10/16/2016 DIPIKA KWAN FACC, ALI FACP CCDS Ot I48.0 PAROXYSMAL ATRIAL FIBRILLATION 10/16/2016 STACI KWAN, ABDOUL Alegre Ot Z01.818 ENCOUNTER FOR OTHER PREPROCEDURAL EXAMIN 10/16/2016 STACI KWAN, ABDOUL Alegre Ot Z80.0 FAMILY HISTORY OF MALIGNANT NEOPLASM OF 10/16/2016 STACI KWAN, ABDOUL Alegre Ot Z86.010 PERSONAL HISTORY OF COLONIC POLYPS 10/16/2016 TINO GRESHAM STRAIGHTENER Ot Z12.31 ENCNTR SCREEN MAMMOGRAM FOR MALIGNANT NE 10/16/2016 TREVA HATFIELD STRAIGHTENER Ot I48.0 PAROXYSMAL ATRIAL FIBRILLATION 10/20/2016 TREVA HATFIELD STRAIGHTENER Ot I48.0 PAROXYSMAL ATRIAL FIBRILLATION 08/19/2017 TINO GRESHAM STRAIGHTENER Ot Z12.31 ENCNTR SCREEN MAMMOGRAM FOR MALIGNANT NE 09/10/2017 TINO GRESHAM STRAIGHTENER Ot Z12.31 ENCNTR SCREEN MAMMOGRAM FOR MALIGNANT NE 12/11/2017 SYDNEE PADGETT DO S Ot M25.552 PAIN IN LEFT HIP 12/11/2017 DIPIKA KWAN FACC, ALI FACP CCDS Ot I48.0 PAROXYSMAL ATRIAL FIBRILLATION 12/11/2017 DIPIKA KWAN FACC, ALI FACP CCDS Ot I48.0 PAROXYSMAL ATRIAL FIBRILLATION 12/11/2017 STACI KWAN, ABDOUL Alegre Ot Z01.818 ENCOUNTER FOR OTHER PREPROCEDURAL EXAMIN 12/11/2017 STACI KWAN, ABDOUL Alegre Ot Z80.0 FAMILY HISTORY OF MALIGNANT NEOPLASM OF 12/11/2017 STACI KWAN, ABDOUL Alegre Ot Z86.010 PERSONAL HISTORY OF COLONIC POLYPS 12/11/2017 TINO GRESHAM STRAIGHTENER Ot Z12.31 ENCNTR SCREEN MAMMOGRAM FOR MALIGNANT NE 12/11/2017 ADAMAALEXANDRATREVA STRAIGHTENER Ot I48.0 PAROXYSMAL ATRIAL FIBRILLATION 12/11/2017 TINO GRESHAM STRAIGHTENER Ot Z12.31 ENCNTR SCREEN MAMMOGRAM FOR MALIGNANT NE 12/16/2017 TINO GRESHAMP Ot D50.9 IRON DEFICIENCY ANEMIA, UNSPECIFIED 12/23/2017 STACI KWAN, ABDOUL Alegre Ot Z01.818 ENCOUNTER FOR OTHER PREPROCEDURAL EXAMIN 12/25/2017 STACI KWAN, ABDOUL Alegre Ot Z01.818 ENCOUNTER FOR OTHER PREPROCEDURAL EXAMIN 12/25/2017 STACI KWAN, ABDOUL Alegre Ot Z01.818 ENCOUNTER FOR OTHER PREPROCEDURAL EXAMIN 12/29/2017 STACI KWAN, ABDOUL Alegre Ot D50.9 IRON DEFICIENCY ANEMIA, UNSPECIFIED 12/29/2017 STACI KWAN, ABDOUL Alegre Ot E03.9 HYPOTHYROIDISM, UNSPECIFIED 12/29/2017 STACI KWAN, ABDOUL Alegre Ot F32.9 MAJOR DEPRESSIVE DISORDER, SINGLE EPISOD 12/29/2017 STACI KWAN, ABDOUL Alegre Ot F41.9 ANXIETY DISORDER, UNSPECIFIED 12/29/2017 STACI KWAN, ABDOUL Alegre Ot I1 0 ESSENTIAL (PRIMARY) HYPERTENSION 12/29/2017 STACI KWAN, ABDOUL Alegre Ot I48.91 UNSPECIFIED ATRIAL FIBRILLATION 12/29/2017 ABDOUL SMALL MD Ot K20.9 ESOPHAGITIS, UNSPECIFIED 12/29/2017 ABDOUL SMALL MD Ot K25.9 GASTRIC ULCER, UNSP ACUTE OR CHRONIC, 12/29/2017 STACI KWAN, ABDOUL Alegre Ot K64.4 RESIDUAL HEMORRHOIDAL SKIN TAGS 12/29/2017 STACI KWAN, ABDOUL Alegre Ot Z79.899 OTHER FINISHED GOODS PLANNER (CURRENT) DRUG THERAPY 12/29/2017 STACI KWAN, ABDOUL Alegre Ot Z80.0 FAMILY HISTORY OF MALIGNANT NEOPLASM OF 12/29/2017 STACI KWAN, ABDOUL Alegre Ot Z87.891 PERSONAL HISTORY OF NICOTINE DEPENDENCE 12/29/2017 STACI KWAN, ABDUOL Alegre Ot Z01.818 ENCOUNTER FOR OTHER PREPROCEDURAL EXAMIN 12/31/2017 STACI KWAN, ABDOUL Alegre Ot D50.9 IRON DEFICIENCY ANEMIA, UNSPECIFIED 12/31/2017 STACI KWAN, ABDOUL Alegre Ot E03.9 HYPOTHYROIDISM, UNSPECIFIED 12/31/2017 STACI KWAN, ABDOUL Alegre Ot F32.9 MAJOR DEPRESSIVE DISORDER, SINGLE EPISOD 12/31/2017 STACI KWAN, ABDOUL Alegre Ot F41.9 ANXIETY DISORDER, UNSPECIFIED 12/31/2017 ABDOUL SMALL MD Ot I1 0 ESSENTIAL (PRIMARY) HYPERTENSION 12/31/2017 STACI KWAN, ABDOUL Alegre Ot I48.91 UNSPECIFIED ATRIAL FIBRILLATION 12/31/2017 STACI KWAN, ABDOUL Alegre Ot K20.9 ESOPHAGITIS, UNSPECIFIED 12/31/2017 STACI KWAN, ABDOUL Alegre Ot K25.9 GASTRIC ULCER, UNSP ACUTE OR CHRONIC, 12/31/2017 STACI KWAN, ABDOUL Alegre Ot K64.4 RESIDUAL HEMORRHOIDAL SKIN TAGS 12/31/2017 STACI KWAN, ABDOUL Alegre Ot Z79.899 OTHER FINISHED GOODS PLANNER (CURRENT) DRUG THERAPY 12/31/2017 STACI KWAN, ABDOUL Alegre Ot Z80.0 FAMILY HISTORY OF MALIGNANT NEOPLASM OF 12/31/2017 STACI KWAN, ABDOUL Alegre Ot Z87.891 PERSONAL HISTORY OF NICOTINE DEPENDENCE 01/01/2018 TINO GRESHAM STRAIGHTENER Ot D50.9 IRON DEFICIENCY ANEMIA, UNSPECIFIED 04/17/2018 TREVA HAFTIELD STRAIGHTENER Ot E78.5 HYPERLIPIDEMIA, UNSPECIFIED 04/17/2018 TREVA HATFIELD STRAIGHTENER 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 04/17/2018 TREVA HATFIELD L STRAIGHTENER Ot I 10 ESSENTIAL (PRIMARY) HYPERTENSION 04/17/2018 TREVA HATFIELD STRAIGHTENER Ot I48.0 PAROXYSMAL ATRIAL FIBRILLATION 04/17/2018 TREVA HATFIELD STRAIGHTENER Ot R09.89 OTH SYMPTOMS AND SIGNS INVOLVING THE CIR 05/08/2018 TREVA HATFIELD STRAIGHTENER Ot E78.5 HYPERLIPIDEMIA, UNSPECIFIED 05/08/2018 BAIMA, TREVA L STRAIGHTENER 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 05/08/2018 BAIMA, TREVA L STRAIGHTENER Ot I 10 ESSENTIAL (PRIMARY) HYPERTENSION 05/08/2018 BAIMA, TREVA L STRAIGHTENER Ot I48.0 PAROXYSMAL ATRIAL FIBRILLATION 05/08/2018 BAITREVA MORRIS L STRAIGHTENER Ot R09.89 OTH SYMPTOMS AND SIGNS INVOLVING THE CIR 05/13/2018 BAITREVA MORRIS L STRAIGHTENER Ot R 42 DIZZINESS AND GIDDINESS 05/20/2018 BAIMA, TREVA L STRAIGHTENER 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 05/20/2018 BAIMA, TREVA L STRAIGHTENER Ot I 10 ESSENTIAL (PRIMARY) HYPERTENSION 05/20/2018 BAIMA, TREVA L STRAIGHTENER Ot I95.1 ORTHOSTATIC HYPOTENSION 05/20/2018 BAIMA, TREVA L STRAIGHTENER Ot Q21.1 ATRIAL SEPTAL DEFECT 05/20/2018 BAIMA, TREVA L STRAIGHTENER Ot R 42 DIZZINESS AND GIDDINESS 06/12/2018 BAIMA, TREVA L STRAIGHTENER 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 06/12/2018 BAIMA, TREVA L STRAIGHTENER Ot I 10 ESSENTIAL (PRIMARY) HYPERTENSION 06/12/2018 BAIMA, TREVA L STRAIGHTENER Ot I95.1 ORTHOSTATIC HYPOTENSION 06/12/2018 BAIMATREVA L STRAIGHTENER Ot Q21.1 ATRIAL SEPTAL DEFECT 06/12/2018 BAIMATREVA L STRAIGHTENER Ot R 42 DIZZINESS AND GIDDINESS 09/04/2018 LOUISE CARRERO APRN Ot Z12.31 ENCNTR SCREEN MAMMOGRAM FOR MALIGNANT NE 09/13/2018 LOUISE CARRERO PHYSICAL THERAPY AIDE Ot Z12.31 ENCNTR SCREEN MAMMOGRAM FOR MALIGNANT NE 10/05/2018 LOUISE CARRERO PHYSICAL THERAPY AIDE Ot Z12.31 ENCNTR SCREEN MAMMOGRAM FOR MALIGNANT NE 12/15/2018 SYDNEE PADGETT DO S Ot M25.552 PAIN IN LEFT HIP 12/15/2018 DIPIKA KWAN FACC, ALI FACP CCDS Ot I48.0 PAROXYSMAL ATRIAL FIBRILLATION 12/15/2018 DIPIKA KWAN FACC, ALI FACP CCDS Ot I48.0 PAROXYSMAL ATRIAL FIBRILLATION 12/15/2018 STACI KWAN, ABDOUL Alegre Ot Z01.818 ENCOUNTER FOR OTHER PREPROCEDURAL EXAMIN 12/15/2018 STACI KWAN, ABDOUL Alegre Ot Z80.0 FAMILY HISTORY OF MALIGNANT NEOPLASM OF 12/15/2018 STACI KWAN, ABDOUL Alegre Ot Z86.010 PERSONAL HISTORY OF COLONIC POLYPS 12/15/2018 TINO GRESHAM STRAIGHTENER Ot Z12.31 ENCNTR SCREEN MAMMOGRAM FOR MALIGNANT NE 12/15/2018 BAIALEXANDRA, TREVA L STRAIGHTENER Ot I48.0 PAROXYSMAL ATRIAL FIBRILLATION 12/15/2018 JASON GRESAHMA STRAIGHTENER Ot Z12.31 ENCNTR SCREEN MAMMOGRAM FOR MALIGNANT NE 12/15/2018 JASON GRESHAMA STRAIGHTENER Ot D50.9 IRON DEFICIENCY ANEMIA, UNSPECIFIED 12/15/2018 BAIMA TREVA L STRAIGHTENER Ot E78.5 HYPERLIPIDEMIA, UNSPECIFIED 12/15/2018 BAIMA, TREVA L STRAIGHTENER 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 12/15/2018 BAIMA, TREVA L STRAIGHTENER Ot I 10 ESSENTIAL (PRIMARY) HYPERTENSION 12/15/2018 BAIALEXANDRA TREVA L STRAIGHTENER Ot I48.0 PAROXYSMAL ATRIAL FIBRILLATION 12/15/2018 BAIMA TREVA L STRAIGHTENER Ot R09.89 OTH SYMPTOMS AND SIGNS INVOLVING THE CIR 12/15/2018 BAIMA TREVA L STRAIGHTENER 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 12/15/2018 BAIMA, TREVA L STRAIGHTENER Ot I 10 ESSENTIAL (PRIMARY) HYPERTENSION 12/15/2018 BAIALEXANDRA TREVA L STRAIGHTENER Ot I95.1 ORTHOSTATIC HYPOTENSION 12/15/2018 BAIALEXANDRA TREVA L STRAIGHTENER Ot Q21.1 ATRIAL SEPTAL DEFECT 12/15/2018 LIU TREVA L STRAIGHTENER Ot R 42 DIZZINESS AND GIDDINESS 12/15/2018 LOUISE CARRERO APRN Ot Z12.31 ENCNTR SCREEN MAMMOGRAM FOR MALIGNANT NE 01/07/2019 DIPIKA KWAN FACC, ALMA FACP CCDS Ot E03.9 HYPOTHYROIDISM, UNSPECIFIED 01/07/2019 DIPIKA KWAN FACC, ALMA FACP CCDS Ot G47.10 HYPERSOMNIA, UNSPECIFIED 01/07/2019 DIPIKA KWAN FACC, ALI FACP CCDS Ot G47.33 OBSTRUCTIVE SLEEP APNEA (ADULT) (PEDIATR 01/07/2019 DIPIKA KWAN FACC, ALI FACP CCDS Ot I10 ESSENTIAL (PRIMARY) HYPERTENSION 01/07/2019 DIPIKA KWAN FACC, ALI FACP CCDS Ot I25.10 ATHSCL HEART DISEASE OF [place] CORONARY 01/07/2019 DIPIKA KWAN FACC, ALI FACP CCDS Ot I48.0 PAROXYSMAL ATRIAL FIBRILLATION 01/07/2019 DIPIKA KWAN FACC, ALI FACP CCDS Ot M19.90 UNSPECIFIED OSTEOARTHRITIS, UNSPECIFIED 01/07/2019 DIPIKA KWAN FACC, ALI FACP CCDS Ot Z79.01 CARE HOME (CURRENT) USE OF ANTICOAGULANT 01/07/2019 DIPIKA KWAN FACC, ALI FACP CCDS Ot Z79.82 FINISHED GOODS PLANNER (CURRENT) USE OF ASPIRIN 01/07/2019 DIPIKA KWAN FACC, ALI FACP CCDS Ot Z79.899 OTHER CARE HOME (CURRENT) DRUG THERAPY 01/07/2019 DIPIKA KWAN FACC, ALI FACP CCDS Ot Z80.9 FAMILY HISTORY OF MALIGNANT NEOPLASM, UN 01/07/2019 DIPIKA KWAN FACC, ALI FACP CCDS Ot Z82.49 FAMILY HX OF ISCHEM HEART DIS AND OTH DI 01/07/2019 DIPIKA KWAN FACC, ALI FACP CCDS Ot Z87.891 PERSONAL HISTORY OF NICOTINE DEPENDENCE 01/07/2019 DIPIKA KWAN FACC, ALI FACP CCDS Ot Z90.710 ACQUIRED ABSENCE OF BOTH CERVIX AND UTER 01/07/2019 DIPIKA KWAN FACC, ALI FACP CCDS Ot Z90.89 ACQUIRED ABSENCE OF OTHER ORGANS 01/07/2019 DIPIKA KWAN FACC, ALI FACP CCDS Ot Z96.649 PRESENCE OF UNSPECIFIED ARTIFICIAL HIP J 01/09/2019 DIPIKA KWAN FACC, ALI FACP CCDS Ot E03.9 HYPOTHYROIDISM, UNSPECIFIED 01/09/2019 DIPIKA KWAN FACC, ALI FACP CCDS Ot G47.10 HYPERSOMNIA, UNSPECIFIED 01/09/2019 DIPIKA KWAN FACC, ALI FACP CCDS Ot G47.33 OBSTRUCTIVE SLEEP APNEA (ADULT) (PEDIATR 01/09/2019 DIPIKA KWAN FACC, ALI FACP CCDS Ot I10 ESSENTIAL (PRIMARY) HYPERTENSION 01/09/2019 DIPIKA KWAN FACC, ALI FACP CCDS Ot I25.10 ATHSCL HEART DISEASE OF [place] CORONARY 01/09/2019 DIPIKA KWAN FACC, ALI FACP CCDS Ot I48.0 PAROXYSMAL ATRIAL FIBRILLATION 01/09/2019 DIPIKA KWAN FACC, ALI FACP CCDS Ot M19.90 UNSPECIFIED OSTEOARTHRITIS, UNSPECIFIED 01/09/2019 DIPIKA KWAN FACC, ALI FACP CCDS Ot Z79.01 FINISHED GOODS PLANNER (CURRENT) USE OF ANTICOAGULANT 01/09/2019 DIPIKA KWAN FACC, ALI FACP CCDS Ot Z79.82 CARE HOME (CURRENT) USE OF ASPIRIN 01/09/2019 DIPIKA KWAN FACC, ALI FACP CCDS Ot Z79.899 OTHER FINISHED GOODS PLANNER (CURRENT) DRUG THERAPY 01/09/2019 DIPIKA KWAN FACC, ALI FACP CCDS Ot Z80.9 FAMILY HISTORY OF MALIGNANT NEOPLASM, UN 01/09/2019 DIPIKA KWAN FACC, ALI FACP CCDS Ot Z82.49 FAMILY HX OF ISCHEM HEART DIS AND OTH DI 01/09/2019 DIPIKA KWAN FACC, ALI FACP CCDS Ot Z87.891 PERSONAL HISTORY OF NICOTINE DEPENDENCE 01/09/2019 DIPIKA KWAN FACC, ALI FACP CCDS Ot Z90.710 ACQUIRED ABSENCE OF BOTH CERVIX AND UTER 01/09/2019 DIPIKA KWAN FACC, ALI FACP CCDS Ot Z90.89 ACQUIRED ABSENCE OF OTHER ORGANS 01/09/2019 DIPIKA KWAN FACC, ALI FACP CCDS Ot Z96.649 PRESENCE OF UNSPECIFIED ARTIFICIAL HIP J 01/25/2019 DIPIKA KWAN FACC, ALMA FACP CCDS Ot E03.9 HYPOTHYROIDISM, UNSPECIFIED 01/25/2019 DIPIKA KWAN FACC, ALI FACP CCDS Ot G47.10 HYPERSOMNIA, UNSPECIFIED 01/25/2019 DIPIKA KWAN FACC, ALI FACP CCDS Ot G47.33 OBSTRUCTIVE SLEEP APNEA (ADULT) (PEDIATR 01/25/2019 DIPIKA KWAN FACC, ALI FACP CCDS Ot I10 ESSENTIAL (PRIMARY) HYPERTENSION 01/25/2019 DIPIKA KWAN FACC, ALI FACP CCDS Ot I25.10 ATHSCL HEART DISEASE OF [place] CORONARY 01/25/2019 DIPIKA KWAN FACC, ALI FACP CCDS Ot I48.0 PAROXYSMAL ATRIAL FIBRILLATION 01/25/2019 DIPIKA KWAN FACC, ALI FACP CCDS Ot M19.90 UNSPECIFIED OSTEOARTHRITIS, UNSPECIFIED 01/25/2019 DIPIKA KWAN FACC, ALI FACP CCDS Ot Z79.01 FINISHED GOODS PLANNER (CURRENT) USE OF ANTICOAGULANT 01/25/2019 DIPIKA KWAN FACC, ALMA FACP CCDS Ot Z79.82 CARE HOME (CURRENT) USE OF ASPIRIN 01/25/2019 DIPIKA KWAN FACC, ALI FACP CCDS Ot Z79.899 OTHER FINISHED GOODS PLANNER (CURRENT) DRUG THERAPY 01/25/2019 DIPIKA KWAN FACC, ALI FACP CCDS Ot Z80.9 FAMILY HISTORY OF MALIGNANT NEOPLASM, UN 01/25/2019 DIPIKA KWAN FACC, ALI FACP CCDS Ot Z82.49 FAMILY HX OF ISCHEM HEART DIS AND OTH DI 01/25/2019 DIPIKA KWAN FACC, ALI FACP CCDS Ot Z87.891 PERSONAL HISTORY OF NICOTINE DEPENDENCE 01/25/2019 DIPIKA KWAN FACC, ALI FACP CCDS Ot Z90.710 ACQUIRED ABSENCE OF BOTH CERVIX AND UTER 01/25/2019 DIPIKA KWAN FACC, ALI FACP CCDS Ot Z90.89 ACQUIRED ABSENCE OF OTHER ORGANS 01/25/2019 DIPIKA KWAN FACC, ALI FACP CCDS Ot Z96.649 PRESENCE OF UNSPECIFIED ARTIFICIAL HIP J 03/22/2019 SYDNEE PADGETT DO S Ot M25.552 PAIN IN LEFT HIP 03/22/2019 DIPIKA KWAN FACC, ALMA FACP CCDS Ot I48.0 PAROXYSMAL ATRIAL FIBRILLATION 03/22/2019 DIPIKA KWAN FACC, ALI FACP CCDS Ot I48.0 PAROXYSMAL ATRIAL FIBRILLATION 03/22/2019 STACI KWAN, ABDOUL Alegre Ot Z01.818 ENCOUNTER FOR OTHER PREPROCEDURAL EXAMIN 03/22/2019 STACI KWAN, ABDOUL Alegre Ot Z80.0 FAMILY HISTORY OF MALIGNANT NEOPLASM OF 03/22/2019 STACI KWAN, ABDOUL Alegre Ot Z86.010 PERSONAL HISTORY OF COLONIC POLYPS 03/22/2019 TINO GRESHAMP Ot Z12.31 ENCNTR SCREEN MAMMOGRAM FOR MALIGNANT NE 03/22/2019 TREVA HATFIELD STRAIGHTENER Ot I48.0 PAROXYSMAL ATRIAL FIBRILLATION 03/22/2019 TINO GRESHAM STRAIGHTENER Ot Z12.31 ENCNTR SCREEN MAMMOGRAM FOR MALIGNANT NE 03/22/2019 TINO GRESHAMP Ot D50.9 IRON DEFICIENCY ANEMIA, UNSPECIFIED 03/22/2019 TREVA HATFIELD STRAIGHTENER Ot E78.5 HYPERLIPIDEMIA, UNSPECIFIED 03/22/2019 TREVA HATFIELD STRAIGHTENER 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 03/22/2019 BAITREVA MORRIS STRAIGHTENER Ot I 10 ESSENTIAL (PRIMARY) HYPERTENSION 03/22/2019 TREVA HATFIELD STRAIGHTENER Ot I48.0 PAROXYSMAL ATRIAL FIBRILLATION 03/22/2019 TREVA HATFIELD STRAIGHTENER Ot R09.89 OTH SYMPTOMS AND SIGNS INVOLVING THE CIR 03/22/2019 TREVA HATFIELD STRAIGHTENER 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 03/22/2019 BAITREVA MORRIS STRAIGHTENER Ot I 10 ESSENTIAL (PRIMARY) HYPERTENSION 03/22/2019 TREVA HATFIELD STRAIGHTENER Ot I95.1 ORTHOSTATIC HYPOTENSION 03/22/2019 TREVA HATFIELD STRAIGHTENER Ot Q21.1 ATRIAL SEPTAL DEFECT 03/22/2019 TREVA HATFIELD STRAIGHTENER Ot R 42 DIZZINESS AND GIDDINESS 03/22/2019 LOUISE CARRERO APRN Ot Z12.31 ENCNTR SCREEN MAMMOGRAM FOR MALIGNANT NE 03/22/2019 DIPIKA KWAN FACC, ALMA FACP CCDS Ot E03.9 HYPOTHYROIDISM, UNSPECIFIED 03/22/2019 ALMA BAR MD, FACC FACP CCDS Ot G47.10 HYPERSOMNIA, UNSPECIFIED 03/22/2019 DIPIKA KWAN FACC ALI FACP CCDS Ot G47.33 OBSTRUCTIVE SLEEP APNEA (ADULT) (PEDIATR 03/22/2019 DIPIKA KWAN FACC, ALI FACP CCDS Ot I10 ESSENTIAL (PRIMARY) HYPERTENSION 03/22/2019 DIPIKA KWAN FACC, ALI FACP CCDS Ot I25.10 ATHSCL HEART DISEASE OF [place] CORONARY 03/22/2019 ALMA BAR MD, FACC FACP CCDS Ot I48.0 PAROXYSMAL ATRIAL FIBRILLATION 03/22/2019 DIPIKA KWAN FACC ALI FACP CCDS Ot M19.90 UNSPECIFIED OSTEOARTHRITIS, UNSPECIFIED 03/22/2019 ALMA BAR MD, FACC FACP CCDS Ot Z79.01 FINISHED GOODS PLANNER (CURRENT) USE OF ANTICOAGULANT 03/22/2019 ALMA BAR MD, FACC FACP CCDS Ot Z79.82 CARE HOME (CURRENT) USE OF ASPIRIN 03/22/2019 ALMA BAR MD, FACC FACP CCDS Ot Z79.899 OTHER FINISHED GOODS PLANNER (CURRENT) DRUG THERAPY 03/22/2019 ALMA BAR MD, FACC FACP CCDS Ot Z80.9 FAMILY HISTORY OF MALIGNANT NEOPLASM, UN 03/22/2019 DIPIKA KWAN FACC, ALI FACP CCDS Ot Z82.49 FAMILY HX OF ISCHEM HEART DIS AND OTH DI 03/22/2019 DIPIKA KWAN FACC, ALI FACP CCDS Ot Z87.891 PERSONAL HISTORY OF NICOTINE DEPENDENCE 03/22/2019 DIPIKA KWAN FACC, ALI FACP CCDS Ot Z90.710 ACQUIRED ABSENCE OF BOTH CERVIX AND UTER 03/22/2019 DIPIKA GIRARD, ALI FACP CCDS Ot Z90.89 ACQUIRED ABSENCE OF OTHER ORGANS 03/22/2019 DIPIKA GIRARD, ALI FACP CCDS Ot Z96.649 PRESENCE OF UNSPECIFIED ARTIFICIAL HIP J 03/25/2019 JODI GOODE STRAIGHTENER Ot M43.12 SPONDYLOLISTHESIS, CERVICAL REGION 03/25/2019 JODI GOODE STRAIGHTENER Ot M47.812 SPONDYLOSIS W/O MYELOPATHY OR RADICULOPA 04/20/2019 JODI GOODE STRAIGHTENER Ot M43.12 SPONDYLOLISTHESIS, CERVICAL REGION 04/20/2019 JODI GOODE STRAIGHTENER Ot M47.812 SPONDYLOSIS W/O MYELOPATHY OR RADICULOPA 05/02/2019 JODI GOODE STRAIGHTENER Ot M25.48 EFFUSION, OTHER SITE 05/02/2019 JODI GOODE STRAIGHTENER Ot M47.892 OTHER SPONDYLOSIS, CERVICAL REGION 05/03/2019 JODI GOODE STRAIGHTENER Ot M25.512 PAIN IN LEFT SHOULDER 05/04/2019 SYDNEE PADGETT DO Ot M25.552 PAIN IN LEFT HIP 05/04/2019 DIPIKA GIRARD, ALMA FACP CCDS Ot I48.0 PAROXYSMAL ATRIAL FIBRILLATION 05/04/2019 DIPIKA KWAN FACC, ALI FACP CCDS Ot I48.0 PAROXYSMAL ATRIAL FIBRILLATION 05/04/2019 ABDOUL SMALL MD Ot Z01.818 ENCOUNTER FOR OTHER PREPROCEDURAL EXAMIN 05/04/2019 ABDOUL SMALL MD Ot Z80.0 FAMILY HISTORY OF MALIGNANT NEOPLASM OF 05/04/2019 ABDOUL SMALL MD Ot Z86.010 PERSONAL HISTORY OF COLONIC POLYPS 05/04/2019 MP, TINO STRAIGHTENER Ot Z12.31 ENCNTR SCREEN MAMMOGRAM FOR MALIGNANT NE 05/04/2019 BAIMA, TREVA L STRAIGHTENER Ot I48.0 PAROXYSMAL ATRIAL FIBRILLATION 05/04/2019 TINO GRESHAM STRAIGHTENER Ot Z12.31 ENCNTR SCREEN MAMMOGRAM FOR MALIGNANT NE 05/04/2019 MP, TINO STRAIGHTENER Ot D50.9 IRON DEFICIENCY ANEMIA, UNSPECIFIED 05/04/2019 BAIMA, TREVA L STRAIGHTENER Ot E78.5 HYPERLIPIDEMIA, UNSPECIFIED 05/04/2019 BAIMA, TREVA L STRAIGHTENER 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 05/04/2019 BAIMA, TREVA L STRAIGHTENER Ot I 10 ESSENTIAL (PRIMARY) HYPERTENSION 05/04/2019 BAIMA, TREVA L STRAIGHTENER Ot I48.0 PAROXYSMAL ATRIAL FIBRILLATION 05/04/2019 BAIMA, TREVA L STRAIGHTENER Ot R09.89 OTH SYMPTOMS AND SIGNS INVOLVING THE CIR 05/04/2019 BAIMA, TREVA L STRAIGHTENER 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 05/04/2019 BAIMA, TREVA L STRAIGHTENER Ot I 10 ESSENTIAL (PRIMARY) HYPERTENSION 05/04/2019 BAIMA, TREVA L STRAIGHTENER Ot I95.1 ORTHOSTATIC HYPOTENSION 05/04/2019 BAIMA, TREVA L STRAIGHTENER Ot Q21.1 ATRIAL SEPTAL DEFECT 05/04/2019 BAIMA, TREVA L STRAIGHTENER Ot R 42 DIZZINESS AND GIDDINESS 05/04/2019 LOUISE CARRERO APRN Ot Z12.31 ENCNTR SCREEN MAMMOGRAM FOR MALIGNANT NE 05/04/2019 DIPIKA KWAN FACC, ALI FACP CCDS Ot E03.9 HYPOTHYROIDISM, UNSPECIFIED 05/04/2019 DIPIKA KWAN FACC, ALI FACP CCDS Ot G47.10 HYPERSOMNIA, UNSPECIFIED 05/04/2019 DIPIKA KWAN FACC, ALI FACP CCDS Ot G47.33 OBSTRUCTIVE SLEEP APNEA (ADULT) (PEDIATR 05/04/2019 DIPIKA KWAN FACC, ALI FACP CCDS Ot I10 ESSENTIAL (PRIMARY) HYPERTENSION 05/04/2019 DIPIKA KWAN FACC, ALI FACP CCDS Ot I25.10 ATHSCL HEART DISEASE OF [place] CORONARY 05/04/2019 DIPIKA KWAN FACC, ALI FACP CCDS Ot I48.0 PAROXYSMAL ATRIAL FIBRILLATION 05/04/2019 DIPIKA GIRARDC, ALI FACP CCDS Ot M19.90 UNSPECIFIED OSTEOARTHRITIS, UNSPECIFIED 05/04/2019 DIPIKA KWAN [facility], ALI FACP CCDS Ot Z79.01 CARE HOME (CURRENT) USE OF ANTICOAGULANT 05/04/2019 DIPIKA KWAN [facility], ALI FACP CCDS Ot Z79.82 CARE HOME (CURRENT) USE OF ASPIRIN 05/04/2019 DIPIKA KWAN [facility], ALI FACP CCDS Ot Z79.899 OTHER CARE HOME (CURRENT) DRUG THERAPY 05/04/2019 DIPIKA KWAN [facility], ALI FACP CCDS Ot Z80.9 FAMILY HISTORY OF MALIGNANT NEOPLASM, UN 05/04/2019 DIPIKA KWAN [facility], ALI FACP CCDS Ot Z82.49 FAMILY HX OF ISCHEM HEART DIS AND OTH DI 05/04/2019 DIPIKA KWAN [facility], ALI FACP CCDS Ot Z87.891 PERSONAL HISTORY OF NICOTINE DEPENDENCE 05/04/2019 DIPIKA KWAN [facility], ALI FACP CCDS Ot Z90.710 ACQUIRED ABSENCE OF BOTH CERVIX AND UTER 05/04/2019 DIPIKA KWAN [facility], ALI FACP CCDS Ot Z90.89 ACQUIRED ABSENCE OF OTHER ORGANS 05/04/2019 DIPIKA KWAN [facility], ALI FACP CCDS Ot Z96.649 PRESENCE OF UNSPECIFIED ARTIFICIAL HIP J 05/04/2019 JODI GOODE STRAIGHTENER Ot M43.12 SPONDYLOLISTHESIS, CERVICAL REGION 05/04/2019 JODI GOODE STRAIGHTENER Ot M47.812 SPONDYLOSIS W/O MYELOPATHY OR RADICULOPA 05/04/2019 JODI GOODE STRAIGHTENER Ot M25.48 EFFUSION, OTHER SITE 05/04/2019 JODI GOODE STRAIGHTENER Ot M47.892 OTHER SPONDYLOSIS, CERVICAL REGION 05/04/2019 JODI GOODE STRAIGHTENER Ot M25.512 PAIN IN LEFT SHOULDER 05/04/2019 JODI GOODE STRAIGHTENER Ot M25.512 PAIN IN LEFT SHOULDER 05/11/2019 CELE BARRERA APRN Ot E03 .9 HYPOTHYROIDISM, UNSPECIFIED 05/11/2019 CELE BARRERA APRN Ot E83.52 HYPERCALCEMIA 05/11/2019 CELE BARRERA APRN Ot E86 .9 VOLUME DEPLETION, UNSPECIFIED 05/11/2019 CELE BARRERA APRN Ot F32 .9 MAJOR DEPRESSIVE DISORDER, SINGLE EPISOD 05/11/2019 CELE BARRERA APRN Ot F41 .9 ANXIETY DISORDER, UNSPECIFIED 05/11/2019 CELE BARRERA APRN Ot I10 ESSENTIAL (PRIMARY) HYPERTENSION 05/11/2019 CELE BARRERA APRN Ot I48.91 UNSPECIFIED ATRIAL FIBRILLATION 05/11/2019 CELE BARRERA APRN Ot R42 DIZZINESS AND GIDDINESS 05/11/2019 CELE BARRERA APRN Ot Z79.01 CARE HOME (CURRENT) USE OF ANTICOAGULANT 05/11/2019 CELE BARRERA APRN Ot 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 9 HYPOTHYROIDISM, UNSPECIFIED 05/21/2019 JOSE GUADALUPE [place] DO Ot F32. 9 MAJOR DEPRESSIVE DISORDER, SINGLE EPISOD 05/21/2019 [place] JOSE GUADALUPE HOOPER Ot F41. 9 ANXIETY DISORDER, UNSPECIFIED 05/21/2019 [place] JOSE GUADALUPE HOOPER Ot G89. 29 OTHER CHRONIC PAIN 05/21/2019 JOSE GUADALUPE [place] DO Ot I48. 91 UNSPECIFIED ATRIAL FIBRILLATION 05/21/2019 JOSE GUADALUPE [place]IS DO Ot M19. 90 UNSPECIFIED OSTEOARTHRITIS, UNSPECIFIED 05/21/2019 JOSE GUADALUPE [place] DO Ot M54. 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 89 ACQUIRED ABSENCE OF OTHER ORGANS 05/21/2019 [facility] Ot E03. 9 HYPOTHYROIDISM, UNSPECIFIED 05/21/2019 [facility] Ot F32. 9 MAJOR DEPRESSIVE DISORDER, SINGLE EPISOD 05/21/2019 [facility], JOSE GUADALUPE Quiroz Ot F41. 9 ANXIETY DISORDER, UNSPECIFIED 05/21/2019 [facility] Ot G89. 29 OTHER CHRONIC PAIN 05/21/2019 [facility] Ot I48. 91 UNSPECIFIED ATRIAL FIBRILLATION 05/21/2019 [facility] Ot M19. 90 UNSPECIFIED OSTEOARTHRITIS, UNSPECIFIED 05/21/2019 [facility] Ot M54. 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 82 CARE HOME (CURRENT) USE OF ASPIRIN 05/21/2019 [facility] Ot Z79.899 OTHER CARE HOME (CURRENT) DRUG THERAPY 05/21/2019 [facility] Ot Z90.710 ACQUIRED ABSENCE OF BOTH CERVIX AND UTER 05/21/2019 [facility] Ot Z90. 89 ACQUIRED ABSENCE OF OTHER ORGANS 05/25/2019 JODI GOODE [facility] Ot M25.48 EFFUSION, OTHER SITE 05/25/2019 JODI GOODE [facility] Ot M47.892 OTHER SPONDYLOSIS, CERVICAL REGION 05/25/2019 JODI GOODE M STRAIGHTENER Ot M25.512 PAIN IN LEFT SHOULDER 05/28/2019 W H11.31 Tra umatic subconjunctival hemorrhage of right eye Jodi Goode 05/28/2019 W S02.2XXA F racture closed, nasal bone Jodi Goode 05/28/2019 W E03.4 Atro phy of thyroid (acquired) Jodi Goode 05/28/2019 W I10 Essent ial (primary) hypertension Jodi Goode 05/28/2019 W M25.512 Le ft shoulder pain Jodi Goode 05/28/2019 W M54.2 Neck pain Jodi Goode 05/28/2019 W E83.52 Ser um calcium elevated Jodi Goode 05/28/2019 W K59.01 Slo w transit constipation Jodi Goode 05/28/2019 W S46.812A T raumatic tear of supraspinatus tendon of left shoulder Jodi Goode 05/28/2019 W H11.31 Tra umatic subconjunctival hemorrhage of right eye Jodi Goode 05/28/2019 W M54.2 Neck pain Jodi Goode 05/28/2019 W S02.2XXA F racture closed, nasal bone Jodi Goode 05/28/2019 W Z09 Hospit al discharge follow-up Jodi Goode 06/04/2019 W H11.31 Tra umatic subconjunctival hemorrhage of right eye Jodi Goode 06/04/2019 W M54.2 Neck pain Jodi Goode 06/04/2019 W S02.2XXA F racture closed, nasal bone Jodi Goode 06/04/2019 W Z09 Hospit al discharge follow-up Jodi Goode 06/09/2019 W E03.4 Atro phy of thyroid (acquired) [place], Bitely 06/09/2019 W 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 Results Test Result Range TSH - 06/20/16 09:15 TSH 0.125 uIU/mL 0.450-4.500 Prothrombin Time (PT) - 07/15/16 09:08 INR 2.6 0.8-1.2 Prothrombin Time 26.8 sec 9.1-12.0 PT panel in platelet poor plasma by coag ulation assay - 07/22/16 14:44 Prothrombin time (PT) in platelet poor plasma by coagu lation assay 21.7 s 12.2-14.7 INR in platelet poor plasma or blood by coagulation as say 1.9 0.8-1.4 PT panel in platelet poor plasma by coag ulation assay - 08/01/16 09:22 Prothrombin time (PT) in platelet poor plasma by coagu lation assay 17.2 s 12.2-14.7 INR in platelet poor plasma or blood by coagulation as say 1.4 0.8-1.4 TSH - 09/23/16 17:07 TSH 0.580 uIU/mL 0.450-4.500 Comp. Metabolic Panel (14) - 10/10/16 10 :33 Glucose, Serum 69 mg/dL 65-99 BUN 19 mg/dL 8-27 Creatinine, Serum 1.14 mg/dL 0.57-1.00 eGFR If NonAfricn Am 50 mL/min/1.73 >59 eGFR If Africn Am 57 mL/min/1.73 >59 BUN/Creatinine Ratio 12-28 Sodium, Serum 142 mmol/L 134-144 Potassium, [...] <5.0 NON HDL CHOLESTEROL 124 mg/dL (calc) <13 0 CBC - 11/18/17 10:10 WHITE BLOOD CELL COUNT 5.6 Thousand/uL 3 .8-10.8 RED BLOOD CELL COUNT 3.82 Million/uL 3.8 0-5.10 HEMOGLOBIN 9.6 g/dL 11.7-15.5 HEMATOCRIT 31.3 % 35.0-45.0 MCV 81.9 fL 80.0-100.0 MCH 25.1 pg 27.0-33.0 MCHC 30.7 g/dL 32.0-36.0 RDW 14.5 % 11.0-15.0 PLATELET COUNT 282 Thousand/uL 140-400 MPV 10.1 fL 7.5-12.5 ABSOLUTE NEUTROPHILS 3382 cells/uL 1500- 7800 ABSOLUTE LYMPHOCYTES 1282 cells/uL 850-3 900 ABSOLUTE MONOCYTES 672 cells/uL 200-950 ABSOLUTE EOSINOPHILS 213 cells/uL 15-500 ABSOLUTE BASOPHILS 50 cells/uL 0-200 NEUTROPHILS 60.4 % NRG LYMPHOCYTES 22.9 % NRG MONOCYTES 12.0 % NRG EOSINOPHILS 3.8 % NRG BASOPHILS 0.9 % NRG Automated reticulocyte percentage - 11/29 06/15 10:15 Blood erythrocytes automated count (number/volume) 3.72 10*6/uL 4.35-5.85 Blood reticulocytes count (number/volume) 60 10*9/ L 24-90 Blood reticulocytes/100 erythrocytes 1.61 % 0.50-2.40 Serum or plasma folate measurement (mass /volume) - 12/11/17 10:15 Serum or plasma folate measurement (mass/volume) 1 6.4 % >=4.0 Serum iron and total iron binding capaci ty panel - 12/11/17 10:15 Serum or plasma iron measurement (mass/volume) 46 % 35-180 Total iron binding capacity and transferrin saturation measurement 10 % 15-50 Iron binding capacity [mass/volume] in serum or plasma 480 % 280-380 UIBC (unsaturated iron binding capacity) 434 % 55-450 Serum or plasma ferritin measurement (mass/volume) 5.0 % 20.0-177.0 Cyanocobalamin measurement - 12/11/17 10 :15 Vitamin B12 664 pg/mL 190-1100 Complete urinalysis with reflex to cultu re - 12/11/17 12:50 Urine color determination YELLOW NRG Urine clarity determination CLEAR NR G Urine pH measurement by test strip 8 5-9 Specific gravity of urine by test strip 1.010 1.016-1.022 Urine protein assay by test strip, semi-quantitative NEGATIVE NEGATIVE Urine glucose detection by automated test strip NE GATIVE NEGATIVE Erythrocytes detection in urine sediment by light micr oscopy NEGATIVE NEGATIVE Urine ketones detection by automated test strip NE GATIVE NEGATIVE Urine nitrite detection by test strip NEGATIVE NEGATIVE Urine total bilirubin detection by test strip NEGA TIVE NEGATIVE Urine urobilinogen measurement by automated test strip (mass/volume) 1 mg/dL NORMAL Urine leukocyte esterase detection by dipstick 1+ NEGATIVE Automated urine sediment erythrocyte cou nt by microscopy (number/high power field) [HPF] NRG Automated urine sediment leukocyte count by microscopy (number/high power field) [HPF] NRG Bacteria detection in urine sediment by light microsco py LARGE NRG Squamous epithelial cells detection in u rine sediment by light microscopy NONE NRG Crystals detection in urine sediment by light microsco py NONE NRG Casts detection in urine sediment by light microscopy NONE NRG Mucus detection in urine sediment by light microscopy NEGATIVE NRG Complete urinalysis with reflex to culture YES NRG Bacterial urine culture - 12/11/17 12:50 Bacterial urine culture [id number] NRG COLONY COUNT >100,000/ML NRG FTX;REPORTABLE RML SENT SENSITIVITY REPORT 12/13 08 :05 NRG RML Sensitivity Panel - 12/11/17 12:50 Gentamicin susceptibility test by minimum inhibitory c oncentration <= NRG Trimethoprim/sulfamethoxazole susceptibi lity test by minimum inhibitoryconcentration <= NRG Levofloxacin susceptibility test by minimum inhibitory concentration <= NRG Cefazolin susceptibility test by minimum inhibitory co ncentration 2 NRG Ceftriaxone susceptibility test by minimum inhibitory concentration <= NRG Ciprofloxacin susceptibility test by minimum inhibitor y concentration <= NRG Meropenem susceptibility test by minimum inhibitory co ncentration <= NRG Nitrofurantoin susceptibility test by mi nimum inhibitory concentration <= NRG Amoxicillin and clavulanate potassium susc RUSSELL <= NRG FERRITIN, SERUM - 02/16/18 15:22 FERRITIN 6 ng/mL 20-288 Complete blood count (CBC) with automate d white blood cell (WBC) differential - 05/07/19 16:00 Blood leukocytes automated count (number/volume) 11.1 10*3/uL 4.3-11.0 Blood erythrocytes automated count (number/volume) 4.39 10*6/uL 4.35-5.85 Venous blood hemoglobin measurement (mass/volume) 13.6 g/dL 11.5-16.0 Blood hematocrit (volume fraction) 40 % 35-52 Automated erythrocyte mean corpuscular volume 91 [ foz_us] 80-99 Automated erythrocyte mean corpuscular h emoglobin (mass per erythrocyte) 31 pg 25-34 Automated erythrocyte mean corpuscular h emoglobin concentration measurement (mass/volume) 34 g/dL 32-36 Automated erythrocyte distribution width ratio 12. 9 % 10.0- 14.5 Automated blood platelet count (count/volume) 255 10*3/uL 130-400 Automated blood platelet mean volume measurement 10.4 [foz_us] 7.4-10.4 Automated blood neutrophils/100 leukocytes 87 % 42-75 Automated blood lymphocytes/100 leukocytes 8 % 12-44 Blood monocytes/100 leukocytes 5 % 0-12 Automated blood eosinophils/100 leukocytes 0 % 0-10 Automated blood basophils/100 leukocytes 0 % 0-10 Blood neutrophils automated count (number/volume) 9.7 10*3 1.8-7.8 Blood lymphocytes automated count (number/volume) 0.9 10*3 1.0-4.0 Blood monocytes automated count (number/volume) 0. 5 10*3 0.0-1.0 Automated eosinophil count 0.0 10*3/uL 0 .0-0.3 Automated blood basophil count (count/volume) 0.0 10*3/uL 0.0-0.1 Comprehensive metabolic panel - 05/07/19 16:00 Serum or plasma sodium measurement (moles/volume) 137 mmol/L 135-145 Serum or plasma potassium measurement (moles/volume) 4.4 mmol/L 3.6-5.0 Serum or plasma chloride measurement (moles/volume) 100 mmol/L 98-107 Carbon dioxide 25 mmol/L 21-32 Serum or plasma anion gap determination (moles/volume) 12 mmol/L 5-14 Serum or plasma urea nitrogen measurement (mass/volume ) 25 mg/dL 7-18 Serum or plasma creatinine measurement (mass/volume) 1.67 mg/dL 0.60-1.30 Serum or plasma urea nitrogen/creatinine mass ratio 15 NRG Serum or plasma creatinine measurement w ith calculation of estimated glomerular filtration rate 30 NRG Serum or plasma glucose measurement (mass/volume) 113 mg/dL 70-105 Serum or plasma calcium measurement (mass/volume) 14.1 mg/dL 8.5-10.1 Serum or plasma total bilirubin measurement (mass/volu me) 0.6 mg/dL 0.1-1.0 Serum or plasma alkaline phosphatase ankush surement (enzymatic activity/volume) 55 U/L 40-136 Serum or plasma aspartate aminotransfera se measurement (enzymatic activity/volume) 33 U/L 5-34 Serum or plasma alanine aminotransferase measurement (enzymatic activity/volume) 25 U/L 0-55 Serum or plasma protein measurement (mass/volume) 7.8 g/dL 6.4-8.2 Serum or plasma albumin measurement (mass/volume) 4.9 g/dL 3.2-4.5 Serum or plasma troponin i.cardiac measu rement (mass/volume) - 05/07/19 16:00 Serum or plasma troponin i.cardiac measurement (mass/v olume) < ng/mL <0.028 Lipase - 05/07/19 16:00 Lipase 50 U/L 8-78 Manual absolute plasma cell count - 10/17 16:00 Blood monocytes/100 leukocytes 3 % NRG Manual blood segmented neutrophils/100 leukocytes 89 % NRG Manual blood lymphocytes/100 leukocytes 8 % NRG Blood erythrocyte morphology finding identification NORMAL NRG Serum or plasma intact pararthyroid horm one measurement (mass/volume) - 05/07/19 16:00 Serum or plasma intact parathyroid hormone measurement (mass/volume) 13.2 pg/mL 9.0-77.0 Bio-intact parathyroid hormone (PTH) measurement with calcium 13.8 % 8.5-10.5 Serum or plasma calcitriol measurement ( mass/volume) - 05/07/19 16:00 Serum or plasma calcitriol measurement (mass/volume) 8.8 pg/mL 19.9-79.3 Complete urinalysis with reflex to cultu re - 05/07/19 16:28 Urine color determination YELLOW NRG Urine clarity determination CLEAR NR G Urine pH measurement by test strip 6.0 5-9 Specific gravity of urine by test strip >= 1.016-1.022 Urine protein assay by test strip, semi-quantitative NEGATIVE NEGATIVE Urine glucose detection by automated test strip NE GATIVE NEGATIVE Erythrocytes detection in urine sediment by light micr oscopy NEGATIVE NEGATIVE Urine ketones detection by automated test strip NE GATIVE NEGATIVE Urine nitrite detection by test strip NEGATIVE NEGATIVE Urine total bilirubin detection by test strip NEGA TIVE NEGATIVE Urine urobilinogen measurement by automated test strip (mass/volume) 0.2 mg/dL < = 1.0 Urine leukocyte esterase detection by dipstick NEG ATIVE NEGATIVE Automated urine sediment erythrocyte cou nt by microscopy (number/high power field) [HPF] NRG Automated urine sediment leukocyte count by microscopy (number/high power field) [HPF] NRG Bacteria detection in urine sediment by light microsco py TRACE NRG Crystals detection in urine sediment by light microsco py PRESENT NRG Casts detection in urine sediment by light microscopy PRESENT NRG Mucus detection in urine sediment by light microscopy NEGATIVE NRG Complete urinalysis with reflex to culture NO NRG Amorphous sediment detection in urine sediment by ligh t microscopy MOD BHARATH URATES NRG Hyaline casts detection in urine sediment by light russell roscopy 10-25 NRG Serum or plasma calcium measurement (mas s/volume) - 05/07/19 18:53 Serum or plasma calcium measurement (mass/volume) 11.8 mg/dL 8.5-10.1 Coronavirus SARS-CoV-2 SO 2019 - 0 08:00 Coronavirus Ab [Units/volume] in Serum Negative Negative Encounters ACCT No. Visit Date/Time Discharge Status Pt. Type Provider Facility Loc./Unit Complaint [id number] 06/21/2016 09:12:00 Document Registration [id number] 10/21/2017 18:16:29 10/21/2017 23:59:5 9 CLS Outpatient Sydnee Padgett [id number] 09/24/2016 08:36:00 Document Registration [id number] 09/13/2019 05:40:00 15:08:00 DIS Outpatient RAFAEL KWAN, IRAJ Grover [facility] PREOP LEFT ROTATOR CUFF TEAR [id number] 05/20/2019 17:29:00 13:30:00 DIS Inpatient JOSE GUADALUPE [place] DO D [facility] 4TH CHI,SUBCONJUNCTIVAL HEM ATOMA R, NASAL FRACTURE [id number] 05/11/2019 13:09:00 23:59:59 CLS Outpatient JODI GOODE STRAIGHTENER [facility] RAD LT SHOULDER VIELKA N [id number] 05/07/2019 14:59:00 19:31:00 DIS Outpatient CELE BARRERA APRN [facility] ER DIZZINESS;WEAKNESS [id number] 05/03/2019 11:39:00 23:59:59 CLS Outpatient JODI GOODE STRAIGHTENER [facility] RAD LEFT SHOULDER P AIN [id number] 04/26/2019 15:01:00 23:59:59 CLS Outpatient JODI GOODE STRAIGHTENER [facility] RAD NECK PAIN [id number] 03/22/2019 09:53:00 23:59:59 CLS Outpatient JODI GOODE STRAIGHTENER [facility] RAD NECK PAIN [id number] 12/15/2018 11:56:00 23:59:59 CLS Outpatient DIPIKA KWAN FACC, ALMA LAGUNA CC DS [facility] CATH PFO,HTN [id number] 09/07/2018 11:19:00 23:59:59 CLS Outpatient LOUISE CARRERO PHYSICAL THERAPY AIDE [facility] RAD SCREENING [id number] 05/13/2018 14:16:00 019 23:59:59 CLS Outpatient TREVA HATFIELD [facility] CARD R42 [id number] 04/16/2018 13:01:00 019 23:59:59 CLS Outpatient TREVA HATFIELD [facility] CARD CAROTID BRUIT,P AF,HTN [id number] 12/29/2017 07:33:00 018 11:40:00 DIS Outpatient STACI KWAN, ABDOUL Alegre [facility] ENDO IRON DEFF ANEMIA/FX HX COLON CA [id number] 12/25/2017 10:15:00 018 11:59:00 DIS Outpatient ABDOUL SMALL MD [facility] PREOP COLO/EGD [id number] 12/11/2017 09:59:00 018 23:59:59 CLS Outpatient TINO GRESHAM [facility] LAB D50.9 [id number] 08/18/2017 08:27:00 018 23:59:59 CLS Outpatient TINO GRESHAM [facility] RAD Z12.31 SCREENING MAMMO GRAM FOR BREAST CANCER [id number] 10/21/2016 00:16:00 017 23:59:59 CLS Preadmit TREVA HATFIELD STRAIGHTENER [facility] LAB I48.0 [id number] 08/01/2016 09:19:00 017 00:01:00 DIS Outpatient TREVA HATFIELD STRAIGHTENER [facility] LAB I48.0 [id number] 07/19/2016 09:38:00 017 23:59:59 CLS Outpatient TINO GRESHAM [facility] RAD SCREENING [id number] 07/16/2016 19:45:00 017 06:35:00 DIS Outpatient MEHNAZ GARRETT APRN [facility] SLEEP LEIGHA,HYPERSOMNIA ,CARDIAC ARRHYTHMIA [id number] 03/18/2016 09:20:00 12:20:00 DIS Outpatient ABDOUL SMALL MD [facility] HISTORY POLYPS [id number] 03/14/2016 08:24:00 23:59:59 CLS Outpatient ABDOUL SMALL MD [facility] PREOP HISTORY OF POLYPS [id number] 02/20/2016 09:00:00 23:59:59 CLS Outpatient DIPIKA KWAN FACC, ALI FACP CC DS [facility] CARD PAF [id number] 02/15/2016 07:14:00 23:59:59 CLS Outpatient DIPIKA KWAN FACC, ALI FACP CC DS [facility] CARD PAF [id number] 08/03/2015 09:40:00 12:43:00 DIS Emergency ENDY CAPPS MD [facility] ER FALL [id number] 04/11/2015 11:50:00 23:59:59 CLS Outpatient SYDNEE PADGETT DO [facility] RAD LT HIP PAIN [id number] 08/15/2014 12:51:00 16:00:00 DIS Emergency LISA MENENDEZ DO [facility] ER DIARRHEA/NAUSEA WEAKNES S [id number] 09/15/2019 10:15:00 P EN IRAJ Reddy MD [facility] LEFT ROTATOR CUFF TEAR [id number] 07/16/2016 07:05:00 Document Registration [id number] 05/13/2018 09:15:00 05/13/2018 23:59: 59 CLS Outpatient TINO GRESHAM APRN [facility] [id number] 02/16/2018 14:20:00 Document Registration [id number] 11/18/2017 09:00:00 Document Registration [id number] 08/14/2017 09:20:00 Document Registration [id number] 05/18/2018 11:06:42 05/18/2018 23:59:5 9 [facility] Outpatient [id number] 10/11/2016 08:42:00 Document Registration
[2019-09-15] MEDS ORDERED: MIDAZOLAM 2 MG/2 ML (VERSED) VIAL ONE (08:29)
[2019-09-15] MEDS ORDERED: BUPIVACAINE 0.5% 30 ML (SENSORCAINE) VIAL ONE (08:29)
[2019-09-15] MEDS ORDERED: LIDOCAINE PF 2% 5 ML (XYLOCAINE) VIAL ONE ×2 (08:30→09:25)
[2019-09-15] MEDS ORDERED: BUPIVACAINE 0.25% 30 ML (SENSORCAINE) VIAL ONE (09:15)
[2019-09-15] MEDS ORDERED: morphine PF (DURAMORPH) 10 MG/10 ML AMP ONE (09:15)
--- NOTE | 2019-09-15 09:21 | Progress Note-Pre Operative ---
Pre-Operative Progress Note H&P Reviewed The H&P was reviewed, patient examined and no changes noted. Date Seen by Provider: Sep 15, 2019 Time Seen by Provider: :20 Date H&P Reviewed: Sep 15, 2019 Time H&P Reviewed: :20 Pre-Operative Diagnosis: left rotator cuff tear IRAJ HALL MD Sep 15, 2019 09:21
[2019-09-15] MEDS ORDERED: fentaNYL INJECTION 100 MCG/2 ML AMP ONE (09:23)
[2019-09-15] MEDS ORDERED: ceFAZolin INJECTION 1,000 MG ONE (09:24)
--- NOTE | 2019-09-15 09:24 | Progress Note-Post Operative ---
Post-Operative Progess Note Surgeon (s)/Nursing Admin (s) Surgeon IRAJ HALL MD Nursing Admin: Diego Jack Pre-Operative Diagnosis left rotator cuff tear Post-Operative Diagnosis left rotator cuff tear Procedure & Operative Findings Date of Procedure 09/15/19 Procedure Performed/Findings left shoulder arthroscopic acromioplasty and open rotator cuff repair Anesthesia Type GETA plus interscalene Estimated Blood Loss Estimated blood loss (mL): minimal Specimens/Packing Specimens Removed none Packing: none IRAJ HALL MD Sep 15, 2019 09:24
[2019-09-15] MEDS ORDERED: ONDANSETRON 4 MG/2 ML (SDV) Z0FRAN ONE (09:25)
[2019-09-15] MEDS ORDERED: DEXAMETHASONE 10 MG/ML (DECADRON) 1 ML VIAL ONE (09:25)
[2019-09-15] MEDS ORDERED: WATER (STERILE) FOR INJECTION 10 ML ONE (09:25)
[2019-09-15] MEDS ORDERED: proPOfol 200 MG/20 ML (DIPRIVAN) VIAL IV ONE (09:25)
[2019-09-15] MEDS ORDERED: ceFAZolin INJECTION 1,000 MG in WATER (STERILE) FOR INJECTION 10 ML IV ONE (09:30)
[2019-09-15] MEDS ORDERED: LACTATED RINGERS 1,000 ML IV PRN (09:33)
--- NOTE | 2019-09-15 11:10 | NUR ---
TO AMB SURG FROM PAR PER CART. ALERT, SMILING, DENIES PAIN. BULKY DRESSING D/I TO LEFT SHOULDER, LEFT ARM IN SLING, ICE PACK AT SHOULDER. REPORTS LEFT ARM "NUMB". ABLE TO MOVE FINGERS SLIGHTLY AND FEEL PRESSURE TOUCH TO LEFT UPPER ARM. PO FLUIDS PROVIDED.
--- NOTE | 2019-09-15 11:12 | Anesthesia-Procedure Note ---
Procedures/Interventions Procedure Start/Stop/Diagnosis Date of Procedure: Sep 15, 2019 Start Time: 08:55 Stop Time: 09:15 Additional Procedures Procedures interscalene block performed with nerver stimulator. 20cc .5 percent marcaine injected after bicep twitch loss at .6 ma. pt tolerated procedure well. XIMENA PAREDES CRNA Sep 15, 2019 11:12
--- NOTE | 2019-09-15 12:26 | OPERATIVE REPORT ---
DATE OF SERVICE: PREOPERATIVE DIAGNOSIS: Left rotator cuff tear. POSTOPERATIVE DIAGNOSIS: Left rotator cuff tear. PROCEDURES PERFORMED: 1. Left open rotator cuff repair. 2. Left shoulder arthroscopic acromioplasty. SURGEON: Tomas Hall MD. EXPLOSION WELDER: Diego Jack, who assisted throughout the procedure and closed the incisions. ANESTHESIA: General endotracheal plus interscalene nerve block by Sarah Butterfield CRNA. ESTIMATED BLOOD LOSS: Minimal. DRAINS: None. COMPLICATIONS: None. POSTOPERATIVE PLAN: Sling wear and passive range of motion for four weeks. The patient was transferred to the recovery room awake and in stable condition. STATEMENT OF MEDICAL NECESSITY: The patient is a 69-year-old female with complaints of left shoulder pain and weakness. An MRI revealed a full-thickness supraspinatus tear. She tried rest, activity modifications, injections and home physical therapy program without relief. Due to functional impairment and failure to improve with conservative measures, the patient elected to proceed with surgical intervention. Examination under anesthesia revealed forward elevation of 170 degrees, external rotation of 85 degrees and internal rotation of 75 degrees. ARTHROSCOPIC FINDINGS: The glenoid and humeral head demonstrated no gross chondral abnormalities. The biceps anchor was intact. The labrum was intact. The rotator cuff demonstrated a 2 x 2 cm full thickness supraspinatus tear. The remainder of the rotator cuff was intact. The subacromial space demonstrated moderate bursitis with sloping of the anterolateral acromion. DESCRIPTION OF PROCEDURE: After risks and benefits of the procedure were discussed and questions were answered, an informed consent was signed and placed on chart. The operative site was confirmed in the preoperative holding area initialed by the surgeon. The patient was then transferred to the operating room and after adequate levels of general endotracheal anesthetic were obtained, a timeout was called, confirming the operative site. Examination under anesthesia was performed with the above findings noted. The left shoulder and upper extremity were prepped and draped in the usual sterile fashion. The shoulder joint was injected with 20 mL of fluid as was the subacromial space. Standard posterior portal was placed. The arthroscopy was carried out with the above findings noted. Scope was redirected into the subacromial space. Lateral portal was created. Bursectomy was performed and the acromion was planed to a flat type 1 acromion. The lateral portal was then extended. The deltoid was split in line with its fibers leaving attached to the acromion. The rotator cuff tear was mobilized and a bleeding bony bed was prepared just off the articular surface and two corkscrew anchors were placed and a modified Mickey-Aris repair was performed with an anatomic repair obtained. No undue tension was noted with the arm at the side. The shoulder was copiously irrigated. The deltoid was repaired in a enxp-yb-diaa fashion using #2 FiberWire in a xombka-wl-oouar interrupted fashion. The wound was further irrigated, 2-0 Vicryl was used to reapproximate the subcutaneous tissue and skin was closed with 4-0 nylon in a running alternating horizontal mattress fashion. The port site was closed with 4-0 nylon in a fashion. Shoulder was injected with Duramorph. The port sites were infiltrated with plain Marcaine. A soft dressing and sling were applied. The patient was transferred to the recovery room awake and in stable condition. Job ID: [id number] DocumentID: [id number] Dictated Date: 09/15/2019 10:38:10 Equipment Operating Engineer Date: 09/15/2019 12:26:03 Dictated By: TOMAS HALL MD
[2019-09-15] MEDS ORDERED: OXYC-471 PO (12:53)
--- NOTE | 2019-09-15 13:35 | NUR ---
NO CHANGE IN SITE, CMS OR PAIN ASSESSMENTS. HAS BEEN UP TO BR WITH ASSIST TO VOID, GAIT STEADY. PT AND DAUGHTER STATE THEY ARE READY FOR DISMISSAL.
--- NOTE | 2019-09-15 14:12 | Anesthesia-General Post-Op ---
General Patient Condition Mental Status/LOC: Same as Preop Cardiovascular: Satisfactory Nausea/Vomiting: Absent Respiratory: Satisfactory Pain: Controlled Complications: Absent Post Op Complications Complications None Follow Up Care/Instructions Patient Instructions None needed. Anesthesia/Patient Condition Patient Condition Patient is doing well, no complaints, stable vital signs, no apparent adverse anesthesia problems. No complications reported per nursing. CRESENCIO MEADOWS CRNA Sep 15, 2019 14:12
--- NOTE | 2019-09-15 14:12 | Anesthesia-Regional Post-Op ---
Regional Patient Condition Mental Status: Alert, Oriented x3 Circulation: Same as Pre-Op Headache: Absent Sensation: Full Recovery Motor Block: Absent Post Op Complications Complications None Follow Up Care/Instructions Patient Instructions None needed. Anesthesia/Patient Condition Patient is doing well, no complaints, stable vital signs, no apparent adverse anesthesia problems. No complications reported per nursing. CRESENCIO MEADOWS CRNA Sep 15, 2019 14:12
== END 2019-09-15 13:35 | disposition home or self-care (01) ==
LOC: SDC 07:57
PROVIDERS: ATTEND Orthopaedic Surgery
DX: M75.102 Unspecified rotator cuff tear or rupture of left shoulder, not specified as traumatic (principal); M75.52 Bursitis of left shoulder; Z11.2 Encounter for screening for other bacterial diseases; F32.9 Major depressive disorder, single episode, unspecified; E03.9 Hypothyroidism, unspecified; M16.9 Osteoarthritis of hip, unspecified; E78.00 Pure hypercholesterolemia, unspecified; I48.91 Unspecified atrial fibrillation; Z79.899 Other long term (current) drug therapy; Z79.890 Hormone replacement therapy; Z79.82 Long term (current) use of aspirin; Z79.01 Long term (current) use of anticoagulants; Z87.891 Personal history of nicotine dependence; G47.33 Obstructive sleep apnea (adult) (pediatric); K21.9 Gastro-esophageal reflux disease without esophagitis; F03.90 Unspecified dementia, unspecified severity, without behavioral disturbance, psychotic disturbance, mood disturbance, and anxiety; F41.9 Anxiety disorder, unspecified; Z96.641 Presence of right artificial hip joint; D50.9 Iron deficiency anemia, unspecified
CPT/HCPCS: 23412; 29822; 29826; 87081; C1713